=== PATIENT | female | born 1970 | race Caucasian/White ===

== ENCOUNTER 2020-12-29 10:11 | Emergency (ER) | payer OTHER, SELFPAY ==
[2020-12-29] VITALS (7 sets, daily range): BP systolic 150–189; BP diastolic 83–97; PULSE 47–69; RESP 14–18; TEMP 35.9–37.3; O2SAT 93–98; BMI 33.3
--- NOTE | ~2020-12-29 | XR_ITS ---
EXAMINATION: THORACIC AND LUMBAR SPINE X-RAY CLINICAL INFORMATION: Check for wire COMPARISON: None TECHNIQUE: 2 views of the thoracic spine and 2 views of the lumbar spine FINDINGS: Thoracic spine: Bone alignment is normal. No fracture or dislocation is seen. There is multilevel degenerative spondylosis. Paraspinal soft tissues are normal. No foreign body or surgical device is seen. Lumbar spine: Bone alignment is normal. No fracture or dislocation is seen. The disc spaces are normal. There is lower lumbar spine facet arthritis. There are surgical clips in the right upper quadrant suggestive of previous cholecystectomy. There is excreted contrast in the renal collecting systems and bladder. No foreign body is seen. No surgical device in the lumbar spine is seen. XR/XR lumbar spine 2-3V IMPRESSION: No foreign body or surgical device in the thoracic or lumbar spine is seen.
--- NOTE | ~2020-12-29 | CT_ITS ---
EXAMINATION: CT ANGIOGRAM HEAD CT ANGIOGRAM NECK CLINICAL INFORMATION: Aneurysm. Headache. COMPARISON: CT head from 12/29/2020. TECHNIQUE: Initial noncontrast temp recruiter imaging of the head and neck was performed. Comparison is made with noncontrast head CT from earlier today. Test bolus sequences followed by intravenous administration 70 mL of Omnipaque 350. Helical imaging was performed in the axial plane from the aortic arch to the skull vertex. Delayed postcontrast imaging of the head was also performed. The data was processed at the wood technologist's workstation for generation of MIP sequences. Angled MIPs and volume rendered reformatted images were also generated at an offline 3D workstation. Stenoses are assessed in accordance with NASCET criteria unless otherwise indicated. This CT examination was performed using dose optimization techniques as appropriate, variously including the following: *Automated exposure control. *Adjustment of mA and/or kV according to patient size (this includes techniques or standardized protocols for targeted exams where dose is matched to indication/reason for exam; i.e. extremities or head). *Use of iterative reconstruction technique. DLP: 1652 mGy-cm FINDINGS: CT Head: There appears to be a degree of confluent central pontine hypoattenuation. Otherwise, there is no evidence of acute intracranial hemorrhage or edematous territorial infarction. There is no abnormal attenuation within the brain parenchyma. Simon-white matter differentiation is preserved. The ventricles are normal in size and configuration. No evidence for obstructive hydrocephalus. No abnormal mass effect or midline shift. No extra-axial fluid collections. No pathologic intra-axial enhancement. No acute soft tissue or osseous abnormalities. Mild mucosal thickening of the paranasal sinuses. Periapical lucencies associated with the maxillary right 2nd premolar and mandibular bilateral premolars/molars. The mastoid air cells and middle ear cavities are clear. CT Neck: The thyroid gland and remaining cervical soft tissues are within normal limits. Reversal the normal cervical lordosis centered on C4. Right convex curvature of the cervicothoracic junction. Moderate degenerative arthropathy of the atlantodental articulation with calcification of the transverse ligament. There is a well ossified structure filling the right-sided C5-C6 neural foramen. Facet and uncovertebral joint arthropathy leads to osseous encroachment on the neural foramina at C7-T1 and T1-T2. CT Upper Chest: Few scattered perivascular groundglass opacities in the visualized upper lungs. Upper mediastinum are within normal limits. Neck CTA: Aortic Arch: The visualized portion of the ascending aorta measures up to 4.1 cm in diameter. Normal contour and caliber of the aortic arch. Two vessel branching pattern of the arch with left common carotid artery arising from the brachiocephalic trunk. Great Vessel Origins: No significant stenosis of the branch origins. Right Common Carotid Artery: No focal stenosis or occlusion. Cervical Right Internal Carotid Artery: Mild calcific atherosclerotic disease of the carotid bulb and proximal internal carotid artery without flow-limiting stenosis. Retropharyngeal course. Left Common Carotid Artery: No focal stenosis or occlusion. Cervical Left Internal Carotid Artery: Mild calcific atherosclerotic disease of the carotid bulb and proximal internal carotid artery without flow-limiting stenosis. Retropharyngeal course. Cervical Right Vertebral Artery: Co-dominant. No focal stenosis or occlusion. Cervical Left Vertebral Artery: Co-dominant. No focal stenosis or occlusion. Brain CTA: Intracranial Internal Carotid Arteries: Calcific atherosclerotic disease of the intracranial internal carotid arteries without occlusion or flow-limiting stenosis. Right Anterior Cerebral Artery: Normal A1 segment. Normal opacification of the distal BIENVENIDO segments. Left Anterior Cerebral Artery: Normal A1 segment. Normal opacification of the distal BIENVENIDO segments. Anterior Communicating Artery: Normal. Right Middle Cerebral Artery: Normal M1 segment of the MCA without focal stenosis or occlusion. Normal arborization of the distal segments. Left Middle Cerebral Artery: Normal M1 segment of the MCA without focal stenosis or occlusion. Normal arborization of the distal segments. Right Vertebral Artery: There is a focal moderate narrowing of the mid V4 segment just proximal to the takeoff of the posterior inferior cerebellar artery (image [id number]). 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 Normal opacification of the proximal segments of the posterior inferior cerebellar artery. Partial reconstitution in caliber of the distal V4 segment. Left Vertebral Artery: Normal V4 segment. Normal opacification of the proximal segments of the posterior inferior cerebellar artery. Basilar Artery: Normal without focal stenosis or occlusion. Normal appearance of the proximal superior cerebellar arteries. Right Posterior Cerebral Artery: Normal P1 segment. Normal opacification of the distal ACQUISITION ANALYST segments. Left Posterior Cerebral Artery: Normal P1 segment. Normal opacification of the distal ACQUISITION ANALYST segments. Normal opacification of the superior sagittal, straight, transverse, and sigmoid sinuses. CT/CT angio head neck IMPRESSION: 1. Apparent confluent region of central pontine hypoattenuation. Recommend further characterization with MRI. 2. Moderate focal narrowing of the mid V4 segment of the right vertebral artery just proximal to the origin of the right-sided PICA. There is a 0.1 cm sessile aneurysmal outpouching of the anterior wall the V4 segment just proximal to the stenosis. 3. No evidence of additional acute intracranial hemorrhage or edematous territorial infarction. 4. CTA of the head and neck without additional proximal occlusion or flow-limiting stenosis.
--- NOTE | ~2020-12-29 | CT_ITS ---
EXAMINATION: CT HEAD WITHOUT CONTRAST CLINICAL INFORMATION: Right-sided headache, neck pain. COMPARISON: CT head noncontrast 01/21/2013 TECHNIQUE: Contiguous axial imaging was performed from the skull base to vertex without intravenous administration of contrast. Additional 2-D coronal and sagittal reformatted images are generated on the CT workstation and uploaded to PACS. This CT examination was performed using dose optimization techniques as appropriate, variously including the following: *Automated exposure control *Adjustment of mA and/or kV according to patient size (this includes techniques or standardized protocols for targeted exams where dose is matched to indication/reason for exam; i.e. extremities or head) *Use of iterative reconstruction technique DLP: 702 mGy-cm FINDINGS: There is no intracranial hemorrhage, hematoma, or extra-axial fluid collection. The ventricles are normal in size. There is no hydrocephalus or mass effect. There is subtle accentuated decreased attenuation in the right vertex white matter. No cortical involvement or mass effect. The marrero-white matter is otherwise symmetric. No midline shift. There is no visible acute territorial infarct or visible mass lesion. The calvarium appears intact. There is no pneumocephalus or orbital emphysema. The visualized sinuses and middle ears and mastoid air cells show no significant mucosal thickening. There are no air-fluid levels. CT/CT head/brain wo con IMPRESSION: 1. Question subtle decreased attenuation white matter right vertex. No mass effect. This may be further assessed with MRI brain. 2. No intracranial hemorrhage,, hydrocephalus, or midline shift.
--- NOTE | ~2020-12-29 | XR_ITS ---
EXAMINATION: THORACIC AND LUMBAR SPINE X-RAY CLINICAL INFORMATION: Check for wire COMPARISON: None TECHNIQUE: 2 views of the thoracic spine and 2 views of the lumbar spine FINDINGS: Thoracic spine: Bone alignment is normal. No fracture or dislocation is seen. There is multilevel degenerative spondylosis. Paraspinal soft tissues are normal. No foreign body or surgical device is seen. Lumbar spine: Bone alignment is normal. No fracture or dislocation is seen. The disc spaces are normal. There is lower lumbar spine facet arthritis. There are surgical clips in the right upper quadrant suggestive of previous cholecystectomy. There is excreted contrast in the renal collecting systems and bladder. No foreign body is seen. No surgical device in the lumbar spine is seen. XR/XR thoracic spine 2V IMPRESSION: No foreign body or surgical device in the thoracic or lumbar spine is seen.
--- NOTE | ~2020-12-29 | MR_ITS ---
EXAMINATION: MR BRAIN WITHOUT CONTRAST CLINICAL INFORMATION: Hypoattenuation of the abbi. Posterior fossa cerebrovascular accident. COMPARISON: CTA head and neck from 12/29/2020. TECHNIQUE: MRI of the brain was obtained using routine sequences without contrast. FINDINGS: No focal restricted diffusion is demonstrated to suggest acute or subacute cerebral ischemia. No evidence of acute or chronic hemorrhagic products on heme-sensitive imaging. Scattered periventricular, deep white matter, and brainstem T2 FLAIR hyperintensities consistent with moderate underlying microangiopathy. The ventricles are normal in morphology and size. No abnormal mass effect. No midline shift. Normal appearance of the pituitary gland. Normal positioning of the cerebellar tonsils. Normal arterial and venous vascular flow voids are present. Normal, homogeneous marrow signal. Mild mucosal thickening of the paranasal sinuses. No signal abnormalities within the mastoids. MR/MR head/brain wo con IMPRESSION: 1. No acute intracranial abnormalities. 2. Moderate nonspecific white matter changes most commonly seen with microangiopathy.
--- NOTE | 2020-12-29 11:10 | ED.HA ---
HPI - Headache General Chief Complaint: Headache Stated Complaint: N/V W/DIZZINESS Time Seen by Provider: 12/29/20 11:09 Related Data Allergies Allergy/AdvReac Type Severity Reaction Status Date / Time azithromycin [From ZITHROMAX] Allergy Intermediate HIVES & Unverified 01/02/20 16:26 RASH bupropion [From WELLBUTRIN] Allergy Mild RASH Unverified 01/02/20 16:26 venlafaxine [From EFFEXOR] Allergy Mild RASH Unverified 01/02/20 16:26 citalopram [Celexa] Allergy Unknown Verified 11/12/14 00:00 doxycycline [DOXYCYCLINE] AdvReac Mild NAUSEA & Unverified 01/02/20 16:26 VOMITING BuPROPion HCl Allergy Unknown Uncoded 11/12/14 00:00 Doxycycline Hyclate Allergy Unknown Uncoded 11/12/14 00:00 PMFSH Past Medical History Medical History (Updated 12/29/20 @ 11:08 by Rosalina Liriano RN) Coronary artery disease Hypertension Physical Exam Vital Signs: Vital Signs: Last Vital Signs Temp 96.7 F L 12/29/20 11:06 Pulse 67 12/29/20 11:06 Resp 16 12/29/20 11:06 BP 189/88 H 12/29/20 11:06 Pulse Ox 98 12/29/20 11:06 Body Mass Index 33.3 Course Course Course Narrative: 11:12 am- 50-year-old female with 5 days of right-sided neck pain and right-sided headache. Patient had COVID at the end of November. Patient denies visual changes. Patient has migraines but states this is not like her usual migraine. Patient has no focal neuro deficits. Patient is safe to wait in the waiting room. Ordered head CT, labs, inflammatory markers.
[2020-12-29 12:37] LABS: Basophils Percent Auto 0.3 % (0-2); Hemoglobin 12.9 g/dl (12.0-16.0); Imm Gran Abs Auto 0.04 X10*3/uL (0.00-0.03); Imm Gran Pct Auto 0.6 % (0.0-0.4); MANUAL DIFF FLAG SCAN; Mean Corpuscular Hemoglobin 30.1 pg (27.0-33.0); PLT CLUMP 1; Red Blood Count 4.28 X10*6/uL (4.20-5.50); Red Cell Distribution Width 13.2 % (11.0-16.0); SCAN SMEAR FLAG 1
[2020-12-29 12:38] LABS: Eosinophils Absolute Auto 0.2 X10*3/uL (0.0-0.4); Eosinophils Percent Auto 2.7 % (0-4); Hematocrit 38.8 % (37-47); Lymphocytes Absolute Auto 1.8 X10*3/uL (1.2-4.9); Lymphocytes Percent Auto 25.9 % (20-40); Mean Corpuscular HGB Conc 33.2 g/dl (31.0-35.0); Mean Corpuscular Volume 90.7 fL (80-98); Mean Platelet Volume 9.9 fL (9.4-12.3); Monocytes Absolute Auto 0.6 X10*3/uL (0.1-1.2); Monocytes Percent Auto 8.1 % (2-11); Neutrophils Absolute Auto 4.4 X10*3/uL (2.0-8.3); Neutrophils Percent Auto 62.4 % (45-73)
[2020-12-29 12:50] LABS: Alanine Aminotransferase 44 U/L (0-31); Albumin Level 3.5 g/dL (3.5-5.0); Alkaline Phosphatase 198 U/L (39-117); Anion Gap 12 (12-20); Aspartate Amino Transferase 73 U/L (5-31); Bilirubin Total 0.6 mg/dL (0.0-1.0); Blood Urea Nitrogen 8 mg/dL (9-16); C Reactive Protein 1.33 mg/dL (< or = 0.50); Calcium 8.8 mg/dL (8.4-10.2); Carbon Dioxide 24 mmol/L (22-29); Chloride 107 mmol/L (96-108); Creatinine Clr Calc Pharmacy 116.5; Estimated Glomerular Filt Rate > 60; Glucose Random 236 mg/dL (60-115); Potassium 4.1 mmol/L (3.3-5.1); Sodium 139 mmol/L (135-145); Total Protein 6.5 g/dL (6.5-8.0)
--- NOTE | 2020-12-29 12:51 | ED_ITS ---
HPI - Headache General Chief Complaint: Headache Stated Complaint: N/V W/DIZZINESS Time Seen by Provider: 12/29/20 11:09 History of Present Illness HPI Narrative: The patient is a 50-year-old female with a history of coronary artery disease history of aortic aneurysms. History of diabetes. Presented today with having headaches. She also has a history of migraines. Patient's headache i on the right side. It is dull. Associated with nausea. Patient claims the headache has been ongoing for about 5 days been fairly constant and was fairly abrupt in onset. Patient denies any diaphoresis. Denies any new focal weakness. Patient denies any fever chills any neck pain. No recent travel. Patient claims the headache is slightly different than previous bouts of migraine. Related Data Home Medications Medication Instructions Recorded Confirmed acetaminophen 500 mg tablet 1 tab PO Q6H PRN 12/29/20 12/29/20 albuterol sulfate mg INHALATION Q4-6H PRN 12/29/20 albuterol sulfate 90 mcg/actuation 2 puff INHALATION Q4H PRN 12/29/20 12/29/20 aerosol inhaler aspirin 81 mg tablet,delayed 1 tab PO DAILY 12/29/20 12/29/20 release carvedilol 12.5 mg tablet 1 tab PO BID 12/29/20 12/29/20 clopidogrel 75 mg tablet 1 tab PO DAILY 12/29/20 12/29/20 etanercept 50 mg/mL (1 mL) 1 syringe SUBCUT QWEEK 12/29/20 12/29/20 subcutaneous pen injector (Enbrel SureClick) fluticasone propionate 110 2 puff INHALATION BID 12/29/20 12/29/20 mcg/actuation HFA aerosol inhaler (Flovent HFA) glipizide 5 mg tablet, extended 1 tab PO DAILY 12/29/20 12/29/20 release 24 hr pregabalin 150 mg capsule mg PO BEDTIME 12/29/20 Allergies Allergy/AdvReac Type Severity Reaction Status Date / Time azithromycin [From ZITHROMAX] Allergy Intermediate HIVES & Unverified 01/02/20 16:26 RASH bupropion [From WELLBUTRIN] Allergy Mild RASH Unverified 01/02/20 16:26 venlafaxine [From EFFEXOR] Allergy Mild RASH Unverified 01/02/20 16:26 citalopram [Celexa] Allergy Unknown Unknown Verified 12/29/20 12:03 doxycycline [DOXYCYCLINE] AdvReac Mild NAUSEA & Unverified 01/02/20 16:26 VOMITING BuPROPion HCl Allergy Unknown Anaphylaxis Uncoded 12/29/20 12:03 Doxycycline Hyclate Allergy Unknown Unknown Uncoded 12/29/20 12:03 Review of Systems Review of Systems: Positive headache Positive nausea All systems reviewed otherwise negative [facility] Past Medical History Attestation statement: The following information was validated with the patient. Medical History Coronary artery disease Hypertension Social History Social History Alcohol intake: never Patient Tobacco Use Status: Never used Tobacco Use of substances other than those prescribed or required for medical reasons: No Advance Directives: No Advance Directives Information Provided: No Physical Exam Vital Signs: Vital Signs: Last Vital Signs Temp 99.1 F 12/29/20 19:01 Pulse 47 L 12/29/20 19:01 Resp 15 12/29/20 19:01 BP 164/83 H 12/29/20 19:01 Pulse Ox 93 12/29/20 19:01 Body Mass Index 33.3 Appearance: Alert. Oriented X3. No acute distress. Eyes: Pupils equal, round and reactive to light. ENT: Pharynx normal. Neck: Normal inspection. Neck supple. No lymph nodes noted. No crepitus CVS: Normal heart rate and rhythm. Pulses normal. Normal S1 and S2 Respiratory: No respiratory distress. Breath sounds normal. No Wheezing. No rales Abdomen: Soft and nontender. No rigidity. No distention. good BS x4 Skin: Skin warm and dry. Normal skin color. Normal skin turgor. Extremities: No lower extremity edema. Neurovascular intact to all extremities. No Lacerations. No Rash Neuro: Oriented X 3. No motor deficit. No sensory deficit. Moving all extermities. No slurred speech. Cranial nerves 2-12 grossly intact. [id number] intact. Rapid alternating movement intact. NIH Stroke Scale Internal: Initial- Upon Arrival Level of Consciousness: Alert Level of Consciousness Questions: Answers both questions correctly Level of Consciousness Commands: Performs both tasks correctly Best Gaze: Normal Visual: No visual loss Facial Palsy: Normal Motor Arm (Right): No drift Motor Arm (Left): No drift Motor Leg (Right): No drift Motor Leg (Left): No drift Limb Ataxia: Absent Sensory: Normal Best Language: No aphasia Dysarthia: Normal Extinction and Inattention: No abnormality Score: 0 MDM - Headache MDM Narrative Medical decision making narrative: Patient's CT the head was grossly negative for any acute evidence of bleeding. CTA of the head showed no obvious new occlusion. Patient's MRI of the head was negative for any acute evidence of stroke mass. Patient given multiple doses of pain medication with moderate relief. There is an aneurysm noted but patient has a history of the same. Patient is being follow on an outpatient basis. Will discharge patient home. Neurologically intact. NIH stroke scale was 0. In stable condition. Will discharge home. Patient has no fever no chills no nuchal rigidity unlikely secondary to meningitis. Differential Diagnosis Differential diagnosis: Likely migraine, tension headache, subarachnoid hemorrhage, headache and meningitis Medical Records Attestation: I reviewed the patient's medical records. Lab Data Attestation: I reviewed the patient's lab results. Result diagrams: 12/29/20 12:20 12/29/20 12:20 Labs: Lab Results 12/29/20 12/29/20 12/29/20 Range/Units 12:20 12:20 12:20 WBC 7.0 (4.8-10.8) X10*3/uL RBC 4.28 (4.20-5.50) X10*6/uL Hgb 12.9 (12.0-16.0) g/dl Hct 38.8 (37-47) % MCV 90.7 (80-98) fL MCH 30.1 (27.0-33.0) pg MCHC 33.2 (31.0-35.0) g/dl RDW 13.2 (11.0-16.0) % Plt Count 106 L (160-400) X10*3/uL MPV 9.9 (9.4-12.3) fL Immature Gran % (Auto) 0.6 H (0.0-0.4) % Neut % (Auto) 62.4 (45-73) % Lymph % (Auto) 25.9 (20-40) % Benzie % (Auto) 8.1 (2-11) % Eos % (Auto) 2.7 (0-4) % Baso % (Auto) 0.3 (0-2) % Lymph # (Auto) 1.8 (1.2-4.9) X10*3/uL Benzie # (Auto) 0.6 (0.1-1.2) X10*3/uL Eos # (Auto) 0.2 (0.0-0.4) X10*3/uL Baso # (Auto) 0.0 (0.0-0.2) X10*3/uL Abs Immat Gran (auto) 0.04 H (0.00-0.03) X10*3/uL Absolute Neuts (auto) 4.4 (2.0-8.3) X10*3/uL Absolute Nucleated RBC 0.000 (0.0-0.012) X10*3/uL Nucleated RBC % (auto) 0.0 (0.0-0.2) /100WBC Smear Tech's Comments VERIFIED ESR 63 H (0-20) MM/HR Sodium 139 (135-145) mmol/L Potassium 4.1 (3.3-5.1) mmol/L Chloride 107 (96-108) mmol/L Carbon Dioxide 24 (22-29) mmol/L Anion Gap 12 (12-20) BUN 8 L (9-16) mg/dL Creatinine 0.65 (0.5-1.4) mg/dL Estim Creat Clear Calc 116.5 Estimated GFR > 60 Random Glucose 236 H (60-115) mg/dL Calcium 8.8 (8.4-10.2) mg/dL Total Bilirubin 0.6 (0.0-1.0) mg/dL AST 73 H (5-31) U/L ALT 44 H (0-31) U/L Alkaline Phosphatase 198 H (39-117) U/L C-Reactive Protein 1.33 H (< or = 0.50) mg/dL Total Protein 6.5 (6.5-8.0) g/dL Albumin 3.5 (3.5-5.0) g/dL Discharge Plan Discharge Clinical Impression: Headache Patient Disposition: Home, Self-Care Instructions: Acute Headache (ED) Prescriptions: No Action carvedilol 12.5 mg tablet 1 tab PO BID RF: 0 albuterol sulfate 2.5 mg /3 mL (0.083 %) solution for nebulization inhalation Q4-6H PRN (Reason: Shortness Of Breath) RF: 0 glipizide 5 mg tablet extended release 24hr 1 tab PO DAILY RF: 0 clopidogrel 75 mg tablet 1 tab PO DAILY RF: 0 aspirin 81 mg tablet,delayed release (DR/EC) 1 tab PO DAILY RF: 0 acetaminophen 500 mg tablet 1 tab PO Q6H PRN (Reason: Pain) RF: 0 albuterol sulfate 90 mcg/actuation HFA aerosol inhaler 2 puff inhalation Q4H PRN (Reason: wheezing) RF: 0 Flovent HFA 110 mcg/actuation HFA aerosol inhaler 2 puff inhalation BID RF: 0 pregabalin 150 mg capsule PO BEDTIME RF: 0 Enbrel SureClick 50 mg/mL (1 mL) pen injector 1 syringe subcut QWEEK RF: 0 Referrals: Physician,Unknown [Primary Care Provider] - 2 days (An aneurysm was also found in your aorta. You have a history of aneurysm in your aorta. Please closely follow-up with your surgeon.)
[2020-12-29 12:54] LABS: Platelet Count 106 X10*3/uL (160-400); SLIDE REVIEW VERIFIED
[2020-12-29] MEDS: Metoclopramide HCl 10 MG/2 ML VIAL IVPUSH (13:11)
[2020-12-29] MEDS: diphenhydrAMINE HCL 50 MG/ML VIAL 25 MG IVPUSH (13:11)
[2020-12-29] MEDS: HYDROmorphone HCl 0.5 MG/0.5 ML SYRINGE IVPUSH ×3 (13:12→19:06)
[2020-12-29 13:31] LABS: Erythrocyte Sedimentation Rate 63 MM/HR (0-20)
== END 2020-12-29 19:27 | disposition home or self-care (01) ==
PROVIDERS: Physician Assistant; Emergency Provider Emergency Medicine Emergency Medical Services
DX: R51.9 Headache, unspecified (principal); M54.2 Cervicalgia; M54.5 Low back pain; M54.6 Pain in thoracic spine; I25.10 Atherosclerotic heart disease of native coronary artery without angina pectoris; E11.9 Type 2 diabetes mellitus without complications; Z79.899 Other long term (current) drug therapy
CPT/HCPCS: 36415; 70450; 70496; 70498; 70551; 72070; 72100; 80053; 85025; 85652; 86140; 96374; 96375; 96376; 99284; 99285; J1170; J1200; J2765

== ENCOUNTER 2021-02-04 11:26 | Outpatient (REF) | payer OTHER, SELFPAY ==
--- NOTE | ~2021-02-04 | US_ITS ---
EXAMINATION: US ABDOMEN COMPLETE CLINICAL INFORMATION: Elevated LFTs. COMPARISON: Previous exam October 2019 TECHNIQUE: Real-time imaging of the abdominal viscera. FINDINGS: PANCREAS: Normal. ABDOMINAL AORTA: The proximal, mid, and distal segments are normal in caliber. INFERIOR VENA CAVA: Visualized portions are normal. LIVER: The liver is enlarged. Liver echotexture is slightly increased. Contours normal. No focal hepatic lesion. There is no intrahepatic biliary duct dilatation seen. GALLBLADDER: Surgically absent. COMMON BILE DUCT: Normal in caliber measuring 0.87 cm in diameter. RIGHT KIDNEY: Normal. No hydronephrosis. No renal calculi or focal parenchymal lesions. The kidney measures 13.4 cm in maximum dimension. LEFT KIDNEY: Normal. No hydronephrosis. No renal calculi or focal parenchymal lesions. The kidney measures 14.0 cm in maximum dimension. SPLEEN: The spleen is slightly enlarged. The spleen measures 15.5 cm in maximum dimension. FREE FLUID: None. US/US abdomen complete IMPRESSION: Enlarged echogenic liver probably representing fatty infiltration. Slightly enlarged spleen.
[2021-02-04 14:03] LABS: Basophils Percent Auto 0.4 % (0-2); Hemoglobin 14.3 g/dl (12.0-16.0); MANUAL DIFF FLAG SCAN; Mean Platelet Volume 10.8 fL (9.4-12.3); Monocytes Absolute Auto 0.4 X10*3/uL (0.1-1.2); PLT CLUMP 1; SCAN SMEAR FLAG 1
[2021-02-04 14:05] LABS: Eosinophils Absolute Auto 0.2 X10*3/uL (0.0-0.4); Eosinophils Percent Auto 2.9 % (0-4); Hematocrit 42.1 % (37-47); Imm Gran Abs Auto 0.04 X10*3/uL (0.00-0.03); Imm Gran Pct Auto 0.6 % (0.0-0.4); Lymphocytes Absolute Auto 1.9 X10*3/uL (1.2-4.9); Lymphocytes Percent Auto 26.6 % (20-40); Mean Corpuscular Hemoglobin 30.2 pg (27.0-33.0); Mean Corpuscular Volume 88.8 fL (80-98); Monocytes Percent Auto 5.9 % (2-11); Neutrophils Absolute Auto 4.5 X10*3/uL (2.0-8.3); Neutrophils Percent Auto 63.6 % (45-73); Platelet Count 119 X10*3/uL (160-400); Red Blood Count 4.74 X10*6/uL (4.20-5.50); Red Cell Distribution Width 12.7 % (11.0-16.0)
[2021-02-04 14:09] LABS: INTERNATIONAL NORM RATIO 1.1 (0.9-1.1); Prothrombin Time 12.1 SEC (9.9-13.0)
[2021-02-04 14:29] LABS: Alanine Aminotransferase 101 U/L (0-31); Albumin Level 3.8 g/dL (3.5-5.0); Alkaline Phosphatase 197 U/L (39-117); Aspartate Amino Transferase 173 U/L (5-31); Bilirubin Direct 0.2 mg/dL (0.0-0.5); Bilirubin Total 0.5 mg/dL (0.0-1.0); Total Protein 7.3 g/dL (6.5-8.0)
[2021-02-11 17:21] LABS: FIB-ALT 92 U/L (6-29); FIB-Alpha-2-Macroglobulin 370 mg/dL (106-279); FIB-Apolipoprotein A1 127 mg/dL (101-198); FIB-GGT 718 U/L (3-55); FIB-Haptoglobin 247 mg/dL (43-212); FIB-Total Bilirubin 0.4 mg/dL (0.2-1.2); Liver Fibrosis Score 0.67; Liver Fibrosis Stage F3; Nec Inflam Act Grade A3; Nec Inflam Act Score 0.67
== END 2021-02-04 11:27 | disposition home or self-care (01) ==
LOC: HO.HMGCX 11:26
PROVIDERS: PCP Physician Assistant Medical; Visit Provider Internal Medicine Gastroenterology
DX: R79.89 Other specified abnormal findings of blood chemistry (principal)
CPT/HCPCS: 36415; 76700; 80076; 81596; 85025; 85610

== ENCOUNTER 2021-03-26 09:56 | Emergency (ER) | payer OTHER, SELFPAY ==
--- NOTE | ~2021-03-26 | CT_ITS ---
EXAMINATION: CT ABDOMEN AND PELVIS WITH CONTRAST CLINICAL INFORMATION: Right abdominal pain. History of cholecystectomy. COMPARISON: None TECHNIQUE: Multidetector volumetric images were obtained from the superior aspect of the liver through the pubic symphysis following administration 85 mL of Omnipaque 350 intravenous contrast. Sagittal and coronal reformatted images were obtained on the technologist's workstation. Oral contrast: No This CT examination was performed using dose optimization techniques as appropriate, variously including the following: *Automated exposure control *Adjustment of mA and/or kV according to patient size (this includes techniques or standardized protocols for targeted exams where dose is matched to indication/reason for exam; i.e. extremities or head) *Use of iterative reconstruction technique DLP: 8.9 mGy-cm FINDINGS: LUNG BASES: There is minimal right basilar dependent atelectasis. The heart size is borderline normal. There are coronary artery calcifications present LIVER, GALLBLADDER, AND BILIARY TREE: The liver is mildly enlarged in size measuring 22 cm in length, normal shape, and attenuation. No focal hepatic lesion or biliary ductal dilatation is present. The gallbladder has been surgically removed. PANCREAS: Unremarkable. SPLEEN: Unremarkable. ADRENAL GLANDS: Unremarkable. KIDNEYS AND URETERS: The kidneys are normal in size, shape, and attenuation. No hydronephrosis, hydroureter, or calculi seen. No perinephric stranding. BLADDER: Unremarkable. GASTROINTESTINAL TRACT: There is scattered stool seen throughout the entire colon without distention. There is nonspecific mild haziness in the right paracolic gutter but no mass or lymph nodes seen. ABDOMINAL WALL: No significant hernia is appreciated. LYMPH NODES: Normal. VASCULAR: Unremarkable. PELVIC VISCERA: There are bilateral ovarian cysts. The left cyst measures 3.4 x 2.6 cm and the right cyst measures 1.6 cm. The uterus is anteverted and appears unremarkable. OSSEOUS STRUCTURES: There is small millimeter sclerotic lesion right proximal femur.. No aggressive lytic or sclerotic process seen. There is mild L4-L5 and L5-S1 facet joint arthropathy. CT/CT abdomen pelvis w con IMPRESSION: No acute intra-abdominal process seen. Nonspecific haziness in the right paracolic gutter. Normal appendix. Normal small bowel, terminal ileum and cecum. No radiopaque urolith or hydroureteronephrosis. Fleischner guidelines were followed.
[2021-03-26 10:04] VITALS: BP 181/85; PULSE 71; O2SAT 98
[2021-03-26 10:09] VITALS: BP 188/79; PULSE 70; RESP 18; TEMP 37.1; O2SAT 95; BMI 34.1
--- NOTE | 2021-03-26 10:15 | ED.ABDPAIN ---
HPI - Abdominal Pain General Chief Complaint: Abdominal Pain Stated Complaint: RT UPPER QUAD PAIN Time Seen by Provider: 03/26/21 10:02 Source: patient Limitations: no limitations History of Present Illness HPI narrative: This is a 50-year-old female who complains of pain on the right side of her abdomen. She said it began as a cramping pain 3 4 days ago, but then persisted and became worse and constant. The patient denies any fever. She denies any chest pain shortness of breath. She has chronic nausea denies any change recently, denies vomiting. She denies any constipation or diarrhea. Denies any urinary symptoms. The pain sometimes goes through to the back. She does have a known history of abdominal aortic aneurysm, cardiac stenting, diabetes mellitus, rheumatoid arthritis. Patient had gone to her primary care physician today and was referred to the ED for evaluation Related Data Home Medications Medication Instructions Recorded Confirmed acetaminophen 500 mg tablet 1 tab PO Q6H PRN 12/29/20 12/29/20 albuterol sulfate mg INHALATION Q4-6H PRN 12/29/20 albuterol sulfate 90 mcg/actuation 2 puff INHALATION Q4H PRN 12/29/20 12/29/20 aerosol inhaler aspirin 81 mg tablet,delayed 1 tab PO DAILY 12/29/20 12/29/20 release carvedilol 12.5 mg tablet 1 tab PO BID 12/29/20 12/29/20 clopidogrel 75 mg tablet 1 tab PO DAILY 12/29/20 12/29/20 etanercept 50 mg/mL (1 mL) 1 syringe SUBCUT QWEEK 12/29/20 12/29/20 subcutaneous pen injector (Enbrel SureClick) fluticasone propionate 110 2 puff INHALATION BID 12/29/20 12/29/20 mcg/actuation HFA aerosol inhaler (Flovent HFA) glipizide 5 mg tablet, extended 1 tab PO DAILY 12/29/20 12/29/20 release 24 hr pregabalin 150 mg capsule mg PO BEDTIME 12/29/20 Previous Rx's Medication Instructions Recorded ondansetron HCl 4 mg tablet 4 mg PO Q6H PRN #10 tab 03/26/21 (Zofran) oxycodone-acetaminophen 5 mg-325 1 tab PO Q4-6H PRN #10 tab 03/26/21 mg tablet (Percocet) Allergies Allergy/AdvReac Type Severity Reaction Status Date / Time azithromycin [From ZITHROMAX] Allergy Intermediate HIVES & Verified 03/26/21 10:13 RASH bupropion [From WELLBUTRIN] Allergy Mild RASH Verified 03/26/21 10:13 venlafaxine [From EFFEXOR] Allergy Mild RASH Verified 03/26/21 10:13 citalopram [Celexa] Allergy Unknown Unknown Verified 12/29/20 12:03 doxycycline [DOXYCYCLINE] AdvReac Mild NAUSEA & Verified 03/26/21 10:13 VOMITING BuPROPion HCl Allergy Unknown Anaphylaxis Uncoded 12/29/20 12:03 Doxycycline Hyclate Allergy Unknown Unknown Uncoded 12/29/20 12:03 Review of Systems Review of Systems Yes all other systems are reviewed and are negative Constitutional: Reports as per HPI and Denies fever(s) Eyes: Reports as per HPI and Reports no additional eye complaints Reports system reviewed and no additional complaints, except as documented, Reports as per HPI, Denies nasal congestion, Denies nasal discharge and Denies sore throat Cardiovascular: Reports as per HPI, Denies chest pain and Denies dyspnea Respiratory: Reports as per HPI, Denies cough and Denies dyspnea Gastrointestinal: Reports as per HPI, Denies abdominal pain, Denies diarrhea, Reports nausea and Reports vomiting Genitourinary: Reports as per HPI, Denies hematuria, Denies urinary frequency and Denies dysuria Musculoskeletal: Reports no additional musculoskeletal complaints and Denies numbness Skin/Breast: Reports as per HPI and Denies rash Reports as per HPI, Denies focal weakness, Denies numbness and Denies Sensory deficit (Neuro) Psychiatric: Reports no additional psychiatric complaints and Reports as per HPI Endocrine: Reports no additional endocrine complaints and Reports as per HPI Hematologic/Lymphatic: Reports no additional hematologic/lymphatic complaints, Reports as per HPI and Reports other (No peripheral edema) Physical Exam Vital Signs: Vital Signs: Last Vital Signs Temp 99.0 F 03/26/21 10:56 Pulse 67 03/26/21 13:30 Resp 18 03/26/21 13:30 BP 131/79 03/26/21 13:30 Pulse Ox 94 03/26/21 13:30 BMI result Body Mass Index 34.1 Const: General: cooperative, no acute distress and alert Orientation/consciousness: patient oriented x3 HENMT: Head: Yes normal to inspection Eyes: General: appearance normal, both eyes and all related structures Eyelids: Yes eyelids normal Conjunctivae: conjunctivae normal Pupils: Equal, round and reactive pupils present Neck: Neck: Yes normal visual inspection and Yes supple Chest: Chest palpation & inspection: normal inspection of the chest Resp: Effort & Inspection: normal respiratory effort Auscultation: clear to auscultation bilaterally Cardio: Rate: regular rate Rhythm: regular rhythm Heart sounds: S1 normal heart sound present, S2 normal heart sound present, no gallops, no murmurs and no rubs GI: Palpation (GI): Soft to palpation, Tenderness to palpation present (GI) (Tender just superior to McBurney's point, worse toward the right upper quad) and Other GI palpation findings present (More mild epigastric tenderness, no left-sided tenderness.) Auscultation: normal bowel sounds, abnormal bowel sounds and Hypoactive bowel sounds present Skin: General skin exam: no rashes or lesions noted Neuro: General: patient oriented x3, no focal motor deficits and CN's II-XI intact bilaterally Cranial nerves: Yes Equal, round and reactive pupils present Cognition (Neuro): normal cognition Motor exam (neuro): 5/5 motor strength present throughout Sensory Exam: No Sensory deficit (Neuro) Extrem: General: Yes normal to inspection and Yes no pedal edema Psych: Appearance: grossly normal Affect: normal affect MDM - Abdominal Pain MDM Narrative Medical decision making narrative: Patient with complaint of right abdominal pain, had a somewhat exaggerated response to a light palpation of the abdomen, tender most on the right side. White blood cell count normal. LFTs normal. Urinalysis negative. CT of the abdomen and pelvis showed no concerning findings. Patient was treated with morphine initially but still had what she described as severe pain. She is being treated with an additional mg of Dilaudid as well as Toradol 15 mg IV. She was also given Zofran for nausea. Patient's blood sugar was monitored elevated in the 400 range but has come down with fluids and Lab Data Attestation: I reviewed the patient's lab results. Result diagrams: 03/26/21 10:21 03/26/21 10:21 Labs: Lab Results 03/26/21 03/26/21 03/26/21 Range/Units 10: 10:21 10:40 WBC 8.6 (4.8-10.8) X10*3/uL RBC 4.93 (4.20-5.50) X10*6/uL Hgb 14.8 (12.0-16.0) g/dl Hct 43.5 (37.0-47.0) % MCV 88.2 (80.0-98.0) fL MCH 30.0 (27.0-33.0) pg MCHC 34.0 (31.0-35.0) g/dl RDW 12.5 (11.0-16.0) % Plt Count 126 L (160-400) X10*3/uL MPV 10.4 (9.4-12.3) fL Immature Gran % (Auto) 0.3 (0.0-0.4) % Neut % (Auto) 68.8 (45-73) % Lymph % (Auto) 22.8 (20-40) % [place] % (Auto) 5.0 (2-11) % Eos % (Auto) 2.8 (0-4) % Baso % (Auto) 0.3 (0-2) % Lymph # (Auto) 2.0 (1.2-4.9) X10*3/uL [place] # (Auto) 0.4 (0.1-1.2) X10*3/uL Eos # (Auto) 0.2 (0.0-0.4) X10*3/uL Baso # (Auto) 0.0 (0.0-0.2) X10*3/uL Abs Immat Gran (auto) 0.03 (0.00-0.03) X10*3/uL Absolute Neuts (auto) 5.9 (2.0-8.3) x10*3/uL Absolute Nucleated RBC 0.000 (0.0-0.012) X10*3/uL Nucleated RBC % (auto) 0.0 (0.0-0.2) /100WBC Sodium 135 (135-145) mmol/L Potassium 4.7 (3.3-5.1) mmol/L Chloride 102 (96-108) mmol/L Carbon Dioxide 25 (22-29) mmol/L Anion Gap 13 (12-20) BUN 10 (9-16) mg/dL Creatinine 0.77 (0.5-1.4) mg/dL Estim Creat Clear Calc 99.5 Estimated GFR > 60 POC Glucose (60-115) mg/dL Random Glucose 423 H* (60-115) mg/dL Calcium 9.2 (8.4-10.2) mg/dL Total Bilirubin 0.3 (0.0-1.0) mg/dL Direct Bilirubin < 0.2 (0.0-0.5) mg/dL AST 65 H (5-31) U/L ALT 53 H (0-31) U/L Alkaline Phosphatase 154 H D (39-117) U/L Total Protein 7.2 (6.5-8.0) g/dL Albumin 3.6 (3.5-5.0) g/dL Lipase 38 (8-78) U/L Urine Color YELLOW Urine Appearance CLEAR Urine pH 6.0 (5.0-8.0) Ur Specific [place] 1.015 (1.005-1.025) Urine Protein 2+ H (NEG-TRACE) MG/DL Urine Glucose (UA) >=1000 H (NEG) MG/DL Urine Ketones NEG (NEG) MG/DL Urine Blood NEG (NEG) Urine Nitrite NEG (NEG) Ur Leukocyte Esterase NEG (NEG) Urine RBC 0 (0) /HPF Urine WBC 0 (0-4) /HPF Ur Squamous Epith Cells TRACE /LPF Urine Bacteria NONE /LPF Urine Test (NEGATIVE) 03/26/21 03/26/21 03/26/21 Range/Units 10:40 11:27 12:46 WBC (4.8-10.8) X10*3/uL RBC (4.20-5.50) X10*6/uL Hgb (12.0-16.0) g/dl Hct (37.0-47.0) % MCV (80.0-98.0) fL MCH (27.0-33.0) pg MCHC (31.0-35.0) g/dl RDW (11.0-16.0) % Plt Count (160-400) X10*3/uL MPV (9.4-12.3) fL Immature Gran % (Auto) (0.0-0.4) % Neut % (Auto) (45-73) % Lymph % (Auto) (20-40) % [place] % (Auto) (2-11) % Eos % (Auto) (0-4) % Baso % (Auto) (0-2) % Lymph # (Auto) (1.2-4.9) X10*3/uL [place] # (Auto) (0.1-1.2) X10*3/uL Eos # (Auto) (0.0-0.4) X10*3/uL Baso # (Auto) (0.0-0.2) X10*3/uL Abs Immat Gran (auto) (0.00-0.03) X10*3/uL Absolute Neuts (auto) (2.0-8.3) x10*3/uL Absolute Nucleated RBC (0.0-0.012) X10*3/uL Nucleated RBC % (auto) (0.0-0.2) /100WBC Sodium (135-145) mmol/L Potassium (3.3-5.1) mmol/L Chloride (96-108) mmol/L Carbon Dioxide (22-29) mmol/L Anion Gap (12-20) BUN (9-16) mg/dL Creatinine (0.5-1.4) mg/dL Estim Creat Clear Calc Estimated GFR POC Glucose 322 H 249 H (60-115) mg/dL Random Glucose (60-115) mg/dL Calcium (8.4-10.2) mg/dL Total Bilirubin (0.0-1.0) mg/dL Direct Bilirubin (0.0-0.5) mg/dL AST (5-31) U/L ALT (0-31) U/L Alkaline Phosphatase (39-117) U/L Total Protein (6.5-8.0) g/dL Albumin (3.5-5.0) g/dL Lipase (8-78) U/L Urine Color Urine Appearance Urine pH (5.0-8.0) Ur Specific [place] (1.005-1.025) Urine Protein (NEG-TRACE) MG/DL Urine Glucose (UA) (NEG) MG/DL Urine Ketones (NEG) MG/DL Urine Blood (NEG) Urine Nitrite (NEG) Ur Leukocyte Esterase (NEG) Urine RBC (0) /HPF Urine WBC (0-4) /HPF Ur Squamous Epith Cells /LPF Urine Bacteria /LPF Urine Test NEGATIVE (NEGATIVE) Imaging Data CT scan - abdomen: Radiologist's impression: IMPRESSION: No acute intra-abdominal process seen. ? Nonspecific haziness in the right paracolic gutter. Normal appendix. Normal small bowel, terminal ileum and cecum. ? No radiopaque urolith or hydroureteronephrosis. Discharge Plan Discharge Clinical Impression: Abdominal pain, Hyperglycemia Patient Disposition: Home, Self-Care Instructions: Abdominal Pain (ED) Additional Instructions: Follow-up with primary care physician. Return for any new or worsened symptoms such as uncontrolled abdominal pain, progressively worse pain, fever, vomiting. Prescriptions: New ondansetron HCl [Zofran] 4 mg tablet 4 mg PO Q6H PRN (Reason: nausea and vomiting) Qty: 10 RF: 0 oxycodone-acetaminophen [Percocet] 5-325 mg tablet 1 tab PO Q4-6H PRN (Reason: pain) Qty: 10 RF: 0 No Action carvedilol 12.5 mg tablet 1 tab PO BID RF: 0 albuterol sulfate 2.5 mg /3 mL (0.083 %) solution for nebulization inhalation Q4-6H PRN (Reason: Shortness Of Breath) RF: 0 glipizide 5 mg tablet extended release 24hr 1 tab PO DAILY RF: 0 clopidogrel 75 mg tablet 1 tab PO DAILY RF: 0 aspirin 81 mg tablet,delayed release (DR/EC) 1 tab PO DAILY RF: 0 acetaminophen 500 mg tablet 1 tab PO Q6H PRN (Reason: Pain) RF: 0 albuterol sulfate 90 mcg/actuation HFA aerosol inhaler 2 puff inhalation Q4H PRN (Reason: wheezing) RF: 0 Flovent HFA 110 mcg/actuation HFA aerosol inhaler 2 puff inhalation BID RF: 0 pregabalin 150 mg capsule PO BEDTIME RF: 0 Enbrel SureClick 50 mg/mL (1 mL) pen injector 1 syringe subcut QWEEK RF: 0 PMFSH Past Medical History Medical History (Updated 03/26/21 @ 13:42 by Renny Alexandra MD) Aortic aneurysm Coronary artery disease Diabetes Fatty liver Hypertension Rheumatoid arthritis Surgical History (Updated 03/26/21 @ 10:12 by Edna Avila) Hx of cholecystectomy Social History Social History Alcohol intake: never Patient Tobacco Use Status: Current everyday Tobacco user Smoked in Last 30 Days: Yes Use of substances other than those prescribed or required for medical reasons: No Advance Directives: No Advance Directives Information Provided: Yes
[2021-03-26 10:26] LABS: Basophils Percent Auto 0.3 % (0-2); Red Cell Distribution Width 12.5 % (11.0-16.0)
[2021-03-26 10:28] LABS: Eosinophils Absolute Auto 0.2 X10*3/uL (0.0-0.4); Eosinophils Percent Auto 2.8 % (0-4); Hematocrit 43.5 % (37.0-47.0); Hemoglobin 14.8 g/dl (12.0-16.0); Imm Gran Abs Auto 0.03 X10*3/uL (0.00-0.03); Imm Gran Pct Auto 0.3 % (0.0-0.4); Lymphocytes Percent Auto 22.8 % (20-40); Mean Corpuscular Volume 88.2 fL (80.0-98.0); Mean Platelet Volume 10.4 fL (9.4-12.3); Monocytes Absolute Auto 0.4 X10*3/uL (0.1-1.2); Neutrophils Absolute Auto 5.9 x10*3/uL (2.0-8.3); Neutrophils Percent Auto 68.8 % (45-73); Red Blood Count 4.93 X10*6/uL (4.20-5.50)
[2021-03-26 10:30] LABS: MANUAL DIFF FLAG NO; Platelet Count 126 X10*3/uL (160-400); White Blood Count 8.6 X10*3/uL (4.8-10.8)
[2021-03-26] MEDS: 0.9 % Sodium Chloride 1,000 ML 999 ML IV (10:42)
[2021-03-26] MEDS: ondansetron HCL 4 MG/2 ML VIAL IVPUSH (10:42)
[2021-03-26] MEDS: Morphine Sulfate 4 MG/ML CARTRIDGE IVPUSH (10:42)
[2021-03-26 10:56] VITALS: BP 178/82; PULSE 70; RESP 18; TEMP 37.2; O2SAT 95
[2021-03-26 10:59] LABS: Alanine Aminotransferase 53 U/L (0-31); Albumin Level 3.6 g/dL (3.5-5.0); Alkaline Phosphatase 154 U/L (39-117); Anion Gap 13 (12-20); Aspartate Amino Transferase 65 U/L (5-31); Bilirubin Direct < 0.2 mg/dL (0.0-0.5); Bilirubin Total 0.3 mg/dL (0.0-1.0); Blood Urea Nitrogen 10 mg/dL (9-16); Calcium 9.2 mg/dL (8.4-10.2); Carbon Dioxide 25 mmol/L (22-29); Chloride 102 mmol/L (96-108); Creatinine Clr Calc Pharmacy 99.5; Estimated Glomerular Filt Rate > 60; Glucose Random 423 mg/dL (60-115); Lipase 38 U/L (8-78); Potassium 4.7 mmol/L (3.3-5.1); Sodium 135 mmol/L (135-145); Total Protein 7.2 g/dL (6.5-8.0)
[2021-03-26 11:04] LABS: Appearance Urine CLEAR; Color Urine YELLOW; Glucose Urine UA >=1000 MG/DL (NEG); Leukocyte Esterase Urine NEG (NEG); Nitrite Urine NEG (NEG); Specific Gravity - Urine 1.015 (1.005-1.025); UACC Culture Trigger NO; Urine Blood NEG (NEG); Urine Ketones NEG (NEG); Urine Protein 2+ MG/DL (NEG-TRACE)
[2021-03-26 11:05] LABS: UPreg QC Valid YES; Urine Pregnancy NEGATIVE (NEGATIVE)
--- NOTE | 2021-03-26 11:09 | PC.NURSE ---
provider aware if elevated glucose level.
[2021-03-26 11:13] LABS: Squamous Epithelial Cell Urine TRACE /LPF
[2021-03-26 11:14] LABS: RBC Urine 0 /HPF (0); WBC Urine 0 /HPF (0-4)
[2021-03-26 11:31] LABS: Glucose, Whole Blood 322 mg/dL (60-115)
[2021-03-26] MEDS: iohexoL 350 MG/ML 100 ML INFUS..BTL 85 ML IV (11:34)
[2021-03-26] MEDS: Insulin Lispro 100 UNIT/ML 3 ML VIAL 8 UNIT SUBCUT (11:34)
[2021-03-26 12:50] LABS: Glucose, Whole Blood 249 mg/dL (60-115)
[2021-03-26 13:30] VITALS: BP 131/79; PULSE 67; RESP 18; O2SAT 94
[2021-03-26] MEDS: Ketorolac Tromethamine 30 MG/ML VIAL 15 MG IVPUSH (13:31)
[2021-03-26] MEDS: HYDROmorphone HCl 1 MG/ML SYRINGE IVPUSH (13:31)
[2021-03-26 14:00] VITALS: BP 124/68; PULSE 68; RESP 18; O2SAT 97
== END 2021-03-26 14:12 | disposition home or self-care (01) ==
PROVIDERS: Emergency Provider Emergency Medicine; PCP Physician Assistant Medical
DX: R10.11 Right upper quadrant pain (principal); R73.9 Hyperglycemia, unspecified; Z79.899 Other long term (current) drug therapy; F17.200 Nicotine dependence, unspecified, uncomplicated; Z71.6 Tobacco abuse counseling
CPT/HCPCS: 36415; 74177; 80048; 80076; 81001; 81003; 81025; 82947; 83690; 85025; 96361; 96374; 96375; 99284; J1170; J1885; J2270; J2405; Q9967

== ENCOUNTER → 2022-08-30 10:00 | Outpatient (BNVA) | payer OTHER, SELFPAY | PROVIDERS: PCP Physician Assistant Medical; Visit Provider Registered Nurse Emergency | DX: M96.1 Postlaminectomy syndrome, not elsewhere classified (principal); M48.00 Spinal stenosis, site unspecified; M48.061 Spinal stenosis, lumbar region without neurogenic claudication; M47.14 Other spondylosis with myelopathy, thoracic region; M54.12 Radiculopathy, cervical region | CPT/HCPCS: 99202 ==

== ENCOUNTER 2022-09-27 06:07 | Outpatient (REF) | payer OTHER, SELFPAY ==
--- NOTE | ~2022-09-27 | FL_ITS ---
EXAMINATION: XR FLUOROSCOPY WITH IMAGES CLINICAL INFORMATION: Spondylosis without myelopathy or radiculopathy, lumbar region. COMPARISON: None available. TECHNIQUE: Fluoroscopy Supervised By: Dr. Du Hayes. Fluoroscopy Time: 0.5 minutes. Cumulative Dose: 10.1 mGy. DAP: 2.75 Gycm2. Images: 6. FINDINGS: Images demonstrate needle placement and contrast injection adjacent to the bilateral lateral L3-L4 and L5 vertebrae FL/FL guidance in treatment room IMPRESSION: Fluoroscopy guidance for pain management procedure
== END 2022-09-27 06:08 | disposition home or self-care (01) ==
LOC: CF 06:07
PROVIDERS: Visit Provider Anesthesiology
DX: M47.816 Spondylosis without myelopathy or radiculopathy, lumbar region (principal); M96.1 Postlaminectomy syndrome, not elsewhere classified; M48.00 Spinal stenosis, site unspecified
CPT/HCPCS: 64493; 64494; J2795

== ENCOUNTER → 2022-09-30 11:28 | Outpatient (BNVA) | payer OTHER, SELFPAY | PROVIDERS: PCP Physician Assistant Medical; Visit Provider Registered Nurse Emergency | DX: M96.1 Postlaminectomy syndrome, not elsewhere classified (principal); M48.00 Spinal stenosis, site unspecified; M48.061 Spinal stenosis, lumbar region without neurogenic claudication; M47.14 Other spondylosis with myelopathy, thoracic region; M54.12 Radiculopathy, cervical region | CPT/HCPCS: Q3014 ==

== ENCOUNTER 2023-10-25 07:58 | Outpatient (REF) | payer OTHER, SELFPAY ==
--- NOTE | ~2023-10-25 | US_ITS ---
EXAMINATION: US ABDOMEN COMPLETE CLINICAL INFORMATION: Nausea, fatty liver. COMPARISON: CT abdomen and pelvis 03/26/2021. Ultrasound abdomen complete 02/04/2021 and 10/21/2019. TECHNIQUE: Real-time imaging of the abdominal viscera. FINDINGS: PANCREAS: Limited visualization of pancreatic tail and head. Imaged portion of pancreatic body is unremarkable. ABDOMINAL AORTA: Limited visualization particularly of the [id number] abdominal aorta. Imaged portions of abdominal aorta are nonaneurysmal. INFERIOR VENA CAVA: Visualized portions are normal. LIVER: Hepatomegaly, 18.9 cm. Increased hepatic parenchymal heterogeneity and echogenicity could be associated with hepatocellular disease/hepatic steatosis and substantially limits visualization. Correlation with liver function tests and clinical exam recommended to determine further management. GALLBLADDER: Surgically absent. COMMON BILE DUCT: Normal in caliber measuring 0.7 cm in diameter. RIGHT KIDNEY: No hydronephrosis. No renal calculi. Limited visualization. . The kidney measures 12.9 cm in maximum dimension. LEFT KIDNEY: No hydronephrosis. No renal calculi. Limited visualization. The kidney measures 12.1 cm in maximum dimension. SPLEEN: Splenomegaly. The spleen measures 13.1 cm in maximum dimension. FREE FLUID: None. US/US abdomen complete IMPRESSION: 1. Hepatomegaly, 18.9 cm. Increased hepatic parenchymal heterogeneity and echogenicity could be associated with hepatocellular disease/hepatic steatosis and substantially limits visualization. Correlation with liver function tests and clinical exam recommended to determine further management. 2. Splenomegaly, 13.1 cm. 3. Gallbladder surgically absent.
== END 2023-10-25 07:59 | disposition home or self-care (01) ==
LOC: HO.US 07:58
PROVIDERS: PCP Physician Assistant Medical; Visit Provider Physician Assistant Medical
DX: R11.0 Nausea (principal); K76.0 Fatty (change of) liver, not elsewhere classified
CPT/HCPCS: 76700

== ENCOUNTER 2023-11-07 08:04 | Day surgery (SDC) | payer OTHER, SELFPAY ==
--- NOTE | 2023-11-06 09:50 | HO.ANESPROP2 ---
Documented by User: Ave Rios NP 11/06/23 10:05 HPI - Anesthesia Eval Consult details Narrative: 53yo F for Upper Endoscopy and Colonoscopy Plavix - CAD s/p stent 2018 Anesthesia Pre-Procedure Meds Is the patient on any of the following meds?: SGLT2 Inhib PMFSH Active Problems Active Problems: All Active Problems Lumbar spondylosis (Acute) Cervical radiculitis (Acute) Thoracic spondylosis with cord compression (Acute) Lumbar stenosis (Acute) Spinal stenosis (Acute) Post laminectomy syndrome (Acute) Past Medical History Medical History COPD (chronic obstructive pulmonary disease) Hx LEEP (loop electrosurgical excision procedure), cervix, Neuropathy Lumbar spondylosis Cervical radiculitis Lumbar stenosis Myocardial infarction Tobacco abuse Aortic ectasia Cervical radiculopathy Anxiety Restless leg syndrome Hyperlipidemia GERD (gastroesophageal reflux disease) Metabolic syndrome PLMD (periodic limb movement disorder) Obstructive sleep apnea Aortic aneurysm Rheumatoid arthritis Diabetes Fatty liver Coronary artery disease Hypertension Surgical History Surgical History Hx of hand surgery History of endometrial ablation History of esophagogastroduodenoscopy (EGD) H/O colonoscopy Hx of heart artery stent History of back surgery Hx of tonsillectomy H/O tubal ligation Hx of cholecystectomy Social History Social History Alcohol intake: never Patient Tobacco Use Status: Current everyday Tobacco user Cigarette Packs Per Day: 0.5 Cigarettes Per Day: 15 Use of substances other than those prescribed or required for medical reasons: No Are you DNR?: No Advance Directives: No Advance Directives Information Provided: Yes Meds Allergies Allergy/AdvReac Type Severity Reaction Status Date / Time azithromycin [From ZITHROMAX] Allergy Intermediate HIVES & Verified 11/07/23 08:23 RASH bupropion [From WELLBUTRIN] Allergy Mild RASH Verified 11/07/23 08:23 venlafaxine [From EFFEXOR] Allergy Mild RASH Verified 11/07/23 08:23 citalopram [Celexa] Allergy Unknown Unknown Verified 11/07/23 08:23 doxycycline [DOXYCYCLINE] AdvReac Mild NAUSEA & Verified 11/07/23 08:23 VOMITING BuPROPion HCl Allergy Unknown Anaphylaxis Uncoded 12/29/20 12:03 Doxycycline Hyclate Allergy Unknown Unknown Uncoded 12/29/20 12:03 Home Medications ?Medication ?Instructions ?Recorded ?Confirmed ?Last Taken ?Type albuterol sulfate 2.5 mg/3 mL 2.5 mg inhalation Q4-6H PRN 12/29/20 11/07/23 Unknown History (0.083 %) solution for nebulization Shortness Of Breath albuterol sulfate 90 mcg/actuation 2 puff inhalation Q4H PRN wheezing 12/29/20 11/07/23 Unknown History aerosol inhaler aspirin 81 mg tablet,delayed 1 tab PO DAILY 12/29/20 11/07/23 10/31/23 History release clopidogrel 75 mg tablet (Plavix) 1 tab PO DAILY 12/29/20 11/07/23 10/31/23 History carvedilol 25 mg tablet (Coreg) 25 mg PO BID 08/30/22 11/07/23 Unknown History empagliflozin 25 mg tablet 25 mg PO DAILY 08/30/22 11/07/23 11/03/23 History (Jardiance) ergocalciferol (vitamin D2) 1,250 1,250 mcg PO QWEEK 08/30/22 11/07/23 Unknown History mcg (50,000 unit) capsule (Vitamin D2) evolocumab 140 mg/mL subcutaneous 140 mg subcut Q2W 08/30/22 11/07/23 Unknown History syringe (Repatha Syringe) ezetimibe 10 mg tablet (Zetia) 10 mg PO DAILY 08/30/22 11/07/23 Unknown History insulin glargine 100 unit/mL (3 85 unit subcut BEDTIME 08/30/22 11/07/23 Unknown History mL) subcutaneous pen (Lantus Solostar U-100 Insulin) lansoprazole 30 mg capsule,delayed 30 mg PO BID 08/30/22 11/07/23 Unknown History release (Prevacid) ondansetron 8 mg disintegrating 8 mg PO Q8H PRN nausea 08/30/22 11/07/23 Unknown History tablet prednisone 5 mg tablet 5 mg PO DAILY 08/30/22 11/07/23 Unknown History pregabalin 300 mg capsule 300 mg PO BEDTIME 08/30/22 11/07/23 Unknown History tizanidine 4 mg tablet 4 mg PO BID 08/30/22 11/07/23 Unknown History etanercept 50 mg/mL (1 mL) 50 mg subcut QWEEK 11/06/23 11/07/23 Unknown History subcutaneous pen injector (Enbrel SureClick) glipizide 10 mg tablet, extended 10 mg PO DAILY 11/06/23 11/07/23 Unknown History release 24 hr (Glucotrol XL) nitroglycerin 0.4 mg sublingual 0.4 mg sublingual Q5M PRN Chest 11/06/23 11/07/23 Unknown History tablet Pain oxycodone 5 mg tablet 5 mg PO BID PRN Pain 11/06/23 11/07/23 Unknown History spironolactone 50 mg tablet 50 mg PO DAILY 11/06/23 11/07/23 Unknown History duloxetine 60 mg capsule,delayed 60 mg PO DAILY 11/07/23 11/07/23 Unknown History release (Cymbalta) olmesartan 40 mg tablet 40 mg PO DAILY 11/07/23 11/07/23 Unknown History ropinirole 0.25 mg tablet 0.25 mg PO BID 11/07/23 11/07/23 Unknown History Assessment and Plan Assessment Anesthesia Assessment: Chart Reviewed Documented by User: Eileen Jensen MD 11/07/23 09:15 [facility] [place] Past Medical History Medical History COPD (chronic obstructive pulmonary disease) Hx LEEP (loop electrosurgical excision procedure), cervix, Neuropathy Lumbar spondylosis Cervical radiculitis Lumbar stenosis Myocardial infarction Tobacco abuse Aortic ectasia Cervical radiculopathy Anxiety Restless leg syndrome Hyperlipidemia GERD (gastroesophageal reflux disease) Metabolic syndrome PLMD (periodic limb movement disorder) Obstructive sleep apnea Aortic aneurysm Rheumatoid arthritis Diabetes Fatty liver Coronary artery disease Hypertension Family History Family history of problems with anesthesia: No Surgical History Surgical History Hx of hand surgery History of endometrial ablation History of esophagogastroduodenoscopy (EGD) H/O colonoscopy Hx of heart artery stent History of back surgery Hx of tonsillectomy H/O tubal ligation Hx of cholecystectomy History of Problems with Anesthesia: Yes Social History Social History Alcohol intake: never Patient Tobacco Use Status: Current everyday Tobacco user Cigarette Packs Per Day: 0.5 Cigarettes Per Day: 15 Use of substances other than those prescribed or required for medical reasons: No Are you DNR?: No Advance Directives: No Advance Directives Information Provided: Yes Meds Allergies Allergy/AdvReac Type Severity Reaction Status Date / Time azithromycin [From ZITHROMAX] Allergy Intermediate HIVES & Verified 11/07/23 08:23 RASH bupropion [From WELLBUTRIN] Allergy Mild RASH Verified 11/07/23 08:23 venlafaxine [From EFFEXOR] Allergy Mild RASH Verified 11/07/23 08:23 citalopram [Celexa] Allergy Unknown Unknown Verified 11/07/23 08:23 doxycycline [DOXYCYCLINE] AdvReac Mild NAUSEA & Verified 11/07/23 08:23 VOMITING BuPROPion HCl Allergy Unknown Anaphylaxis Uncoded 12/29/20 12:03 Doxycycline Hyclate Allergy Unknown Unknown Uncoded 12/29/20 12:03 Home Medications ?Medication ?Instructions ?Recorded ?Confirmed ?Last Taken ?Type albuterol sulfate 2.5 mg/3 mL 2.5 mg inhalation Q4-6H PRN 12/29/20 11/07/23 Unknown History (0.083 %) solution for nebulization Shortness Of Breath albuterol sulfate 90 mcg/actuation 2 puff inhalation Q4H PRN wheezing 12/29/20 11/07/23 Unknown History aerosol inhaler aspirin 81 mg tablet,delayed 1 tab PO DAILY 12/29/20 11/07/23 10/31/23 History release clopidogrel 75 mg tablet (Plavix) 1 tab PO DAILY 12/29/20 11/07/23 10/31/23 History carvedilol 25 mg tablet (Coreg) 25 mg PO BID 08/30/22 11/07/23 Unknown History empagliflozin 25 mg tablet 25 mg PO DAILY 08/30/22 11/07/23 11/03/23 History (Jardiance) ergocalciferol (vitamin D2) 1,250 1,250 mcg PO QWEEK 08/30/22 11/07/23 Unknown History mcg (50,000 unit) capsule (Vitamin D2) evolocumab 140 mg/mL subcutaneous 140 mg subcut Q2W 08/30/22 11/07/23 Unknown History syringe (Repatha Syringe) ezetimibe 10 mg tablet (Zetia) 10 mg PO DAILY 08/30/22 11/07/23 Unknown History insulin glargine 100 unit/mL (3 85 unit subcut BEDTIME 08/30/22 11/07/23 Unknown History mL) subcutaneous pen (Lantus Solostar U-100 Insulin) lansoprazole 30 mg capsule,delayed 30 mg PO BID 08/30/22 11/07/23 Unknown History release (Prevacid) ondansetron 8 mg disintegrating 8 mg PO Q8H PRN nausea 08/30/22 11/07/23 Unknown History tablet prednisone 5 mg tablet 5 mg PO DAILY 08/30/22 11/07/23 Unknown History pregabalin 300 mg capsule 300 mg PO BEDTIME 08/30/22 11/07/23 Unknown History tizanidine 4 mg tablet 4 mg PO BID 08/30/22 11/07/23 Unknown History etanercept 50 mg/mL (1 mL) 50 mg subcut QWEEK 11/06/23 11/07/23 Unknown History subcutaneous pen injector (Enbrel SureClick) glipizide 10 mg tablet, extended 10 mg PO DAILY 11/06/23 11/07/23 Unknown History release 24 hr (Glucotrol XL) nitroglycerin 0.4 mg sublingual 0.4 mg sublingual Q5M PRN Chest 11/06/23 11/07/23 Unknown History tablet Pain oxycodone 5 mg tablet 5 mg PO BID PRN Pain 11/06/23 11/07/23 Unknown History spironolactone 50 mg tablet 50 mg PO DAILY 11/06/23 11/07/23 Unknown History duloxetine 60 mg capsule,delayed 60 mg PO DAILY 11/07/23 11/07/23 Unknown History release (Cymbalta) olmesartan 40 mg tablet 40 mg PO DAILY 11/07/23 11/07/23 Unknown History ropinirole 0.25 mg tablet 0.25 mg PO BID 11/07/23 11/07/23 Unknown History Exam Airway Mallampati Class: II TM Dist: >3cm Neck ROM: Full Heart: rrr Lungs: cta Assessment and Plan Assessment Anesthesia Assessment: Anesthesia Plan Discussed Final Anesthetic Review Family History of Problems with Anesthesia: No History of Problems with Anesthesia: Yes NPO: Yes ASA Class: III Final Preanesthetic Review: No Changes in Pt Med Stat, Meds/Allgs Chart Reviewed, Consent Obtained/Reviewed and Anes Risks/Benef Reviewed Patient Risk: Intermediate Procedure Risk: Low Anesthetic Plan Anesthetic Plan: MAC: Disposition: Standard PACU
[2023-11-07 08:29] VITALS: BMI 33.4
[2023-11-07 08:33] VITALS: BP 137/83; PULSE 65; RESP 16; TEMP 36.7; O2SAT 96
[2023-11-07 08:54] LABS: Glucose, Whole Blood 206 mg/dL (60-115)
[2023-11-07] MEDS: Lactated Ringers 1,000 ML 100 ML IVCONT (08:54)
--- NOTE | 2023-11-07 09:15 | MHC.SHP ---
Pre-Procedural Eval Section A - 24 Hr Update-Section A only Date of Service: 11/07/23 The patient is an INPATIENT: No Changes since office visit: No Cold of Flu in the past 2 weeks, No New Medical Problems, No Changes in Medication and No Patient answered all questions The patient has been examined within 24 hours of the surgical procedure. The History & Physical has been completed within 30 days and I have reviewed it.: Yes Section B - Complete if H&P > 30 days Chief Complaint: Hemorrhage of anus and rectum Allergies: Allergies Allergy/AdvReac Type Severity Reaction Status Date / Time azithromycin [From ZITHROMAX] Allergy Intermediate HIVES & Verified 11/07/23 08:23 RASH bupropion [From WELLBUTRIN] Allergy Mild RASH Verified 11/07/23 08:23 venlafaxine [From EFFEXOR] Allergy Mild RASH Verified 11/07/23 08:23 citalopram [Celexa] Allergy Unknown Unknown Verified 11/07/23 08:23 doxycycline [DOXYCYCLINE] AdvReac Mild NAUSEA & Verified 11/07/23 08:23 VOMITING BuPROPion HCl Allergy Unknown Anaphylaxis Uncoded 12/29/20 12:03 Doxycycline Hyclate Allergy Unknown Unknown Uncoded 12/29/20 12:03 Plan I have reviewed the history and physical and performed a pertinent physical examination on my patient. No changes have occurred unless specified. Time Spent With Patient Time: Total time managing care of this patient today ____ minutes.
[2023-11-07 09:57] VITALS: BP 91/56; PULSE 58; RESP 16; TEMP 36.3; O2SAT 93
[2023-11-07 10:02] VITALS: BP 91/56; PULSE 57; RESP 16; O2SAT 96
[2023-11-07 10:07] VITALS: BP 116/73; PULSE 61; RESP 16; O2SAT 97
[2023-11-07 10:12] VITALS: BP 112/74; PULSE 62; RESP 18; TEMP 36.3; O2SAT 97
--- NOTE | 2023-11-07 10:12 | OP_ITS ---
DATE OF SERVICE: 11/07/2023 SURGEON: Tim Dozier MD INDICATIONS: 1. Nausea. 2. Rectal bleeding. PREOPERATIVE DIAGNOSIS: POSTOPERATIVE DIAGNOSIS: PROCEDURE PERFORMED: Upper endoscopy with biopsy, colonoscopy to the terminal ileum with biopsy. ESTIMATED BLOOD LOSS: COMPLICATIONS: ANESTHESIA: Monitored anesthesia care. ASSISTANTS: SPECIMENS: DESCRIPTION OF PROCEDURE: A history and physical was performed. The risks and benefits of the procedure were explained to the patient and informed consent was obtained. The patient was placed in the left lateral decubitus position. The Olympus video gastroscope was introduced into the esophagus, stomach, and duodenum. Examination was performed and the scope was removed. She was repositioned for colonoscopy. A digital rectal exam was performed and was found to be normal. The Olympus pediatric video colonoscope was introduced into the rectum and advanced to the cecum. The cecum was identified by transillumination, palpation, and identification of ileocecal valve. Examination was performed and the scope was removed. She tolerated both procedures well and was returned to recovery area in stable condition. FINDINGS: Upper endoscopy, esophagus: The esophagus was normal. There was an irregular EG junction. This was biopsied. Stomach: The stomach showed mild erythema consistent with mild gastritis. Biopsies were obtained from the antrum. Duodenum: The bulb and 2nd portion were normal. Colonoscopy: The terminal ileum was examined and appeared normal. This was briefly glimpsed. The visualized colonic mucosa was normal. There was some liquid stool coating the mucosa limiting the sensitivity examination for detection of small polyps. No polyps were identified. The stool was washed and suctioned as best possible. Retroflexed examination showed some internal hemorrhoids. IMPRESSION: 1. Gastritis. 2. Normal colonoscopy. RECOMMENDATIONS: 1. Follow up as needed. 2. Repeat colonoscopy is recommended in 10 years for average-risk individuals. MD LUZ Pepe/SHITAL / [id number]
== END 2023-11-07 10:56 | disposition home or self-care (01) ==
PROVIDERS: PCP Physician Assistant Medical; Visit Provider Internal Medicine Gastroenterology
PROC: (CPT 45380; principal; 2023-11-07 09:50)
DX: K62.5 Hemorrhage of anus and rectum (principal); Z86.010 Personal history of colon polyps; Z80.0 Family history of malignant neoplasm of digestive organs; R11.0 Nausea; K29.70 Gastritis, unspecified, without bleeding; K21.9 Gastro-esophageal reflux disease without esophagitis; K76.0 Fatty (change of) liver, not elsewhere classified; I25.10 Atherosclerotic heart disease of native coronary artery without angina pectoris; Z95.5 Presence of coronary angioplasty implant and graft; I25.2 Old myocardial infarction; I10 Essential (primary) hypertension; E78.00 Pure hypercholesterolemia, unspecified; I71.20 Thoracic aortic aneurysm, without rupture, unspecified; E11.9 Type 2 diabetes mellitus without complications; J44.9 Chronic obstructive pulmonary disease, unspecified; M06.9 Rheumatoid arthritis, unspecified; G47.33 Obstructive sleep apnea (adult) (pediatric); F41.9 Anxiety disorder, unspecified; Z79.82 Long term (current) use of aspirin; Z79.52 Long term (current) use of systemic steroids; Z79.899 Other long term (current) drug therapy; Z79.4 Long term (current) use of insulin; Z79.84 Long term (current) use of oral hypoglycemic drugs; Z98.890 Other specified postprocedural states; F17.210 Nicotine dependence, cigarettes, uncomplicated
CPT/HCPCS: 45380; 43239; 82947; 88305; 88313; 88342; J2704

== ENCOUNTER 2024-09-04 12:48 | Inpatient (IN) | payer OTHER, SELFPAY ==
[2024-09-04] VITALS (15 sets, daily range): BP systolic 110–157; BP diastolic 57–87; PULSE 103–134; RESP 8–24; TEMP 36.5–39.5; O2SAT 92–100; BMI 34.9; BMI 32.8; BMI 34.0
--- NOTE | ~2024-09-04 | CT_ITS ---
CLINICAL HISTORY: [address] head without IV contrast Comparison: None Findings: The ventricles are normal in configuration. Basilar cisterns intact. No intracranial hemorrhage, mass-effect or midline shift. No extra-axial fluid collections. The parenchyma is unremarkable in attenuation. Simon-white matter junction preserved. No evidence of acute large vessel or territorial ischemia. Brainstem and cerebellum unremarkable. The calvarium is intact. The imaged portion of the paranasal sinuses are clear. No mastoid effusions. The orbital contents are unremarkable. Impression: 1. No CT evidence of acute intracranial pathology. MRI may be of further diagnostic value. This document has been electronically signed by: Yevgeniy Guzman MD on 09/05/2024 06:43:52
--- NOTE | ~2024-09-04 | CT_ITS ---
EXAMINATION: CT PELVIS WITH IV CONTRAST HISTORY: left buttock abscess COMPARISON: Comparison is made with the prior examination dated 03/26/2021. TECHNIQUE: CT scan of the pelvis was performed without contrast using standard departmental protocol. Coronal and sagittal reformatted images were generated and reviewed. Oral contrast material was not administered at the request of the referring physician. This CT exam was performed with one or more of the following dose reduction techniques: automated exposure control, adjustment of the mA and/or kV according to patient size, use of iterative reconstruction technique. DLP: 331 mGy-cm FINDINGS: There is extensive gas within the perianal soft tissues, left greater than right. There is moderate associated inflammatory stranding. Minimal fluid is seen. There is no ascites in the pelvis. The urinary bladder and uterus have an unremarkable unenhanced appearance. There is no pelvic lymphadenopathy. The bones are intact. CT/CT pelvis w IV con IMPRESSION: Extensive gas within the perianal soft tissues with associated inflammation and minimal fluid. In the absence of prior intervention, findings are worrisome for necrotizing infection. These findings were discussed with Dr. Mendenhall in the emergency room on 09/04/2024 at 3:02 PM. Electronically signed by: Sav Restrepo MD 09/04/2024 03:05 PM EDT
--- NOTE | ~2024-09-04 | XR_ITS ---
EXAMINATION: XR CHEST CLINICAL INFORMATION: Hypoxia COMPARISON: None available. TECHNIQUE: 2 views of the chest were obtained. FINDINGS: Mild cardiac enlargement. Prominence of the hilar vessels. Mediastinal contours normal. Lungs demonstrate mild changes of interstitial pulmonary edema, with subtle Deya B lines. No focal opacity or consolidation. There is no pneumothorax or pleural effusion. There is no focal osseous or soft tissue abnormality. XR/XR chest 2V IMPRESSION: Mild interstitial edema suspected. No focal pneumonia. Electronically signed by: Misael Rothman MD 09/05/2024 02:09 PM EDT RP
--- NOTE | 2024-09-04 13:31 | ED_ITS ---
HPI - General Adult General Chief complaint: Wound/Laceration Stated complaint: L buttocks wound Time Seen by Provider: 09/04/24 13:05 Source: patient History of Present Illness ED Provider: HPI narrative: 54-year-old female who is a diabetic, presenting with pain over the left buttock only states for the past 1-2 days, but prior to that she felt like she is dehydrated, her sugars have been worse to control, and she did not feel well overall, no chest pain or shortness of breath reported, no vaginal bleeding or discharge no rectal bleeding, has had no obstipation no abdominal pain. Related Data Home Medications ?Medication ?Instructions ?Recorded ?Confirmed albuterol sulfate 2.5 mg/3 mL 2.5 mg inhalation Q4-6H PRN 12/29/20 11/07/23 (0.083 %) solution for nebulization Shortness Of Breath albuterol sulfate 90 mcg/actuation 2 puff inhalation Q4H PRN wheezing 12/29/20 11/07/23 aerosol inhaler aspirin 81 mg tablet,delayed 1 tab PO DAILY 12/29/20 11/07/23 release clopidogrel 75 mg tablet (Plavix) 1 tab PO DAILY 12/29/20 11/07/23 carvedilol 25 mg tablet (Coreg) 25 mg PO BID 08/30/22 11/07/23 empagliflozin 25 mg tablet 25 mg PO DAILY 08/30/22 11/07/23 (Jardiance) ergocalciferol (vitamin D2) 1,250 1,250 mcg PO QWEEK 08/30/22 11/07/23 mcg (50,000 unit) capsule (Vitamin D2) evolocumab 140 mg/mL subcutaneous 140 mg subcut Q2W 08/30/22 11/07/23 syringe (Repatha Syringe) ezetimibe 10 mg tablet (Zetia) 10 mg PO DAILY 08/30/22 11/07/23 insulin glargine 100 unit/mL (3 85 unit subcut BEDTIME 08/30/22 11/07/23 mL) subcutaneous pen (Lantus Solostar U-100 Insulin) lansoprazole 30 mg capsule,delayed 30 mg PO BID 08/30/22 11/07/23 release (Prevacid) ondansetron 8 mg disintegrating 8 mg PO Q8H PRN nausea 08/30/22 11/07/23 tablet prednisone 5 mg tablet 5 mg PO DAILY 08/30/22 11/07/23 pregabalin 300 mg capsule 300 mg PO BEDTIME 08/30/22 11/07/23 tizanidine 4 mg tablet 4 mg PO BID 08/30/22 11/07/23 etanercept 50 mg/mL (1 mL) 50 mg subcut QWEEK 11/06/23 11/07/23 subcutaneous pen injector (Enbrel SureClick) glipizide 10 mg tablet, extended 10 mg PO DAILY 11/06/23 11/07/23 release 24 hr (Glucotrol XL) nitroglycerin 0.4 mg sublingual 0.4 mg sublingual Q5M PRN Chest 11/06/23 11/07/23 tablet Pain oxycodone 5 mg tablet 5 mg PO BID PRN Pain 11/06/23 11/07/23 spironolactone 50 mg tablet 50 mg PO DAILY 11/06/23 11/07/23 duloxetine 60 mg capsule,delayed 60 mg PO DAILY 11/07/23 11/07/23 release (Cymbalta) olmesartan 40 mg tablet 40 mg PO DAILY 11/07/23 11/07/23 ropinirole 0.25 mg tablet 0.25 mg PO BID 11/07/23 11/07/23 Allergies Allergy/AdvReac Type Severity Reaction Status Date / Time azithromycin [From ZITHROMAX] Allergy Intermediate HIVES & Verified 09/04/24 13:01 RASH bupropion [From WELLBUTRIN] Allergy Mild RASH Verified 11/07/23 08:23 venlafaxine [From EFFEXOR] Allergy Mild RASH Verified 11/07/23 08:23 citalopram [Celexa] Allergy Unknown Unknown Verified 11/07/23 08:23 doxycycline [DOXYCYCLINE] AdvReac Mild NAUSEA & Verified 11/07/23 08:23 VOMITING BuPROPion HCl Allergy Unknown Anaphylaxis Uncoded 12/29/20 12:03 Doxycycline Hyclate Allergy Unknown Unknown Uncoded 12/29/20 12:03 Review of Systems 2 Review of Systems: Yes all other systems are reviewed and are negative PMFSH Past Medical History Medical History COPD (chronic obstructive pulmonary disease) Hx LEEP (loop electrosurgical excision procedure), cervix, Neuropathy Lumbar spondylosis Cervical radiculitis Lumbar stenosis Myocardial infarction Tobacco abuse Aortic ectasia Cervical radiculopathy Anxiety Restless leg syndrome Hyperlipidemia GERD (gastroesophageal reflux disease) Metabolic syndrome PLMD (periodic limb movement disorder) Obstructive sleep apnea Aortic aneurysm Rheumatoid arthritis Diabetes Fatty liver Coronary artery disease Hypertension Surgical History Hx of hand surgery History of endometrial ablation History of esophagogastroduodenoscopy (EGD) H/O colonoscopy Hx of heart artery stent History of back surgery Hx of tonsillectomy H/O tubal ligation Hx of cholecystectomy Social History Social History Alcohol intake: never Patient Tobacco Use Status: Current everyday Tobacco user Cigarette Packs Per Day: 0.5 Cigarettes Per Day: 15 Smoked in Last 30 Days: Yes Use of substances other than those prescribed or required for medical reasons: No Advance Directives: No Advance Directives Information Provided: Yes Patient : No Physical Exam ED Vital Signs: Vital Signs - 24 hr 09/04/24 12:59 Temperature 98.8 F Pulse Rate 110 H Respiratory Rate 18 Blood Pressure 115/57 L Pulse Oximetry 93 Oxygen Delivery Method Room Air BMI result Body Mass Index 34.9 Const Other: * Gen: ?Overall well-appearing patient * HEENT: PERRLA, EOMI, MMM, * Neck: Supple, no LAD * CV: RRR, no obvious murmurs appreciated * Resp: ?No wheezing rales rhonchi no stridor moving air well * Abd: ?Bowel sounds are present, no tenderness no rebound no rigidity * Rectal: Patient with edematous left buttock with an area of prior drainage, with some fullness edging to the anal verge without any obvious bleeding or involvement of the perianal my muscles, there is external hemorrhoids, no labial involvement, no perianal involvement, I did not appreciate crepitus * Neuro: ?Alert and oriented x3, moving upper and lower extremities symmetrically, no obvious facial asymmetry noted Medications Administered Generic Name Dose Route Start Last Admin Trade Name Freq PRN Reason Stop Dose Admin Lactated Ringer's 1,000 mls @ 0 mls/hr 09/04/24 13:45 09/04/24 14:38 Lr IV Infused .Q0M ESTHELA Infusion Wide Open Lactated Ringer's 2,856 mls @ 2,856 mls/hr 09/04/24 15:04 09/04/24 15:19 Lr 30 ml/kg infuse over 1 hr (2856 ml) 09/04/24 16:03 2,856 mls/hr IV Administration .Q1H ONE Discontinued Medications Generic Name Dose Route Start Last Admin Trade Name Vania PRN Reason Stop Dose Admin Acetaminophen 975 mg 09/04/24 13:33 09/04/24 13:45 Acetaminophen 325 Mg Tablet PO 09/04/24 13:34 975 mg ONCE ONE Administration Piperacillin Sod/Tazobactam 50 mls @ 100 mls/hr 09/04/24 15:04 09/04/24 15:20 Sod 3.375 gm/ Sodium Chloride IV 09/04/24 15:33 100 mls/hr ONCE ONE Administration Insulin Human Lispro 10 unit 09/04/24 13:37 09/04/24 14:05 Insulin Lispro 100 Unit/Ml 3 Ml Vial SUBCUT 09/04/24 13:38 10 unit ONCE ONE Administration Iohexol 100 ml 09/04/24 14:44 09/04/24 14:45 Iohexol 350 Mg/Ml 100 Ml Infus..Btl IV 09/04/24 14:45 85 ml ONCE ONE Administration Medical Decision Making Medical Decision Making [facility] Narrative: Patient is a diabetic presenting with either buttock abscess imaging will be obtained to evaluate for perirectal abscess, we will obtain all the appropriate workup, if there is any evidence for systemic infection which at least at this point I do not suspect because she is nonfebrile, vital signs stable, and there is no surrounding erythema the fluctuant area of the buttock 15:14 Extensive gas within the perianal soft tissues with associated inflammation and minimal fluid. In the absence of prior intervention, findings are worrisome for necrotizing infection. Wishes quite surprising finding on the CT, continues to do well clinically, nonfebrile, blood pressure is stable, slightly tachy, receiving septic fluid bolus, broad-spectrum antibiotic coverage including clindamycin, I am sending a consult to our surgical PA but I suspect she may need to be transferred to [facility] for surgical debridement if that is their assessment of this, patient has been updated as well.. She did not meet severe sepsis criteria because there is no organ dysfunction but based on a CAT scan who presents of gas in the soft tissue was getting aggressive management and surgical involvement. 15:30 patient is going to the OR Differential Diagnosis Perianal abscess, perirectal abscess, Linsey's gangrene, Admission/Observation Consideration of admission/observation: Escalation of care including admission/observation considered Depending on the extent of abscess whether it is perirectal abscess, and the depth may need to be admitted, may need surgical involvement Consult Healthcare Provider Management of the patient was discussed with: Computer Engineering Professor (Nubia Tan) Lab Data 09/04/24 13:39 09/04/24 14:02 Labs: Lab Results 09/04/24 09/04/24 09/04/24 Range/Units 13:39 13:48 14:00 WBC 15.9 H (4.8-10.8) X10*3/uL RBC 5.03 (4.20-5.50) X10*6/uL Hgb 15.2 (12.0-16.0) g/dl Hct 44.5 (37.0-47.0) % MCV 88.5 (80.0-98.0) fL MCH 30.2 (27.0-33.0) pg MCHC 34.2 (31.0-35.0) g/dl RDW 13.2 (11.0-16.0) % Plt Count 165 D (160-400) X10*3/uL MPV 9.7 (9.4-12.3) fL Immature Gran % (Auto) 0.6 H (0.0-0.4) % Neut % (Auto) 79.6 H (45-73) % Lymph % (Auto) 12.6 L (20-40) % [place]ifax % (Auto) 6.3 (2-11) % Eos % (Auto) 0.3 (0-4) % Baso % (Auto) 0.6 (0-2) % Lymph # (Auto) 2.0 (1.2-4.9) X10*3/uL [place]ifax # (Auto) 1.0 (0.1-1.2) X10*3/uL Eos # (Auto) 0.0 (0.0-0.4) X10*3/uL Baso # (Auto) 0.1 (0.0-0.2) X10*3/uL Abs Immat Gran (auto) 0.10 H (0.00-0.03) X10*3/uL Absolute Neuts (auto) 12.7 H (2.0-8.3) x10*3/uL Absolute Nucleated RBC 0.000 (0.0-0.012) X10*3/uL Nucleated RBC % (auto) 0.0 (0.0-0.2) /100WBC Sodium (135-145) mmol/L Potassium (3.3-5.1) mmol/L Chloride (96-108) mmol/L Carbon Dioxide (22-29) mmol/L Anion Gap (12-20) BUN (9-16) mg/dL Creatinine (0.5-1.4) mg/dL Estim Creat Clear Calc Estimated GFR POC Glucose 395 H* (60-115) mg/dL Random Glucose (60-115) mg/dL Lactic Acid 1.3 (0.5-2.0) mmol/L Calcium (8.4-10.2) mg/dL 09/04/24 09/04/24 Range/Units 14:02 14:55 WBC (4.8-10.8) X10*3/uL RBC (4.20-5.50) X10*6/uL Hgb (12.0-16.0) g/dl Hct (37.0-47.0) % MCV (80.0-98.0) fL MCH (27.0-33.0) pg MCHC (31.0-35.0) g/dl RDW (11.0-16.0) % Plt Count (160-400) X10*3/uL MPV (9.4-12.3) fL Immature Gran % (Auto) (0.0-0.4) % Neut % (Auto) (45-73) % Lymph % (Auto) (20-40) % Halifax % (Auto) (2-11) % Eos % (Auto) (0-4) % Baso % (Auto) (0-2) % Lymph # (Auto) (1.2-4.9) X10*3/uL Halifax # (Auto) (0.1-1.2) X10*3/uL Eos # (Auto) (0.0-0.4) X10*3/uL Baso # (Auto) (0.0-0.2) X10*3/uL Abs Immat Gran (auto) (0.00-0.03) X10*3/uL Absolute Neuts (auto) (2.0-8.3) x10*3/uL Absolute Nucleated RBC (0.0-0.012) X10*3/uL Nucleated RBC % (auto) (0.0-0.2) /100WBC Sodium 136 (135-145) mmol/L Potassium 4.1 (3.3-5.1) mmol/L Chloride 102 (96-108) mmol/L Carbon Dioxide 25 (22-29) mmol/L Anion Gap 13 (12-20) BUN 12 (9-16) mg/dL Creatinine 0.59 (0.5-1.4) mg/dL Estim Creat Clear Calc 125.8 Estimated GFR > 60 POC Glucose 324 H (60-115) mg/dL Random Glucose 386 H* (60-115) mg/dL Lactic Acid (0.5-2.0) mmol/L Calcium 8.6 D (8.4-10.2) mg/dL Critical Care Time Critical Care Time Critical Care Time: Yes Total Critical Care Time: 60 Attestation: Time is exclusive of separately billable procedures. Time includes: direct patient care, patient reassessment, coordination of patient care, interpretation of data (laboratory data, pulse oximetry, arterial blood gases and chest xrays), review of patient's medical records, medical consultation and documentation of patient care. Procedures excluded from critical care time: central intravenous line placement and electrocardiography. Discharge Plan Discharge Clinical Impression: Abscess of deep perineal space, Necrotizing cellulitis Patient Disposition: Admitted As Inpatient Print Language: Belizean
[2024-09-04] MEDS: Lactated Ringers 1,000 ML 999 ML IV (13:42)
[2024-09-04 13:44] LABS: Basophils Absolute Auto 0.1 X10*3/uL (0.0-0.2); Basophils Percent Auto 0.6 % (0-2); Eosinophils Percent Auto 0.3 % (0-4); Hematocrit 44.5 % (37.0-47.0); Hemoglobin 15.2 g/dl (12.0-16.0); Imm Gran Pct Auto 0.6 % (0.0-0.4); Lymphocytes Percent Auto 12.6 % (20-40); MANUAL DIFF FLAG NO; Mean Corpuscular HGB Conc 34.2 g/dl (31.0-35.0); Mean Corpuscular Hemoglobin 30.2 pg (27.0-33.0); Mean Corpuscular Volume 88.5 fL (80.0-98.0); Mean Platelet Volume 9.7 fL (9.4-12.3); Monocytes Percent Auto 6.3 % (2-11); Neutrophils Absolute Auto 12.7 x10*3/uL (2.0-8.3); Neutrophils Percent Auto 79.6 % (45-73); Platelet Count 165 X10*3/uL (160-400); Red Blood Count 5.03 X10*6/uL (4.20-5.50); Red Cell Distribution Width 13.2 % (11.0-16.0); White Blood Count 15.9 X10*3/uL (4.8-10.8)
--- OUTSIDE RECORDS SUMMARY | 2024-09-04 13:44 | XMS_ITS | Patient Health Record ---
Author Organization [facility] Address [address] [place] [address] Care Team Providers Care Corporate Giving Manager Name Role Phone TRISTEN CLIFFORD PA-C Primary Care Provider Un available Tim Dozier Jr Unavailable Allergies Allergen (clinical drug ingredient) Drug/Non Drug Allergy documented on EMR Reaction Allergy Type Onset Date Status Wellbutrin Unknown Drug Allergy Active Effexor Unknown Drug Allergy Active Doxycycline Calcium Unknown Drug Allergy Active Bupropion & Diet Manage Prod Unknown Drug Allergy Active azithromycin Zithromax Unknown Drug Allergy Acti ve Results Component Value Reference Range Notes Glucose, Whole Blood Reviewed date:11/07/2023 02:48:12 PM Interpretation: Performing Lab:[facility], [address] [place] [id number] Notes/Report: Glucose, Whole Blood 206 60-115 mg/dL METER # : [id number] Pathology Reviewed date:11/13/2023 08:16:16 AM Interpretation: Performing Lab:[facility], [address] [place] [phone] Notes/Report: ----- Name: Helen Luong Age/Sex: 53/F [facility] 1970 [id number]#: [id number] Attend Dr: Tim Dozier MD Re11/07/23 Status : [facility] Location: [facility] Disch: ----- SPEC : [id number] RECD : 11/07/23-1011 STATUS: NARESH MORELAND NUM: [id number] KEISHA: 11/07/23-34 [facility] DR: Tim Dozier MD ENTERED: 11/07/23-02 04 SP TYPE: Surgical OTHR DR: Tristen Clifford PA ORDERED: HE Stain/6, Gross Micro L4/3, IHC, H. pylori Diagnosis A. Stomach, antrum, biopsy: Antral-type mucosa within normal limits; no Helicobacter organisms seen. B. EG junction, biopsy: - Cardiofundic-type mucosa with moderate chronic inactive inflammation; no intestinal metaplasia seen. - Squamous mucosa wi thin normal limits. C. Colon, sigmoid, biopsy: - Colonic mucosa wit h mild lamina propria congestion and mild crypt regenerative changes; otherwise w ithin normal limits. - Squamous epitheliu m within normal limits. Comment: The squamou s epithelium in part C is likely a contaminant. Clinical History Pre-Op Dx: Hemorrhag e of anus and rectum Post-Op Dx: Gastriti s, normal colonoscopy Microscopic Description A-C. Microscopic sec tions examined. No metaplastic changes are seen, supported by AB/PAS stains (A and B); no Helicobacter organisms are seen, supported by H. pylori immunostain (A). Material Received A. Antrum bx's B. EG junction bx's C. Sigmoid bx's Gross Description Received in three parts. Part A: Received in formalin labeled ?antrum bx's? are 2 hadley-pink rectangular tissue fragments each measu ring 0.4 cm, submitted in toto in a cassette labeled A. Part B: Received in formalin labeled ?EG junction bx's? are 4 hadley-pink irregular tissue fragments each measu ring 0.25 cm, submitted in toto in a cassette labeled B. CONTINUED ON NEXT PAGE ----- Name: Helen Luong Age/Sex: 53/F : 1970 Unit#: [id number] Attend Dr: Tim Dozier MD Re11/07/23 Status : [facility] Location: [facility] Disch: ----- SPEC : [id number] RECD : 11/07/232 STATUS: NARESH PIERCESilvia NUM: [id number] KEISHA: 11/07/2334 [facility] DR: Tim Dozier MD ENTERED: 11/07/23 SP TYPE: Surgical OTHR DR: Tristen Clifford ORDERED: HE Stain/6, Gross Micro L4/3, IHC, H. pylori Gross Description (Continued) Part C: Received in formalin labeled ?sigmoid bx's? are 2 hadley-pink irregular tissue fragments each measu ring 0.25 cm, submitted in toto in a cassette labeled C. CEDS Special studies orde red and performed: Immunostain for H. pylori on A; AB/PAS stains on A and B Copies To: Tim Dozier MD [address] [place], [place] [id number] Tristen Clifford [address] [place] [address] ----- Signed (signature on file) Bolivar Dawkins MD 11/10/23 1006 ----- END OF REPORT Reason For Referral No Information Medications Medication SIG (Take, Route, Frequency, Duration) Notes Start Date End Date Status Jardiance 25 MG Oral for 28 Ac tive oxyCODONE HCl 5 MG TAKE 1 TABLET BY MOUTH EVERY 12 HOURS NEEDED FOR PAIN Oral for 28 Z23,Unavailabl e Active Lansoprazole 30 MG Oral for 28 Active Ezetimibe 10 MG Oral for 28 Ac tive Spironolactone 25 MG TAKE 1 TABLET BY MOUTH DAILY Oral for 90 Active Plavix 75 MG 1 tablet Orally Once a day for 30 day(s) Active tiZANidine HCl 4 MG 1 tablet as needed Orally Three times a day Active Tylenol 500 1 tab Oral as needed Active Aspirin 81 81 MG 1 tablet Orally Once a day Active Nitroglycerin 0.4 MG as directed Sublingual prn Active Vitamin D 50 MCG (1999 UT) 1 tablet Orally Once a day Active Repatha Active Zofran 8 MG 1 tablet Orally Once a day prn Active flovent HFA Active Enbrel 25 MG/0.5ML 0.5 ml Subcutaneous for 30 day(s) Active Advair Diskus 250-50 MCG/DOSE 1 puff Inhalation Twice a day Active glipiZIDE Active predniSONE 5 MG 1 tablet Orally Once a day Active Lantus SoloStar Acti ve Lyrica 150 MG 1 capsule Orally onc e a day Active Nebulizer Active Carvedilol Active BD Pen Needle Alissa 2nd Gen Active Immunizations Vaccine Route Administration Date Status Comme nts Influenza Unknown 12/17/2015 Administered Influenza Unknown 12/16/2017 Administered Influenza Unknown 12/16/2018 Administered Influenza Unknown 02/26/2020 Administered Influenza Unknown 10/10/2019 Refused Social History Tobacco Use: Social History Observation Description Date Details (start date - stop date) Current Smoker NA - NA Tobacco Use/Smoking Question Answer Notes Patient is a current smoker How often do you smoke cigarettes? every day How many cigarettes a day do you smoke? 6-10 How soon after you wake up do you smoke your fir st cigarette? 6-30 minutes Are you interested in quitting? Ready to quit Alcohol Screen Question Answer Notes Did you have a drink containing alcohol in the p ast year? No Points 0 Interpretation Negative Problems Problem Type SNOMED Code ICD Code Onset Dates Problem Status W/U Status Risk Notes Problem 889123999 Colon cancer screening (Z12.11) Active confirmed Problem 37148375 Rectal bleeding (K62.5) Active confirmed Problem 995250266 Nausea (R11.0) Active confirmed Problem 41141555 Abdominal pain, epigastric (R10.13) Active confirmed Problem 855902538 Elevated LFTs (R79.89) Active confirmed Problem 568305379 Gastroesophageal reflux disease without esophagitis (K21.9) Active confirmed Problem 103023201 Fatty liver (K76.0) Active confirmed Vital Signs Blood pressure diastolic 00 mm Hg 10/12/2023 Height 66 in 10/12/2023 Blood pressure systolic 00 mm Hg 10/12/2023 Weight 209 lbs 10/12/2023 BMI 33.73 kg/m2 10/12/2023 Encounters Encounter Location Date Provider Diagnosis [facility] [address] [place], [place] [phone] 11/07/2023 Tim Dozier Jr Rectal bleeding K62.5 and Nausea R11.0 [facility] [address] [place] [phone] 10/12/2023 Tim Dozier Jr Nausea R11.0 ; Rectal bleeding K62.5 and Fatty liver K76.0 [facility] [address] [place] [address] 11/13/2023 Tim Dozier Jr Assessments Encounter Date Diagnosis (ICD Code) Assessment Notes Treatment Notes Treatment Clinical Notes Section Notes 11/07/2023 Rectal bleeding (ICD-10 - K62.5) 11/07/2023 Nausea (ICD-10 - R11.0) 10/12/2023 Rectal bleeding (ICD-10 - K62.5) We discussed her symptoms in detail today. She had recent lab work done through her primary care providers office in this will be reviewed. Ultrasound imaging will be scheduled for further evaluation of her nausea and fatty liver. She will undergo upper endoscopy and colonoscopy for further evaluation of her nausea and rectal bleeding. She is aware of risks and benefits of both procedures. She understands these and agrees to proceed. She will use half of her long-acting insulin the night before the prep and the night before the procedure. She will stop glipizide and spironolactone the day before the procedure she will stop aspirin and Plavix one week before the procedure and Jardiance 3 days before the procedure 10/12/2023 Nausea (ICD-10 - R11.0) We discussed her symptoms in detail today. She had recent lab work done through her primary care providers office in this will be reviewed. Ultrasound imaging will be scheduled for further evaluation of her nausea and fatty liver. She will undergo upper endoscopy and colonoscopy for further evaluation of her nausea and rectal bleeding. She is aware of risks and benefits of both procedures. She understands these and agrees to proceed. She will use half of her long-acting insulin the night before the prep and the night before the procedure. She will stop glipizide and spironolactone the day before the procedure she will stop aspirin and Plavix one week before the procedure and Jardiance 3 days before the procedure 10/12/2023 Fatty liver (ICD-10 - K76.0) We discussed her symptoms in detail today. She had recent lab work done through her primary care providers office in this will be reviewed. Ultrasound imaging will be scheduled for further evaluation of her nausea and fatty liver. She will undergo upper endoscopy and colonoscopy for further evaluation of her nausea and rectal bleeding. She is aware of risks and benefits of both procedures. She understands these and agrees to proceed. She will use half of her long-acting insulin the night before the prep and the night before the procedure. She will stop glipizide and spironolactone the day before the procedure she will stop aspirin and Plavix one week before the procedure and Jardiance 3 days before the procedure Plan Of Treatment Pending Test Test Name Order Date XR GI SERIES 04/02/2014 US ABD 10/12/2023 Future Test Test Name Order Date UPPER GI ENDOSCOPY 02/25/2016 UPPER GI ENDOSCOPY 10/12/2023 COLONOSCOPY 10/12/2023 Next Appt Details Provider Name:Tim Curtis tello , 11/04/2024 09:20:00 AM, [address] [place] [address], [address], [place], [address], Insurance Providers Payer Name Payer Address Payer Phone Subscriber Number Group Number Insured Name Patient Relationship to Insured Coverage Start Date Coverage End Date [facility] [address] [place] [address] [id number] RAFAELA LUONG Self - patient is the insured Medical (General) History Medical History History ICD Code esophageal reflux, EGD , no esophagitis, Gaines's, or H. pylori. Currently using OTC antacids and diet for treatment hypertension anxiety degenerative joint disease spinal stenosis elevated cholesterol thoracic aortic aneurysm Coronary artery disease with history of [place] 04/03, PCI with stent placement asthma/copd urinary incontinence rheumatoid arthritis sleep apnea not using CPAP currently diabetes colonoscopy 09/06/19, 2 tubular adenomas, five-year followup Surgical History Surgery Date(Month/Year) tonsillectomy cholecystectomy back surgery/laminectomy Nerve stimulator implant and removal LEEP hand surgery endometrial ablation tubal ligation cyst removal Hospitalization History Reason Date(Month/Year) chest pain 05/2019
--- OUTSIDE RECORDS SUMMARY | 2024-09-04 13:44 | XMS_ITS ---
Author Organization [facility] Address [address] [facility] [address] [place] [id number] Care Team Providers Care Core Laying Machine Operator Name Role Phone JUSTO CLIFFORD PA-C Primary Care Provider Un available Tim Dozier Jr [phone] REASON FOR VISIT nausea,rectal bleeding Encounters Encounter Location Date Provider Diagnosis [facility] [address] [place] [address] [phone] 11/07/2023 Tim Dozier Jr Rectal bleeding K62.5 and Nausea R11.0 Assessments Encounter Date Diagnosis (ICD Code) Assessment Notes Treatment Notes Treatment Clinical Notes Section Notes 11/07/2023 Rectal bleeding (ICD-10 - K62.5) 11/07/2023 Nausea (ICD-10 - R11.0) Plan Of Treatment Next Appt Details Provider Name:Tim tello Jr, 11/04/2024 09:20:00 AM, [address] [place] [address], [address], [place], [address], Progress Notes * RAFAELA WRIGHT ADOB:1970 (54 yo F)Acc No.[id number]:11/07/2023 EGD and COL/MAC Patient:?RAFAELA WRIGHT Provider:?Tim Dozier MD :1970???Age:53 Y???Sex:Female D ate:11/07/2023 Address:[address] [place], [place] [phone] Pcp:JUSTO CLIFFORD PA-C Subjective: * Chief Complaints: * ???1. Nausea,rectal bleeding . * Medical History:? Objective: * Vitals:? Assessment: * Assessment: 1.?Rectal bleeding - K62.5 ( Primary)???2.?Nausea - R11.0??? Plan: * Treatment: * Procedure Codes:?02401 COLON OSCOPY AND BIOPSY, 10270 UPPER GI ENDOSCOPY, BIOPSY * * The named appointment provid er may or may not be the originator of this progress note, and it is not deemed complete until electronically signed by the appointment provider. Sign off status: Pending * Provider:?Tim Dozier MD Date:?0 11/07/2023 Generated for Loretta valentino/Iwona/Dee on:?09/04/2024 01:44 PM EDT
[2024-09-04] MEDS: Acetaminophen 325 MG TABLET 975 MG PO (13:45)
--- OUTSIDE RECORDS SUMMARY | 2024-09-04 13:45 | XMS_ITS ---
Author Organization [facility] Address [address] [place] [address] Care Team Providers Care Market Relationship Manager Name Role Phone JUSTO CLIFFORD PA-C Primary Care Provider Un available Tim Dozier Jr REASON FOR VISIT Patient presents today for constantly nausea, stool changes Encounters Encounter Location Date Provider Diagnosis [facility] [address] [facility] [address] [place] [address] 10/16/2023 Tim Dozier Jr Plan Of Treatment Next Appt Details Provider Name:Tim tello Jr, 11/04/2024 09:20:00 AM, [address] [facility], [address], [place], [address], Progress Notes * RAFAELA WRIGHT ADOB:1970 (54 yo F)Acc No.[id number]:10/16/2023 Progress Notes Patient:?ARMOND RAFAELA Smith Provider:?Tim Dozier MD :1970???Age:53 Y???Sex:Female D ate:10/16/2023 Address:[address] [place] [address] Pcp:JUSTO CLIFFORD PA-C Subjective: * Chief Complaints: * ???1. Patient presents today for constantly nausea, stool changes. * Medical History:? Objective: * Vitals:? Assessment: Plan: * Treatment: * * The named appointment provid er may or may not be the originator of this progress note, and it is not deemed complete until electronically signed by the appointment provider. Sign off status: Pending * Provider:?Tim Dozier MD Date:?0 10/16/2023 Generated for Loretta valentino/Iwona/Dee on:?09/04/2024 01:44 PM EDT
--- OUTSIDE RECORDS SUMMARY | 2024-09-04 13:45 | XMS_ITS | Clinical Summary ---
Author Organization [facility] Address [address] [place] [phone] Phone Care Team Providers Care Senior Software Developer Name Role Phone Tristen Chaves Primary Care Provider [phone] Allergies Active Allergy Reactions Criticality Noted Date Comments Azithromycin Headache 02/21/2007 Bupropion Hcl 02/21/2007 Other Reaction(s): Rash/Dermatitis Citalopram Hydrobromide GI intolerance,Other Medium dizziness Doxy Nausea And Vomiting 12/19/2010 Dulaglutide Diarrhea High 03/02/2020 Semaglutide Diarrhea High 03/02/2020 Venlafaxine 06/25/2019 Medications incontinence pad, liner, disp pad 3 Each by Does not apply route daily. WALDEMAR 99 3/day 90/mos with 11 refills 06/22/19 24 Active amLODIPine (NORVASC) 10 mg tablet Take 1 Tablet by mouth daily. 12/29/19 24 Active clotrimazole (LOTRIMIN) 1 % cream APPLY THIN LAYER TOPICALLY TO THE AFFECTED AREA TWICE DAILY NEEDED 01/09/20 24 Active fluticasone-salme terol (ADVAIR DISKUS) 250-50 mcg/dose diskus inhaler INHALE 1 PUFF(S) INTO THE LUNGS EVERY 12 HOURS (RINSE MOUTH WITH WATER AFTER USE) 07/10/19 21 Active naratriptan (AMERGE) 2.5 mg tablet Take 1 Tablet by mouth as needed for Migraine. 2.5 mg at onset of headache, may repeat in 4 hours if needed 02/12/20 Active nitroglycerin (NITROSTAT) 0.[address] 1 Tab under the tongue every 5 minutes as needed for Chest pain. 08/01/19 Active nortriptyline (PAMELOR) 10 mg capsule Take 1 Capsule by mouth at bedtime for 360 days. 02/12/202024 Active olmesartan (BENICAR) 40 mg tablet Take 1 Tablet by mouth daily for 360 days. 01/30/202024 Active spironolactone (ALDACTONE) 50 mg tablet Take 1 Tablet by mouth daily. 06/21/19 Active meclizine (ANTIVERT) 25 mg tablet Take 1 tablet (25 mg total) by mouth 3 (three) times a day if needed for dizziness. 90 tablet 04/05/20 24 2024 Active evolocumab (Repatha Syringe) 140 mg/mL syringe INJECT 1 ML UNDER THE SKIN EVERY 14 DAYS (BULK) 2 mL 04/18/19 25 Active carvediloL (COREG) 25 mg tablet TAKE ONE TABLET BY MOUTH TWICE A DAY ^1R1,1R4 60 tablet 05/15/19 25 Active clopidogreL (PLAVIX) 75 mg tablet TAKE ONE TABLET BY MOUTH EVERY DAY ^1R1 30 tablet 05/15/19 25 Active ezetimibe (ZETIA) 10 mg tablet TAKE ONE TABLET BY MOUTH EVERY DAY ^1R1 30 tablet 05/16/19 25 Active Jardiance 25 mg tablet TAKE ONE TABLET BY MOUTH EVERY DAY ^1R1 30 tablet 05/15/19 25 Active lansoprazole (PREVACID) [address] capsule TAKE ONE CAPSULE BY MOUTH TWICE A DAY ^1R1,1R4 60 capsule 05/15/19 25 Active aspirin 81 mg EC tablet TAKE ONE TABLET BY MOUTH EVERY DAY ^1R1 30 tablet 05/15/19 25 Active rOPINIRole (REQUIP) 1 mg tabletIndications :restless leg syndrome Take 1 tablet (1 mg total) by mouth at bedtime. 30 each 05/20/19 25 Active rOPINIRole (REQUIP) 0.25 mg tablet TAKE TWO TABLETS BY MOUTH AT BEDTIME ^2R4 60 tablet 07/06/19 25 Active glipiZIDE (GLUCOTROL XL) 10 mg 24 hr tablet TAKE ONE TABLET BY MOUTH EVERY DAY ^1R1 30 tablet 5 07/06/19 25 Active ondansetron ODT (ZOFRAN-ODT) 8 mg disintegrating tablet Take 1 tablet (8 mg total) by mouth every 8 (eight) hours if needed for nausea or vomiting. for nausea 30 tablet 11 07/11/19 25 Active semaglutide (OZEMPIC) 0.25 mg or 0.5 mg (2 mg/3 mL) injection penIndications:Ac nathaniel pain of right shoulder,Anxiety, Aneurysm of ascending aorta without rupture ([facility] V24),Type 2 diabetes mellitus with diabetic microalbuminuria, without long-term current use of insulin ([facility] V24, [facility] V28),Secondary hypertension,Hype rtriglyceridemia, Gastroesophageal reflux disease without esophagitis,Obstr uctive sleep apnea,Type 2 diabetes mellitus with diabetic polyneuropathy, with long-term current use of insulin ([facility] V24, [facility] V28),Vitamin D deficiency,Rheuma toid arthritis, involving unspecified site, unspecified whether rheumatoid factor present ([facility] V24, [facility] V28) Inject 0.25 mg under the skin every 7 (seven) days. 6 mL 3 07/11/19 25 Active LORazepam (ATIVAN) 0.5 mg tablet Take 1 tablet (0.5 mg total) by mouth 2 (two) times a day if needed for anxiety. Max Daily Amount: 1 mg 56 tablet 07/19/19 25 Active cholecalciferol (VITAMIN D-3) 25 mcg (1,000 unit) tablet TAKE ONE TABLET BY MOUTH EVERY DAY ^1R1 30 tablet 11 08/01/19 25 Active pregabalin (LYRICA) 300 mg capsule TAKE ONE CAPSULE BY MOUTH EVERY EVENING ^1R4 30 capsule 4 08/01/19 25 Active DULoxetine (CYMBALTA) [address] capsule TAKE ONE CAPSULE BY MOUTH EVERY DAY ^1R4 31 capsule 9 08/01/19 25 Active insulin glargine (Lantus Solostar U-100 Insulin) 100 unit/mL (3 mL) injection pen INJECT 85 UNIT(S) UNDER THE SKIN AT BEDTIME (BULK) 15 mL 2 08/21/19 25 Active tiZANidine (ZANAFLEX) 4 mg tablet TAKE ONE TABLET BY MOUTH TWICE A DAY NEEDED FOR MUSCLE SPASMS (TRAYS) ^1R1,1R4 60 tablet 1 08/27/19 25 Active zolpidem (AMBIEN) 5 mg tablet Take 1 tablet (5 mg total) by mouth at bedtime as needed for sleep. for insomnia Max Daily Amount: 5 mg 30 tablet 09/04/19 25 Active oxyCODONE (ROXICODONE) 5 mg immediate release tabletIndications :Lumbar stenosis with neurogenic claudication Take 1 tablet (5 mg total) by mouth 2 (two) times a day. Max Daily Amount: 10 mg 56 tablet 09/05/19 25 Active tiZANidine (ZANAFLEX) 4 mg tablet TAKE ONE TABLET BY MOUTH TWICE A DAY NEEDED FOR MUSCLE SPASMS ^1R1,1R4 60 tablet 1 07/06/19 25 2024 Discontinued oxyCODONE (ROXICODONE) 5 mg immediate release tabletIndications :Lumbar stenosis with neurogenic claudication Take 1 tablet (5 mg total) by mouth 2 (two) times a day. Max Daily Amount: 10 mg 56 tablet 07/10/19 25 2024 Discontinued(R eorder) Lantus Solostar U-100 Insulin 100 unit/mL (3 mL) injection pen INJECT 85 UNITS UNDER THE SKIN AT BEDTIME (BULK) 15 mL 2 07/26/19 25 2024 Discontinued zolpidem (AMBIEN) 5 mg tablet Take 1 tablet (5 mg total) by mouth at bedtime as needed for sleep. for insomnia Max Daily Amount: 5 mg 30 tablet 08/06/19 25 2024 Discontinued(R eorder) oxyCODONE (ROXICODONE) 5 mg immediate release tabletIndications :Lumbar stenosis with neurogenic claudication Take 1 tablet (5 mg total) by mouth 2 (two) times a day. Max Daily Amount: 10 mg 56 tablet 08/08/19 25 2024 Discontinued(R eorder) Hospital, Clinic, or Other Facility Administered Medication Ordered Dose Route Frequency Start Date End Date Status triamcinolone acetonide (KENALOG-40) 40 mg/mL injection 40 mgIndications:Acute pain of right shoulder,Anxiety,Aneurysm of ascending aorta without rupture ([facility] V24),Type 2 diabetes mellitus with diabetic microalbuminuria, without long-term current use of insulin ([facility] V24, [facility] V28),Secondary hypertension,Hypertriglycerid emia,Gastroesophageal reflux disease without esophagitis,Obstructive sleep apnea,Type 2 diabetes mellitus with diabetic polyneuropathy, with long-term current use of insulin ([facility] V24, [facility] V28),Vitamin D deficiency,Rheumatoid arthritis, involving unspecified site, unspecified whether rheumatoid factor present ([facility] V24, [facility] V28) 40 mg IAtc Once 07/10/2024 Active Active Problems Problem Noted Date Diagnosed Date Aortic ectasia ([facility] V24) 03/01/2024 Overview (03/01/2024): [facility] cardiac surgery. CTA shows aorta to be 3.9 cm. Keep systolic bp below 130 mmHg, no lifting more than [address] angio. If >5 cm will need surgical intervention DM (diabetes mellitus), type 2 with renal complications ([facility] V24, [facility] V28) 03/01/2024 GERD (gastroesophageal reflux disease) Hypertriglyceridemia 03/01/2024 Urge incontinence 06/21/2023 Chest pain 02/15/2023 Type 2 diabetes mellitus wit h diabetic polyneuropathy, with long-term current use of insulin ([facility] V24, [facility] V28) 02/10/2023 Metabolic syndrome 08/24/2021 Palpitations 05/19/2021 Overview (03/01/2024): Palpitations Last Assessment & Plan: The patient continues to have palpitations however she reports they are improved from prior to sotalol trial. These do not seem to be at the forefront of her concern at present, she appears to be doing well in relation to this. We will continue to readdress this as needed. Elevated liver function tests 01/31/2020 Rheumatoid arthritis ([facility] V24, [facility] V28) 09/25/2019 PLMD (periodic limb movement disorder) 9 CAD S/P percutaneous coronary angioplasty 2018 Obstructive sleep apnea 07/05/2018 Overview (03/01/2024): Mild HAL 2009 [facility] Home Polysomnogram: Date 07/04/2018; ROLANDO 27, AI 16; HI 12; Unclassified apneas 15; Obstructive apneas 135; Central apneas 2; Mixed apneas 2; hypopneas 111; average oxygen saturation 92% (lowest 59% with saturations <88% for 5% or more of study) [facility] Polysomnogram treatment study. Date 09/03/2018. Wt 242#; BMI 40; SE 79 % SM 87 %; spent 21 % of the study in REM. On CPAP @ 16; RDI 0 (AHI 0), Central apneas 0; Obstructive apneas 0; Mixed apneas 0; hypopneas 0; RERAs 0; and, average oxygen saturation was 93%. For the entire study, PLMs ~43. - 09/03/2018 Pre-study ESS 8. 3/4 RLS symptoms. - Obstructive Sleep Apnea - moderate; mostly obstructive apneas and hypopneas; with sleep related hypoventilation by 2018 home polysomnogram. Restless leg 09/07/2017 Cervical radiculopathy 01/20/2016 Thoracic spondylosis with cord compression 05/04 Ascending aortic aneurysm ([facility] V24) 10/15/19 Overview (03/01/2024): 4.4 cm 07/30 Lumbar stenosis with neurogenic claudication 07/2013 Overview (03/01/2024): Last Assessment & Plan: Patient describes chronic mid and lower back pain, progressive leg weakness, right leg pain which she states involves the entire leg, not specific to a dermatome. She feels her symptoms have been much worse the last few months. She notes pain with sitting, standing, difficulty walking any significant distance. She does have to sit and take breaks while walking to continue going. She rates her pain as a constant 6/10. She is s/p L4-[address] Hough 06/12/2012, states she has chronic left leg weakness postop. She has history of RA, had her prednisone decreased to 2.5 mg daily. Patient had previous office visit with Dr. Cole May 2013 for cervical and lumbar issues, was seen again in the office in 2017 and had an appointment with Dr. Camara at [facility] June 2020, no surgery recommended. Patient has multiple concerning medical issues including poorly controlled diabetes, she states she thinks her last hemoglobin A1c was down to 11, her sugars regularly run above 400, she has been having difficulty controlling it. She has an appointment with her instrument/control technician later this month. She has RA, is on chronic steroids. She had an HI in 2018, is on Plavix, uses nitro intermittently for chest pain. She has an aortic aneurysm which she states has remained relatively stable on follow-up imaging. Patient had MRI lumbar spine with and without contrast 08/05/2021 at [facility] that shows progressive moderate to severe central stenosis at L4-5, bilateral laminectomy changes at this level, progressive facet arthropathy. At L5-S1 she has broad-based disc bulging, overall similar to prior MRI 2013. Patient also had MRI thoracic spine 08/05/2021 that showed minimal enlargement of a large central disc osteophyte complex at T5-6 compared with films from 2016, no signal change noted in the spinal cord. I reviewed the MRI images on the computer with the patient and her daughter in detail. Ms. Luong will go for lumbar spine flexion-extension x-rays to rule out instability. She does have symptoms of lumbar stenosis with neurogenic claudication, needs to take breaks with walking, but has pain even with standing and sitting. I will review all her films with Dr. Benz and call her with an update, I explained to the patient she has multiple medical issues that may make it difficult to proceed with surgical intervention. I asked her to discuss her diabetes management with her instrument/control technician when she sees them later this month, in the event Dr. Benz recommends surgical intervention. We also discussed the importance of weight loss and working on quitting smoking for the long-term health of her spine. Anxiety 11/14/2012 Overview (03/01/2024): Last Assessment & Plan: Patient does not currently have a behavioral health provider/therapist and was encouraged to reestablish care with one given the recent loss of her brother. Vitamin D deficiency 09/19/2012 HTN (hypertension) 07/29/2011 Overview (03/01/2024): Last Assessment & Plan: The patient's blood pressure is acceptable on her current medical therapies; we will make no changes today. Severe obesity (BMI 35.0-35. 9 with comorbidity) (CMS/HCC V24, [facility] V28) 11/03/2010 Asthmatic bronchitis 01/15/2008 Proteinuria 11/15/2007 Generalized headaches 11/01/2007 Encounters Date Type Department Care Team Description 08/28/2024 10:00 AM EDT Consult Adult Medicine [address] [phone] Tristen Chaves PA Pre-op exam (Primary Dx); Asthmatic bronchitis without complication, unspecified asthma severity, unspecified whether persistent; Secondary hypertension; Hypertriglyceridemia ; Type 2 diabetes mellitus with diabetic microalbuminuria, without long-term current use of insulin ([facility] V24, [facility] V28); Gastroesophageal reflux disease without esophagitis; Type 2 diabetes mellitus with diabetic polyneuropathy, with long-term current use of insulin ([facility] V24, [facility] V28); CAD S/P percutaneous coronary angioplasty 08/22/2024 Telephone Adult Medicine [address] [phone] Tristen Chaves PA Pre-op Exam 07/16/2024 Telephone Plastic & Reconstructive Surgery [facility] [address] [place] [address] Dave Collins, DO Advice Only 07/10/2024 8:15 AM EDT Office Visit Adult Medicine [address] [phone] Tristen Chaves, PA Acute pain of right shoulder (Primary Dx); Anxiety; Aneurysm of ascending aorta without rupture ([facility] V24); Type 2 diabetes mellitus with diabetic microalbuminuria, without long-term current use of insulin ([facility] V24, [facility] V28); Secondary hypertension; Hypertriglyceridemia ; Gastroesophageal reflux disease without esophagitis; Obstructive sleep apnea; Type 2 diabetes mellitus with diabetic polyneuropathy, with long-term current use of insulin ([facility] V24, [facility] V28); Vitamin D deficiency; Rheumatoid arthritis, involving unspecified site, unspecified whether rheumatoid factor present ([facility] V24, [facility] V28) from Last 3 Months Immunizations Name Administration Dates Next Due Influenza Quadravalent, MDCK , 0.5ml, preservative free (Flucelvax) 6mo and older 02/10/2023,01/25/2022,01/08/2021,02/20,01/15/2018 Influenza Quadravalent, MDCK , 0.5ml, with preservative (Flucelvax) 6mo and older 01/27/2017 Influenza trivalent, 0.5mL, preservative free (Fluarix; FluLaval; Fluzone) ages 6mo and older (Afluria) 3 years and older 12/29/2023,01/19/2016,02/13/2015 PPD Test 07/17/2007 Pneumococcal polysaccharide 23 valent (Pneumovax 23) 2yo and older 01/15/2018 Td Tetanus diptheria (Tdvax) 7yo and older 12/13/2022 Tdap Tetanus diptheria acell ular pertussis (Boostrix; Adacel) 7yo and older 08/15/2012 Surgical History Surgery Date Site/Laterality Comments CHOLECYSTECTOMY PROCEDURE: HISTORICAL CHOLECYSTECTOMY TONSILLECTOMY PROCEDURE: HISTORICAL TONSILLECTOMY HAND SURGERY 1991 PROCEDURE: HISTORICAL HAND SURGERY; COMMENT: Patient states she had an infection in the left hand, bacteremia with surgical debridement TUBAL LIGATION PROCEDURE: HISTORICAL TUBAL LIGATION ENDOMETRIAL ABLATION -2004 PROCEDURE: [place] ENDOMETRIAL ABLTJ THERMAL W/O HYSTEROSCOPIC GUID; COMMENT: [place] BACK SURGERY 06/12/2012 PROCEDURE: HISTORICAL BACK SURGERY; COMMENT: L4-5 decompression, Dr. Hough CERVICAL BIOPSY W/ LOOP ELECTRODE EXCISION 1991 PROCEDURE: OK CONIZATION CERVIX W/WO D&C RPR ELTRD EXC OTHER SURGICAL HISTORY PROCEDURE: IMPLT NEUROSTIM ELCTR EACH; COMMENT: removal 2013 OTHER SURGICAL HISTORY 03/2018 PROCEDURE: STENT,CORONARY, S660 OTHER SURGICAL HISTORY 11/07/2023 PROCEDURE: OUTSIDE ENDOSCOPY; COMMENT: Dr. Dozier gastritis COLONOSCOPY 11/07/2023 PROCEDURE: HISTORICAL COLONOSCOPY; COMMENT: Dr. Dozier normal Medical History Medical History Date Comments GERD (gastroesophageal reflux disease) DX:GERD (gastroesophageal reflux disease) Hyperlipemia DX:Hyperlipemia Asthma DX:Asthma Depression DX:Depression Anxiety DX:Anxiety Chronic back pain DX:Chronic tad k pain Aortic ectasia (CMS/HCC V24) DX: Aortic ectasia (HCC) NSTEMI (non-ST elevated myoc ardial infarction) ([facility] V24, [facility] V28) 02/2018 DX:NSTEMI (non- ST elevated myocardial infarction) ([facility]) Rheumatoid arthritis ([facility] V24, [facility] V28) 01/2019 DX:Rheumatoid arthritis (HCC ); COMMENT: perry Diabetes mellitus type 2, un complicated ([facility] V24, [facility] V28) DX:Diabetes mellitus type 2 , uncomplicated (HCC) Fatty liver DX:Fatty liver DM (diabetes mellitus), type 2 with renal complications ([facility] V24, [facility] V28) DX:DM (diabetes mellitus), t ype 2 with renal complications (HCC) Family History Medical History Relation Name Comments Hypertension Father Colon cancer Mother Hypertension Mother hx of diabetes Other: afib Mother Breast cancer Neg Hx Uterine cancer Neg Hx Relation Name Status Comments Father Alive Maternal Grandfather ? Mother Alive cad, dm Paternal Grandfather (Age 72) ca d,dm, stroke Social History Tobacco Use Types Packs/Day Years Used Date Smoking Tobacco: Every Day Cigarettes 0.8 37.4 Started: 04/17/1987 Smokeless Tobacco: Never Tobacco Cessation:Ready to Q uit: Not Asked; Counseling Given: Not Answered Alcohol Use Standard Drinks/Week Comments No 0 (1 standard drink = 0.6 oz pur e alcohol) Housing Instability Answer Date Recorde d Are you worried that in the next 2 months you may not have stable housing? No 04/04/2024 Food Access & Nutrition Answer Date Rec orded Do you have access to a vari ety of food including fruits and vegetables? Yes 04/04/2024 Access to Healthcare Answer Date Record ed Within the last 3 months, jamie edwards many times did you visit the emergency department for your medical care? 0 04/04/2024 Health Literacy Answer Date Recorded How often do you need to hav e someone help you when you read instructions, pamphlets, or other written material from your doctor or pharmacy? Never 04/04/2024 Caregiver: How often do you need to have someone help you when you read instructions, pamphlets, or other written material from your doctor or pharmacy? Not on file 04/04/2024 Financial Risk Answer Date Recorded How hard is it for you to pa y for the very basics like food, housing, medical care, and air conditioning / heating? Somewhat hard 04/04/2024 Transportation Answer Date Recorded Has the lack of transportati on kept you from meetings, work, or from getting things needed for daily living? No Has the lack of transportati on kept you from medical appointments or from getting medications? No 04/04/2024 Social Isolation Answer Date Recorded How often do you feel lonely or isolated from those around you? Sometimes 04/04/2024 Food Risk Answer Date Recorded Within the past 12 months we worried whether our food would run out before we got money to buy more. Never true 04/04/2024 Within the past 12 months th e food we bought just didn't last and we didn't have money to get more. Never true 04/04/2024 Dependent Care Answer Date Recorded Do you need help finding or paying for care for your loved ones. For example, child care provider or elderly care for an older adult? No 04/04/2024 Education Answer Date Recorded Do you think completing more education or training, like finishing a GED, going to college, or learning a trade, would be helpful for you? No 04/04/2024 Employment and Income Answer Date Recor ded During the last four weeks, have you been actively looking for work? No 04/04/2024 Living Situation Answer Date Recorded What is your living situation? 1 06/05/2023 Comments No Sex and Gender Information Value Date Recorded Sex Assigned at Female 03/06/2024 12:03 PM EST Legal Sex Female 5:42 PM EST Gender Identity Female 03/06/2024 12:03 PM EST Sexual Orientation Straight 03/06/2024 12 :03 PM EST Obstetrics History Last Filed Vital Signs Vital Sign Reading Time Taken Comments Blood Pressure 137/90 08/28/2024 10:06 AM EDT Pulse 100 08/28/2024 10:06 AM EDT Temperature 36.5 ??C (97.7 ??F) 08/28/2024 10:06 AM E DT Respiratory Rate 08/28/2024 10:06 AM EDT Oxygen Saturation - - Inhaled Oxygen Concentration - - Weight 90.8 kg (200 lb 3.2 oz) 08/28/2024 10:06 AM EDT Height 165.1 cm (5' 5 ) 08/28/2024 10:06 AM EDT Body Mass Index 33.32 08/28/2024 10:06 AM EDT Plan of Treatment Upcoming Encounters Date Type Department Care Team (Late st Contact Info) Description 09/19/2024 8:40 AM EDT Office Visit [facility] [address] [facility] [address] [place] [address] Arlyn Shields, OPTIMIZATION SPECIALIST [address] [place] [address] 10/09/2024 8:45 AM EDT Office Visit Adult Medicine [address] [phone] Tristen Chaves, PA [address] [place] [address] 01/10/2025 8:30 AM EDT Office Visit Adult Medicine [address] [phone] Tristen Chaves, PA [address] [place], [place] [phone] Health Maintenance Due Date Last Done Comments COVID-19 Vaccine (#1) 1976 Hepatitis A Vaccines (1 of 2 - Risk 2-dose series) 1990 Hepatitis B Vaccines (1 of 3 - 19+ 3-dose series) 1990 Pneumococcal Vaccine: 50+ Years (2 of 2 - PCV) 01/15/2019 01/15/2018 Pneumococcal Vaccine: Pediatrics (0 to 5 Years) and At-Risk Patients (6 to 64 Years) (2 of 2 - PCV) 01/15/2019 01/15/2018 Zoster Vaccines (1 of 2) 2021 Cervical Cancer Screening: Pap Smear 08/28/2021 08/28/2018, 08/28/2018, 08/28/2018 Medicare Annual Wellness Visit 03/26/2022 Breast Cancer Screening 09/09/2024 09/10/19 23, 08/16/2021, 09/01/2020, Additional history exists Diabetes: Blood Sugar Control Test (HGBA1C) 01/10/2025 07/10/2024, 05/15/2024, 12/29/2023, Additional history exists Social Influencers of Health Screening 04/04/2025 04/04/2024 Diabetes: Annual Foot Exam 06/25/2025 06/25/2024 Diabetes: Annual Retina Eye Exam 06/26/2025 06/26/2024, 06/20/2023 Diabetes: Annual Urine Albumin-Creatinine Ratio (uACR) 07/10/2025 07/10/2024, 05/15/2024, 12/29/2023 Diabetes: Annual GFR (Glomerular Filtration Rate) 07/10/2025 07/10/2024, 05/15/2024, 12/29/2023, Additional history exists Hypertension/CHF/CAD Annual BMP Blood Test 07/10/2025 07/10/2024, 05/15/2024, 12/29/2023, Additional history exists Depression Screening 08/23/2025 08/23/2024 Lung Cancer Screening (Low Dose CT) 04/07/2027 Postponed from 03/26/2022 (Not clinically appropriate to address at this time) Cholesterol Screening (Lipid Panel) 07/10/2029 07/10/2024, 07/10/2024, 05/15/2024, Additional history exists DTaP,Tdap,and Td Vaccines (3 - Td or Tdap) 12/13/2032 12/13/2022, 08/15/2012 Colorectal Cancer Screening: Colonoscopy 11/06/2033 11/07/2023 HIV Screening Completed 06/11/2013 Hepatitis C Screening Completed 04/08/2020 Influenza Vaccine Completed 12/29/2023, , 01/25/2022, Additional history exists HIB Vaccines Aged Out No longer eligi ble based on patient's age to complete this topic HPV Vaccines Aged Out No longer eligi ble based on patient's age to complete this topic IPV Vaccines Aged Out No longer eligi ble based on patient's age to complete this topic MMR Vaccines Aged Out No longer eligi ble based on patient's age to complete this topic Meningococcal ACWY Vaccine Aged Out N o longer eligible based on patient's age to complete this topic Meningococcal B Vaccine Aged Out No l onger eligible based on patient's age to complete this topic RSV Immunization Patients Under 20 months Aged Out No longer eligible b ased on patient's age to complete this topic Varicella Vaccines Aged Out No longer eligible based on patient's age to complete this topic Procedures Procedure Name Priority Date/Time Associated Diagnosis Comments ECG 12-LEAD TRACING ONLY Routine 08/28/2024 10:46 AM EDT Pre-op exam OPIATES CONFIRMATION, URINE Routine 07/10/2024 9:21 AM EDT Acute pain of right shoulder Anxiety Aneurysm of ascending aorta without rupture ([facility] V24) Type 2 diabetes mellitus with diabetic microalbuminuria, without long-term current use of insulin ([facility] V24, [facility] V28) Secondary hypertension Hypertriglyceridemia Gastroesophageal reflux disease without esophagitis Obstructive sleep apnea Type 2 diabetes mellitus with diabetic polyneuropathy, with long-term current use of insulin ([facility] V24, [facility] V28) Vitamin D deficiency Rheumatoid arthritis, involving unspecified site, unspecified whether rheumatoid factor present ([facility] V24, [facility] V28) LDL CHOLESTEROL, DIRECT Routine 07/10/2024 9:21 AM EDT Acute pain of right shoulder Anxiety Aneurysm of ascending aorta without rupture ([facility] V24) Type 2 diabetes mellitus with diabetic microalbuminuria, without long-term current use of insulin ([facility] V24, [facility] V28) Secondary hypertension Hypertriglyceridemia Gastroesophageal reflux disease without esophagitis Obstructive sleep apnea Type 2 diabetes mellitus with diabetic polyneuropathy, with long-term current use of insulin ([facility] V24, [facility] V28) Vitamin D deficiency Rheumatoid arthritis, involving unspecified site, unspecified whether rheumatoid factor present ([facility] V24, [facility] V28) CBC WITH AUTO DIFFERENTIAL Routine 07/10/2024 9:21 AM EDT Acute pain of right shoulder Anxiety Aneurysm of ascending aorta without rupture ([facility] V24) Type 2 diabetes mellitus with diabetic microalbuminuria, without long-term current use of insulin ([facility] V24, [facility] V28) Secondary hypertension Hypertriglyceridemia Gastroesophageal reflux disease without esophagitis Obstructive sleep apnea Type 2 diabetes mellitus with diabetic polyneuropathy, with long-term current use of insulin ([facility] V24, [facility] V28) Vitamin D deficiency Rheumatoid arthritis, involving unspecified site, unspecified whether rheumatoid factor present ([facility] V24, [facility] V28) DRUG ABUSE SCREEN EXPANDED WITH REFLEX CONFIRMATION, URINE Routine 07/10/2024 9:21 AM EDT Acute pain of right shoulder Anxiety Aneurysm of ascending aorta without rupture ([facility] V24) Type 2 diabetes mellitus with diabetic microalbuminuria, without long-term current use of insulin ([facility] V24, [facility] V28) Secondary hypertension Hypertriglyceridemia Gastroesophageal reflux disease without esophagitis Obstructive sleep apnea Type 2 diabetes mellitus with diabetic polyneuropathy, with long-term current use of insulin ([facility] V24, [facility] V28) Vitamin D deficiency Rheumatoid arthritis, involving unspecified site, unspecified whether rheumatoid factor present ([facility] V24, [facility] V28) LIPID PANEL WITH REFLEX TO DIRECT LDL Routine 07/10/2024 9:21 AM EDT Acute pain of right shoulder Anxiety Aneurysm of ascending aorta without rupture ([facility] V24) Type 2 diabetes mellitus with diabetic microalbuminuria, without long-term current use of insulin ([facility] V24, [facility] V28) Secondary hypertension Hypertriglyceridemia Gastroesophageal reflux disease without esophagitis Obstructive sleep apnea Type 2 diabetes mellitus with diabetic polyneuropathy, with long-term current use of insulin ([facility] V24, [facility] V28) Vitamin D deficiency Rheumatoid arthritis, involving unspecified site, unspecified whether rheumatoid factor present ([facility] V24, [facility] V28) MICROALBUMIN CREATININE URINE RATIO Routine 07/10/2024 9:21 AM EDT Acute pain of right shoulder Anxiety Aneurysm of ascending aorta without rupture ([facility] V24) Type 2 diabetes mellitus with diabetic microalbuminuria, without long-term current use of insulin ([facility] V24, [facility] V28) Secondary hypertension Hypertriglyceridemia Gastroesophageal reflux disease without esophagitis Obstructive sleep apnea Type 2 diabetes mellitus with diabetic polyneuropathy, with long-term current use of insulin ([facility] V24, [facility] V28) Vitamin D deficiency Rheumatoid arthritis, involving unspecified site, unspecified whether rheumatoid factor present ([facility] V24, [facility] V28) COMPREHENSIVE METABOLIC PANEL Routine 07/10/2024 9:21 AM EDT Acute pain of right shoulder Anxiety Aneurysm of ascending aorta without rupture ([facility] V24) Type 2 diabetes mellitus with diabetic microalbuminuria, without long-term current use of insulin ([facility] V24, [facility] V28) Secondary hypertension Hypertriglyceridemia Gastroesophageal reflux disease without esophagitis Obstructive sleep apnea Type 2 diabetes mellitus with diabetic polyneuropathy, with long-term current use of insulin ([facility] V24, [facility] V28) Vitamin D deficiency Rheumatoid arthritis, involving unspecified site, unspecified whether rheumatoid factor present ([facility] V24, [facility] V28) HEMOGLOBIN A1C Routine 07/10/2024 9:21 AM EDT Acute pain of right shoulder Anxiety Aneurysm of ascending aorta without rupture ([facility] V24) Type 2 diabetes mellitus with diabetic microalbuminuria, without long-term current use of insulin ([facility] V24, [facility] V28) Secondary hypertension Hypertriglyceridemia Gastroesophageal reflux disease without esophagitis Obstructive sleep apnea Type 2 diabetes mellitus with diabetic polyneuropathy, with long-term current use of insulin ([facility] V24, [facility] V28) Vitamin D deficiency Rheumatoid arthritis, involving unspecified site, unspecified whether rheumatoid factor present ([facility] V24, [facility] V28) VITAMIN D 25 HYDROXY Routine 07/10/2024 9:21 AM EDT Acute pain of right shoulder Anxiety Aneurysm of ascending aorta without rupture ([facility] V24) Type 2 diabetes mellitus with diabetic microalbuminuria, without long-term current use of insulin ([facility] V24, [facility] V28) Secondary hypertension Hypertriglyceridemia Gastroesophageal reflux disease without esophagitis Obstructive sleep apnea Type 2 diabetes mellitus with diabetic polyneuropathy, with long-term current use of insulin ([facility] V24, [facility] V28) Vitamin D deficiency Rheumatoid arthritis, involving unspecified site, unspecified whether rheumatoid factor present ([facility] V24, [facility] V28) CBC AND DIFFERENTIAL Routine 07/10/2024 9:21 AM EDT Acute pain of right shoulder Anxiety Aneurysm of ascending aorta without rupture ([facility] V24) Type 2 diabetes mellitus with diabetic microalbuminuria, without long-term current use of insulin ([facility] V24, [facility] V28) Secondary hypertension Hypertriglyceridemia Gastroesophageal reflux disease without esophagitis Obstructive sleep apnea Type 2 diabetes mellitus with diabetic polyneuropathy, with long-term current use of insulin ([facility] V24, [facility] V28) Vitamin D deficiency Rheumatoid arthritis, involving unspecified site, unspecified whether rheumatoid factor present ([facility] V24, [facility] V28) COLONOSCOPY Routine 11/07/2023 DIABETES EYE EXAM Routine 06/20/2023 DIAGNOSTIC MAMMOGRAPHY INCLUDING CAD BILATERAL Routine 09/09/2022 11:34 AM EDT Mammographic microcalcification found on diagnostic imaging of breast HEPATITIS C SCREENING Routine 04/08/2020 PAP SMEAR Routine 08/28/2018 HIV SCREENING Routine 06/11/2013 from Last 3 Months or Most Recently Relevant to Health Maintenance Results * ECG 12 lead Tracing Only (08/28/2024 10:46 AM EDT) Tristen VALDOVINOS ECG ORDERABLES Final Res ult * (ABNORMAL) Drug abuse screen expanded with reflex confirmation, urine (07/10/2024 9:21 AM EDT) Amphetamine Screen, Ur Negative Negative LAB CHEMISTRY METHOD 5 2:50 PM EDT [facility] Comment:Certain OTC medicati ons containing ephedrine, phenylephrine, pseudoephedrine and phenylpropanolamine can cause false positive results. Barbiturate Screen, Ur Negative Negative LAB CHEMISTRY METHOD 5 2:50 PM EDT [facility] Benzodiazepine Screen, Ur Negative Negative LAB CHEMISTRY METHOD 5 2:50 PM EDT [facility] Cocaine Screen, Ur Negative Negative LAB CHEMISTRY METHOD 5 2:50 PM EDT [facility] Opiate Screen, Ur Negative Negative LAB CHEMISTRY METHOD 5 2:50 PM EDT [facility] Cannabinoid (THC) Screen, Ur Negative Negative LAB CHEMISTRY METHOD 5 2:50 PM EDT [facility] Comment:Specimens from patie nts taking pantoprazole sodium (Protonix) have been shown to produce false positive results. Fentanyl, Ur Negative Negative LAB CHEMISTRY METHOD 5 2:50 PM EDT [facility] Oxycodone Screen, Ur Positive(A ) Negative LAB CHEMISTRY METHOD 5 2:50 PM EDT [facility] Urine Urine specimen obtained by clean catch procedure / Unknown Non-blood Collection / Unknown 07/10/2024 9:21 AM EDT 07/10/2024 9:21 AM EDT Narrative [facility] - 07/10/2024 2:50 PM EDT Assay cutoffs: Amphetamines ? 1000 ng/mL Barbiturates ?200 ng/mL Benzodiazepines ?? 200 ng/mL Cocaine ? 300 ng/mL Fentanyl ?1 ng/mL Opiates ? 300 ng/mL Oxycodone ? 100 ng/mL THC ?50 ng/mL Semi-quantitative assay for screening purposes only. Unconfirmed screening result should not be used for non-medical purposes. *POSITIVE RESULTS ARE AUTOMATICALLY SENT FOR ALTERNATE METHOD CONFIRMATION* Tristen VALDOVINOS LAB URINE ORDERABLES Latia leyva Result [facility] [address] [place] [address], * Opiates confirmation, urine (07/10/2024 9:21 AM EDT) [facility] Morphine Confirm, Urine Negative ng/mL 07/15/2024 3:32 PM EDT [facility] Codeine Confirm, Urine Negative ng/mL 07/15/2024 3:32 PM EDT [facility] Hydrocodone Confirm, Urine Negative ng/mL 07/15/2024 3:32 PM EDT [facility] Hydromorphone Confirm, Urine Negative ng/mL 07/15/2024 3:32 PM EDT [facility] Oxycodone Confirm, Urine 281 ng/mL 07/15/2024 3:32 PM EDT [facility] Oxymorphone Confirm, Urine 135 ng/mL 07/15/2024 3:32 PM EDT [facility] Creatinine 44 20 - 250 mg/dL 07/15/2024 3:32 PM EDT [facility] Adulterants Negative 07/15/2024 3:32 PM EDT [facility] Comment: ? Confirmation (LC/MS/MS) Decision Limits ?Morphine ?25 ng/mL ?Codeine ? 25 ng/mL ?Hydrocodone ? 25 ng/mL ?Hydromorphone ? 25 ng/mL ?Oxycodone ? 25 ng/mL ?Oxymorphone ? 25 ng/mL ?Adulterant Decision Limit: ? General Oxidants ? 200 ug/mL ?The adulterant assay tests for General Oxidants, ??including Chromates and Nitrites. ??Adulterants are ??substances either ingested or added directly to a ??urine specimen to prevent the detection of drug use. If applicable, any drug confirmation testing reported here was developed and the performance characteristics determined by [facility]. This confirmation testing has not been cleared or approved by the FDA. The laboratory is regulated under CLIA as qualified to perform high-complexity testing. This test is used for patient testing purposes. It should not be regarded as investigational or for research. Test performed at [facility], [address] , [place], [place] ??[address] ? [phone] Yazmin Francois MD, PhD - Launch Operator Urine Urine specimen obtained by clean catch procedure / Unknown Non-blood Collection / Unknown 07/10/2024 9:21 AM EDT 07/10/2024 2:50 PM EDT Tristen VALDOVINOS LAB URINE ORDERABLES Latia leyva Result [facility] [address] [place] [address] * (ABNORMAL) Lipid panel with reflex to direct LDL (07/10/2024 9:21 AM EDT) Cholesterol 202(H) 0 - 200 mg/dL LAB CHEMISTRY METHOD 07/10/2024 2:07 PM EDT [facility] Triglycerides 749(H) 0 - 150 mg/dL LAB CHEMISTRY METHOD 07/10/2024 2:07 PM EDT [facility] HDL 31(L) >=40 mg/dL LAB CHEMISTRY METHOD 07/10/2024 2:07 PM EDT [facility] LDL Calculated LAB CHEMISTRY METHOD 07/10/2024 2:07 PM EDT [facility] Comment: Unable to calculate when triglycerides >400 mg/dL. Triglyceride value is >= 500. ??Calculated LDL is not meaningful. ??Direct LDL has been added. VLDL Cholesterol Matt LAB CHEMISTRY METHOD 07/10/2024 2:07 PM EDT [facility] Comment:Unable to calculate when triglycerides >400 mg/dL. Non HDL Chol. (LDL+VLDL) LAB CHEMISTRY METHOD 07/10/2024 2:07 PM EDT [facility] Comment:Unable to calculate when triglycerides >400 mg/dL. Chol/HDL Ratio 6.5(H) 0.0 - 4.4 LAB CHEMISTRY METHOD 07/10/2024 2:07 PM EDT [facility] Blood Venous blood specimen / Unknown Venipuncture / Unknown 07/10/2024 9:21 AM EDT 07/10/2024 9:21 AM EDT Tristen VALDOVINOS LAB BLOOD ORDERABLES Latia leyva Result [facility] [address] [place] [address], * (ABNORMAL) CBC auto differential (07/10/2024 9:21 AM EDT) WBC 9.0 4.8 - 10.8 K/mcL LAB HEMETOLOGY METHOD 07/10/2024 10:34 AM [facility] RBC 5.50(H) 3.80 - 4.80 M/mcL LAB HEMETOLOGY METHOD 07/10/2024 10:34 AM [facility] Hemoglobin 16.6(H) 11.5 - 16.0 g/dL LAB HEMETOLOGY METHOD 07/10/2024 10:34 AM [facility] Hematocrit 49.4(H) 35.0 - 47.0 % LAB HEMETOLOGY METHOD 07/10/2024 10:34 AM [facility] MCV 89.7 79.0 - 98.0 FL LAB HEMETOLOGY METHOD 07/10/2024 10:34 AM [facility] MCH 30.1 27.0 - 32.0 pcg LAB HEMETOLOGY METHOD 07/10/2024 10:34 AM [facility] MCHC 33.6 32.0 - 37.0 g/dL LAB HEMETOLOGY METHOD 07/10/2024 10:34 AM [facility] RDW 12.9 11.0 - 15.0 % LAB HEMETOLOGY METHOD 07/10/2024 10:34 AM [facility] Platelets 166 130 - 400 K/mcL LAB HEMETOLOGY METHOD 07/10/2024 10:34 AM [facility] MPV 9.9 7.0 - 11.0 FL LAB HEMETOLOGY METHOD 07/10/2024 10:34 AM [facility] NRBC 0.0 <1.0 % LAB HEMETOLOGY METHOD 07/10/2024 10:34 AM [facility] NRBC Absolute 0.00 <0.10 K/mcL LAB HEMETOLOGY METHOD 07/10/2024 10:34 AM [facility] Neutrophils Relative 68.6 % LAB HEMETOLOGY METHOD 07/10/2024 10:34 AM [facility] Lymphocytes Relative 22.8 % LAB HEMETOLOGY METHOD 07/10/2024 10:34 AM [facility] Monocytes Relative 5.8 % LAB HEMETOLOGY METHOD 07/10/2024 10:34 AM [facility] Eosinophils Relative 1.4 % LAB HEMETOLOGY METHOD 07/10/2024 10:34 AM [facility] Basophils Relative 0.8 % LAB HEMETOLOGY METHOD 07/10/2024 10:34 AM [facility] Immature Granulocytes Relative 0.6 % LAB HEMETOLOGY METHOD 07/10/2024 10:34 AM [facility] Neutrophils Absolute 6.19 1.50 - 7.00 K/mcL LAB HEMETOLOGY METHOD 07/10/2024 10:34 AM EDT [facility] Lymphocytes Absolute 2.05 1.00 - 5.00 K/mcL LAB HEMETOLOGY METHOD 07/10/2024 10:34 AM EDT [facility] Monocytes Absolute 0.52 0.20 - 1.00 K/mcL LAB HEMETOLOGY METHOD 07/10/2024 10:34 AM EDT [facility] Eosinophils Absolute 0.13 0.00 - 0.50 K/[facility] LAB HEMETOLOGY METHOD 07/10/2024 10:34 AM EDT [facility] Basophils Absolute 0.07 0.00 - 0.20 K/[facility] LAB HEMETOLOGY METHOD 07/10/2024 10:34 AM EDT [facility] Immature Granulocytes Absolute 0.05(H) 0.00 - 0.03 K/[facility] LAB HEMETOLOGY METHOD 07/10/2024 10:34 AM EDT [facility] Blood Venous blood specimen / Unknown Venipuncture / Unknown 07/10/2024 9:21 AM EDT 07/10/2024 9:21 AM EDT us Tristen VALDOVINOS LAB BLOOD ORDERABLES Latia l Result [facility] [address] [place] [address], * (ABNORMAL) Microalbumin creatinine urine ratio (07/10/2024 9:21 AM EDT) Creatinine, Urine 48.0 mg/dL LAB CHEMISTRY METHOD 07/10/2024 3:32 PM EDT [facility] Microalb, Ur 699.0(H) 0.0 - 29.0 mg/L LAB CHEMISTRY METHOD 07/10/2024 3:32 PM EDT [facility] Comment:Results verified by repeat testing Microalb/Crea t Ratio 1,456(H) <30 mg/g creat LAB CHEMISTRY METHOD 07/10/2024 3:32 PM EDT [facility] Urine Urine specimen obtained by clean catch procedure / Unknown Non-blood Collection / Unknown 07/10/2024 9:21 AM EDT 07/10/2024 9:21 AM EDT Tristen VALDOVINOS LAB URINE ORDERABLES Latia l Result Performing Organization Address City/[facility]/ZIP Co de Phone Number [facility] [address] [place] [address], [place] [phone] * (ABNORMAL) Vitamin D 25 hydroxy (07/10/2024 9:21 AM EDT) Vit D, 25-Hydroxy 18.3(L) 30.0 - 80.0 ng/mL LAB CHEMISTRY METHOD 07/10/2024 2:40 PM EDT [facility] Blood Venous blood specimen / Unknown Venipuncture / Unknown 07/10/2024 9:21 AM EDT 07/10/2024 9:21 AM EDT Tristen VALDOVINOS LAB BLOOD ORDERABLES Latia l Result Performing Organization Address City/[facility]/ZIP Co de Phone Number [facility] [address] [place] [address], [place] [phone] * LDL cholesterol, direct (07/10/2024 9:21 AM EDT) LDL Direct 92 <=100 mg/dL LAB CHEMISTRY METHOD 07/10/2024 2:20 PM EDT [facility] Blood Venous blood specimen / Unknown Venipuncture / Unknown 07/10/2024 9:21 AM EDT 07/10/2024 9:21 AM EDT Tristen VALDOVINOS LAB BLOOD ORDERABLES Latia l Result Performing Organization Address City/[facility]/ZIP Co de Phone Number [facility] [address] [place] [address], * (ABNORMAL) Hemoglobin A1c (07/10/2024 9:21 AM EDT) [facility] Hemoglobin A1C 10.2(H) <6.5 % LAB CHEMISTRY METHOD 07/10/2024 11:23 AM EDT [facility] Mean Bld Glu Estim. 246 mg/dL LAB CHEMISTRY METHOD 07/10/2024 11:23 AM EDT [facility] Blood Venous blood specimen / Unknown Venipuncture / Unknown 07/10/2024 9:21 AM EDT 07/10/2024 9:21 AM EDT Tristen VALDOVINOS LAB BLOOD ORDERABLES Latia l Result Performing Organization Address City/[facility]/ZIP Co de Phone Number [facility] [address] [place] [address], * (ABNORMAL) Comprehensive metabolic panel (07/10/2024 9:21 AM EDT) [facility] Sodium 135 133 - 145 mmol/L LAB CHEMISTRY METHOD 07/10/2024 2:07 PM [facility] Potassium 4.0 3.5 - 5.5 mmol/L LAB CHEMISTRY METHOD 07/10/2024 2:07 PM [facility] Chloride 100 96 - 110 mmol/L LAB CHEMISTRY METHOD 07/10/2024 2:07 PM [facility] CO2 29 21 - 32 mmol/L LAB CHEMISTRY METHOD 07/10/2024 2:07 PM [facility] Anion Gap 6 3 - 11 LAB CHEMISTRY METHOD 07/10/2024 2:07 PM [facility] Glucose 371(H) 70 - 100 mg/dL LAB CHEMISTRY METHOD 07/10/2024 2:07 PM [facility] BUN 17 5 - 25 mg/dL LAB CHEMISTRY METHOD 07/10/2024 2:07 PM [facility] Creatinine 0.66 0.50 - 1.10 mg/dL LAB CHEMISTRY METHOD 07/10/2024 2:07 PM [facility] eGFR 105 >=60 mL/min/1. 73m2 LAB CHEMISTRY METHOD 07/10/2024 2:07 PM [facility] Comment:Calculation based on the??Chronic Kidney Disease Epidemiology Collaboration (CKD-EPI) equation refit??without adjustment for race. BUN/Creatinine Ratio 25.8 LAB CHEMISTRY METHOD 07/10/2024 2:07 PM [facility] Calcium 9.7 8.5 - 10.5 mg/dL LAB CHEMISTRY METHOD 07/10/2024 2:07 PM [facility] AST (SGOT) 25 10 - 42 unit/L LAB CHEMISTRY METHOD 07/10/2024 2:07 PM [facility] ALT (SGPT) 41 10 - 60 unit/L LAB CHEMISTRY METHOD 07/10/2024 2:07 PM [facility] [facility] Alkaline Phosphatase 161(H) 42 - 121 unit/L LAB CHEMISTRY METHOD 07/10/2024 2:07 PM [facility] Total Protein 7.6 6.0 - 8.0 g/dL LAB CHEMISTRY METHOD 07/10/2024 2:07 PM [facility] Albumin 3.6 3.2 - 5.0 g/dL LAB CHEMISTRY METHOD 07/10/2024 2:07 PM [facility] Total Bilirubin 0.5 0.0 - 1.4 mg/dL LAB CHEMISTRY METHOD 07/10/2024 2:07 PM [facility] Blood Venous blood specimen / Unknown Venipuncture / Unknown 07/10/2024 9:21 AM EDT 07/10/2024 9:21 AM EDT Tristen VALDOVINOS LAB BLOOD ORDERABLES Latia gordon Result [facility] [address] [place] [address], [place] [phone] * Colonoscopy (11/07/2023) Colonoscopy No Interpretation , Abstracted Anatomical Region Laterality Modality Other Historical Provider MD HEALTH MAINTENANCE Final Result * Diabetes Eye Exam (06/20/2023) Diabetes: Annual Retina Eye Exam Abstracted Historical Provider MD HEALTH MAINTENANCE Final Result * DIAGNOSTIC MAMMOGRAPHY INCLUDING CAD BILATERAL (09/09/2022 11:34 AM EDT) Anatomical Region Laterality Modality Mammography 08/16/2021 9:43 AM EDT Narrative 09/09/2022 11:36 AM EDT This is a summary report. The complete report is available in the patient's medical record. If you cannot access the medical record, please contact the sending organization for a detailed fax or copy. BILATERAL 3D DIGITAL SCREENING MAMMOGRAM History: Routine screening. ??No current breast complaints. ?? Comparison: Multiple priors dating back to 05/21/2018 Technique: Bilateral full-field digital 3D mammography was performed using standard CC and MLO projections, right breast CC, MLO and ML magnification views, right breast exaggerated cc CAD was used to evaluate this mammogram. Findings: Density: ??There are scattered areas of fibroglandular density-B RIGHT: Morphologically stable grouped calcifications at middle depth which demonstrate 2-year stability. ??No new suspicious findings LEFT: No suspicious masses, groups of microcalcifications or areas of architectural distortion identified. Stable typically benign parenchymal asymmetries IMPRESSION: : 1. ??No mammographic evidence of malignancy. BI-RADS Category 2 benign findings Recommendation: Routine annual screening mammography is recommended Procedure Note Li Luther MD - 05/22/2023 This is a summary report. The complete report is available in thepatient's medical record. If you cannot access the medical record, pleasecontact the sending organization for a detailed fax or copy. BILATERAL 3D DIGITAL SCREENING MAMMOGRAM History: Routine screening. No current breast complaints. Comparison: Multiple priors dating back to 05/21/2018 Technique: Bilateral full-field digital 3D mammography was performed usingstandard CC and MLO projections, right breast CC, MLO and ML magnificationviews, right breast exaggerated cc CAD was used to evaluate this mammogram. Findings: Density: There are scattered areas of fibroglandular density-B RIGHT: Morphologically stable grouped calcifications at middle depth whichdemonstrate 2-year stability. No new suspicious findings LEFT: No suspicious masses, groups of microcalcifications or areas ofarchitectural distortion identified. Stable typically benign parenchymalasymmetries IMPRESSION: : 1. No mammographic evidence of malignancy. BI-RADS Category 2 benign findings Recommendation: Routine annual screening mammography is recommended Tristen VALDOVINOS IMG BI PROCEDURES Final R esult * Hepatitis C Screening (04/08/2020) Hepatitis C Screening Abstracted Historical Provider HEALTH MAINTENANCE Final Result * Pap smear (08/28/2018) 08/28/2018 Narrative HISTORICAL TESTING LAB RESULTING AGENCY - 08/30/2018 4:40 PM EDT [id number] THINPREP PAP, IMAGED: NEGATIVE FOR SQUAMOUS INTRAEPITHELIAL LESION AND MALIGNANCY . YENI FRANKLIN , DARLYN(ASCP) (CASE ELECTRONICALLY SIGNED 08 30 2018) RESULT OF APTIMA HIGH RISK HPV ASSAY: HIGH RISK HPV: ??NEGATIVE (SEROTYPES 16,18,31,33,35,39,45,51,52,56,58,59,66,68) COMPLETED ON 2018-08-30 ADEQUACY: SATISFACTORY ENDOCERVICAL/TRANSFORMATION ZONE COMPONENT PRESENT. SOURCE: THINPREP PAP HPV ANY DX: ??REFLEX 16 AND 18, CERVICAL, IMAGED CLINICAL INFORMATION: HPV ANY DIAGNOSIS. PAP HX NEG [Z12.4] Aga Moreno MD LAB CYTOLOGY ORDERABLES Final Result HISTORICAL TESTING LAB RESULTING AGENCY * HIV Screening (06/11/2013) Pathologist [facility] HIV Screening Abstracted Historical Provider HEALTH MAINTENANCE Final Result from Last 3 Months or Most Recently Relevant to Health Maintenance Insurance [employer] MEDICARE Member Subscriber Plan / Payer (Ef fective 2017-Present) Name:RAFAELA LUONG Relation to Subscriber:Self Name:Rafaela Luong Payer ID:[id number] Group ID:[id number] Type:Not on file Address: [place] [address] [address] [address] Care Teams Senior Software Developer Relationship Specialty Start Date End Date Tristen Chaves PA [address] [place] [address] PCP - General Internal Medicine 02/02/21
--- OUTSIDE RECORDS SUMMARY | 2024-09-04 13:45 | XMS_ITS | Data Portability ---
Author Organization [employer] [employer] [facility] Address [address] [place] [phone] Care Team Providers Care Help Aid Name Role Phone HIM CCA OTHER [facility] Primary Care Provider Assessment No assessment recorded. Plan of Treatment Reminders Order Date Submit Date Provider Last Modified By Organization Details Last Modified Time Details Appointments Urgent Care 2024 11:39A M Kennedy Hernandez MD Not available Not available Not available Lab None recorded. Referral None recorded. Procedures None recorded. Surgeries None recorded. Imaging None recorded. Medication Orders ketorolac 30 mg/mL (1 mL) injection solution 2022 0[email or web address] Not available 05/20/2022 15:46:27 Patient TargetsNo targets recorded. Patient InstructionsNo instructions recorded. Reason for Referral None Reported. Medical Equipment None Reported. Allergies Allergen ID Allergen Name Allergen Category Reaction Reaction Severity Criticality Documentation Date Start Date Code Code System Note Provider Name and Address Organization Details Recorded Time 35886 Buspar medicatio n Not available Not available Not available 09/04/2024 97446 0 RxNorm Not Available [facility] 5 08:39:55 78198 Effexor medicatio n Not available Not available Not available 09/04/2024 06674 2 RxNorm Not Available [facility] production 5 08:39:55 90399 Zithromax medicatio n Not available Not available Not available 09/04/2024 82414 4 RxNorm Not Available [facility] production 5 08:39:55 6970 doxycycli ne Not available Not available Not available Not available 02/13/2024 3640 RxNorm Not Available [facility] production 4 03:33:57 Medications Name Sig Start Date Stop Date Status Note LastModified by Organization Details LastModified Time 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 [id number] active Not Available Not Available No t Available carvedilol 25 mg tablet active Not Available Not Available Not Available clindamycin HCl 300 mg capsule TAKE 1 CAPSULE BY MOUTH EVERY 6 HOURS active Not Available Not Available No t Available tizanidine 4 mg tablet active Not Available Not Available No t Available FreeStyle Lancets 28 gauge active Not Available Not Available Not Available sertraline 100 mg tablet active Not Available Not Available Not Available prednisone 5 mg tablet active Not Available Not Available No t Available glipizide ER 5 mg tablet, extended release 24 hr active Not Available Not Available Not Available clindamycin HCl 150 mg capsule TAKE 2 CAPSULES BY MOUTH 1 HOUR PRIOR TO DENTAL APPOINTMENT . TAKE 1 CAPSULE 6 HOURS AFTER APPOINTMENT active Not Available Not Available Not Available amlodipine 2.5 mg tablet active Not Available Not Available Not Available clopidogrel 75 mg tablet active Not Available Not Available Not Available amlodipine 5 mg tablet TAKE 1 TABLET BY MOUTH DAILY active Not Available Not Available Not Available aspirin 81 mg tablet,delay ed release active Not Available Not Available N ot Available acetaminophe n 500 mg tablet TAKE 1 TABLET BY MOUTH EVERY 4 TO 6 HOURS NEEDED active Not Available Not Available No t Available ondansetron 8 mg disintegrati ng tablet DISSOLVE 1 TABLET ON THE TONGUE EVERY 8 HOURS NEEDED FOR NAUSEA active Not Available Not Available No t Available oxycodone-ac etaminophen 5 mg-325 mg tablet TAKE 1 TABLET BY MOUTH EVERY 6 HOURS NEEDED FOR PAIN active Not Available Not Available No t Available lorazepam 0.5 mg tablet TAKE 1 TABLET BY MOUTH EVERY 8 HOURS FOR UP TO 10 DAYS NEEDED FOR ANXIETY OR PANIC ATTACKS active Not Available Not Available No t Available prednisone 1 mg tablet active Not Available Not Available No t Available amlodipine 10 mg tablet active Not Available Not Available Not Available prednisone 2.5 mg tablet active Not Available Not Available Not Available lansoprazole 30 mg capsule,aracely yed release active Not Available Not Available Not Available amoxicillin 250 mg capsule TAKE 1 CAPSULE BY MOUTH EVERY 8 HOURS FOR 7 DAYS active Not Available Not Available No t Available ergocalcifer ol (vitamin D2) 1,250 mcg (50,000 unit) capsule active Not Available Not Available Not Available lorazepam 1 mg tablet TAKE 1 TABLET AT BEDTIME NEEDED active Not Available Not Available No t Available ibuprofen 600 mg tablet TAKE 1 TABLET BY MOUTH FOUR TIMES DAILY WITH MEALS NEEDED active Not Available Not Available No t Available losartan 100 mg tablet active Not Available Not Available No t Available clotrimazole 1 % topical cream APPLY A THIN LAYER TOPICALLY TO THE AFFECTED AREA NEEDED TWICE DAILY active Not Available Not Available Not Available oxycodone 5 mg tablet TAKE 1 TABLET BY MOUTH EVERY 4 HOURS NEEDED FOR PAIN active Not Available Not Available No t Available ezetimibe 10 mg tablet active Not Available Not Available No t Available Novolog FlexPen U-100 Insulin aspart 100 unit/mL (3 mL) subcutaneous ADMINISTER UP TO 12 UNITS UNDER THE SKIN THREE TIMES DAILY. MAXIMUM DAILY DOSE IS 36 UNITS active Not Available Not Available Not Available Flovent HFA 110 mcg/actuatio n aerosol inhaler active Not Available Not Available Not Available pregabalin 150 mg capsule active Not Available Not Available Not Available pregabalin 300 mg capsule active Not Available Not Available Not Available chlorhexidin e gluconate 0.12 % mouthwash active Not Available Not Available No t Available Lantus Solostar U-100 Insulin 100 unit/mL (3 mL) subcutaneous pen INJECT 30 UNITS UNDER THE SKIN EVERY DAY active Not Available Not Available No t Available diclofenac 1 % topical gel active Not Available Not Available Not Available Cimzia 400 mg/2 mL (200 mg/mL x 2) subcutaneous syringe kit active Not Available Not Available Not Available Jardiance 10 mg tablet TAKE 1 TABLET BY MOUTH DAILY active Not Available Not Available Not Available Jardiance 25 mg tablet active Not Available Not Available No t Available Repatha Syringe 140 mg/mL subcutaneous syringe active Not Available Not Available Not Available FreeStyle Precision Stephen Strips active Not Available Not Available N ot Available FreeStyle Doyle 2 Sensor kit active Not Available Not Available N ot Available FreeStyle Doyle 2 [place] active Not Available Not Available Not Available Vitals Date Recorded Body temperature Body height Body weight Oxygen saturation Oxygen saturation in Arterial blood by Pulse oximetry Heart rate Respiratory rate Systolic blood pressure Diastolic blood pressure Provider Name and Address Organization Details Last Updated DateTime 5 98 [degF] 157.48 cm 95454.6 g 98 % 98 % 96 /min 14 /min 150 mm[Hg] 90 mm[Hg] Not Available [facility] 11:39:21 Date Recorded Respiratory rate Heart rate Oxygen saturation Oxygen saturation in Arterial blood by Pulse oximetry Body temperature Systolic blood pressure Diastolic blood pressure Provider Name and Address Organization Details Last Updated DateTime 3 18 /min 69 /min 97 % 97 % 98.1 [degF] 159 mm[Hg] 91 mm[Hg] Not Available [facility] production 15:43:31 Social History None recorded. Functional Status None recorded. Mental Status None recorded. Family History Nothing Reported. Medical History No medical history recorded. Gynecological HistoryNo gynecological history recorded. Obstetrics History GPAL:G 0 P 0 0 0 0 Past Encounters Encounter ID Performer Location Encounter Start Date Encounter Closed Date Diagnosis/Indication Diagnosis SNOMED-CT Code Diagnosis ICD10 Code Diagnosis Note [id number] Nahid Chadwick MD [facility] [address] [place] [address] 05/20/2022 15:43:19 05/23/2022 12:19:53 Flank pain 919820832 R10.9 Patient with history of kidney infection presents with flank pain similar to prior infections . However, UA is completely negative for UTI. Differenti al includes kidney stone, MSK pain. For pain control she was given 15mg IM toradol.12 -lead ECG performed for dizziness shows sinus rhythm. No chest pain. Health Concerns Section Related Observation LastModified by Organization Detai ls LastModified Time None Recorded Concern Status LastModified by Organization Details LastModified Time None Recorded Advance Directives Directive None Recorded Payers Insurance Date Sequence Insurance Name Policy Number Policy Ricks Covered Member ID Ricks Member ID Guarantor Name 12/26/2023 1 [facility] - DOS PRIOR TO 2022 - DUAL ELIGIBLE (MEDICARE REPLACEMENT/ADV ANTAGE - HMO) Maria C Luong [id number] Maria C Luong 09/04/2024 1 [facility] - DOS ON OR AFTER 2022 - DUAL ELIGIBLE - RETIREMENT OPTIONS AND ONE CARE (MEDICARE REPLACEMENT/ADV ANTAGE - HMO) Maria C Luong [id number] Maria C Luong Notes Date Note Type Note Provider Name and Address Organization Details Recorded Time 05/20/2022 text/html CRC Nursing Assessment: Reason For Request: Member is experiencing kidney pain. Stone? Has had them in the past and has felt this pain before. Symptoms going on 4 days. Nasuea+dizziness, not sure if related to pain. Chief Complaints: Nausea/Vomiting, Pain PMH: COPD/Asthma, Diabetes, Heart Disease, Hypertension Allergies: Doxycycline Comments: Member calling in to place a referral, identity verified via . Member having lower back, has not had kidney stones but has had a kidney infection before. Member denies urine being dark, cloudy, malodorous but feels like she may have an increase in frequency/urgency. States her po intake is normal. She does have chronic nausea, but it feels different today, she does have prn zofran, but has not taken a dose today, denies vomiting or having diarrhea. Denies fever/chills. Member does have ongoing dizziness today, denies sob and chest pain, does have what sounds to be PVC's, was recently on a loop monitor for 30 days, she sees cardiology the end of this month to discuss results. Member would like to be evaluated in home. Nahid Chadwick MD [address] [facility], [place], [address], [employer] 05/20/2022 15:46:42 OBGyn Episode No OBEpisode recorded.
--- OUTSIDE RECORDS SUMMARY | 2024-09-04 13:45 | XMS_ITS ---
Author Organization [facility] Address [address] [place] [address] Care Team Providers Care Railroader Name Role Phone JUSTO CLIFFORD PA-C Primary Care Provider Un available Tim Dozier Jr REASON FOR VISIT pathology Encounters Encounter Location Date Provider Diagnosis [facility] [address] [place] [address] 11/13/2023 Tim Dozier Jr Plan Of Treatment Next Appt Details Provider Name:Tim tello Jr, 11/04/2024 09:20:00 AM, [address], [address], [place], [address], Progress Notes * RAFAELA WRIGHT ADOB:1970 (53 yo F)Acc No.[id number]:11/13/2023 Patient:?RAFAELA WRIGHT :1970???Age:53 Y???Sex:Female Address:[address] [place] [id number] * true * Date:? Generated for Loretta valentino/Iwona/eTransmitting on:?09/04/2024 01:45 PM EDT
--- OUTSIDE RECORDS SUMMARY | 2024-09-04 13:45 | XMS_ITS | Clinical Summary ---
Author Organization [facility] Address [address] [place] [id number] Care Team Providers Care Vendor Management Specialist Name Role Phone Unavailable Primary Care Provider Unavailabl e Medications losartan (COZAAR) 100 MG tablet TAKE 1 TABLET BY MOUTH DAILY 90 tablet 2 01/06/2022 Active carvedilol (COREG) 25 MG tablet 1 tab twice daily 60 tablet 5 04/28/2022 Active ergocalciferol 1.25 MG (91120 UT) capsuleIndicati ons:Other iron deficiency anemia Take 1 capsule (50,000 Units total) by mouth 1 (one) time per week 13 capsule 07/21/2022 Active olmesartan (BENICAR) 40 MG tablet TAKE ONE TABLET BY MOUTH EVERY DAY (ORIGINAL CONTAINER) 30 tablet 11 05/13/2024 Active Social History Tobacco Use Types Packs/Day Years Used Date Smoking Tobacco: Never Assessed Comments Unknown Sex and Gender Information Value Date Recorded Sex Assigned at Not on file Legal Sex Female 5:20 PM EST Gender Identity Not on file Sexual Orientation Not on file Plan of Treatment Health Maintenance Due Date Last Done Comments Breast Cancer Screening 1970 Hepatitis B Vaccine (1 of 3 - 19+ 3-dose series) 05/25 Colorectal Cancer Screening: Annual FOBT 2020 Colorectal Cancer Screening: Colonoscopy 2020 Colorectal Cancer Screening: Sigmoidoscopy 2020 Pneumococcal Vaccine: 50+ Years (1 of 1 - PCV) 022 Influenza Vaccine (Season Ended) 2024
--- NOTE | 2024-09-04 13:46 | PC.NURSE ---
coming from home with small wound to left buttock. there is a small scabbed area near anus on left buttock. surrounding tissue is swollen, red and firm.
[2024-09-04 14:04] LABS: Glucose, Whole Blood 395 mg/dL (60-115)
[2024-09-04 14:05] LABS: Lactic Acid 1.3 mmol/L (0.5-2.0)
[2024-09-04] MEDS: Insulin Lispro 100 UNIT/ML 3 ML VIAL 10 UNIT SUBCUT (14:05)
[2024-09-04 14:33] LABS: Anion Gap 13 (12-20); Blood Urea Nitrogen 12 mg/dL (9-16); Calcium 8.6 mg/dL (8.4-10.2); Carbon Dioxide 25 mmol/L (22-29); Chloride 102 mmol/L (96-108); Creatinine Clr Calc Pharmacy 125.8; Estimated Glomerular Filt Rate > 60; Glucose Random 386 mg/dL (60-115); Potassium 4.1 mmol/L (3.3-5.1); Sodium 136 mmol/L (135-145)
[2024-09-04] MEDS: iohexoL 350 MG/ML 100 ML INFUS..BTL IV (14:45)
[2024-09-04 14:59] LABS: Glucose, Whole Blood 324 mg/dL (60-115)
[2024-09-04] MEDS: LACTATED RINGERS 2856 ML IV (15:19)
[2024-09-04] MEDS: Piperacillin Sodium/Tazobactam 3.375 GM in 0.9 % Sodium Chloride 50 ML IV ×2 (15:20→19:48)
--- NOTE | 2024-09-04 15:30 | PC.NURSE ---
Patient awake and alert. skin pwd, resp even and non labored. speaking in full, clear sentences. c/o 10/10 pain to left buttock. IV abt and IV fluids infusing as ordered. surgical team at bedside. patient aware of plan of care.
--- NOTE | 2024-09-04 15:30 | P.CONAN_ITS ---
[facility] Active Problems Active Problems: All Active Problems Lumbar spondylosis (Acute) Cervical radiculitis (Acute) Thoracic spondylosis with cord compression (Acute) Lumbar stenosis (Acute) Spinal stenosis (Acute) Post laminectomy syndrome (Acute) Past Medical History Medical History COPD (chronic obstructive pulmonary disease) Hx LEEP (loop electrosurgical excision procedure), cervix, Neuropathy Lumbar spondylosis Cervical radiculitis Lumbar stenosis Myocardial infarction Tobacco abuse Aortic ectasia Cervical radiculopathy Anxiety Restless leg syndrome Hyperlipidemia GERD (gastroesophageal reflux disease) Metabolic syndrome PLMD (periodic limb movement disorder) Obstructive sleep apnea Aortic aneurysm Rheumatoid arthritis Diabetes Fatty liver Coronary artery disease Hypertension Functional capacity: independent ambulation Patient : No Family History Family history of problems with anesthesia: No Surgical History Surgical History Hx of hand surgery History of endometrial ablation History of esophagogastroduodenoscopy (EGD) H/O colonoscopy Hx of heart artery stent History of back surgery Hx of tonsillectomy H/O tubal ligation Hx of cholecystectomy History of Problems with Anesthesia: Yes Social History Social History Alcohol intake: never Patient Tobacco Use Status: Current everyday Tobacco user Cigarette Packs Per Day: 0.5 Cigarettes Per Day: 15 Smoked in Last 30 Days: Yes Use of substances other than those prescribed or required for medical reasons: No Advance Directives: No Advance Directives Information Provided: Yes Patient : No Meds Allergies Allergy/AdvReac Type Severity Reaction Status Date / Time azithromycin [From ZITHROMAX] Allergy Intermediate HIVES & Verified 09/04/24 13:01 RASH bupropion [From WELLBUTRIN] Allergy Mild RASH Verified 11/07/23 08:23 venlafaxine [From EFFEXOR] Allergy Mild RASH Verified 11/07/23 08:23 citalopram [Celexa] Allergy Unknown Unknown Verified 11/07/23 08:23 doxycycline [DOXYCYCLINE] AdvReac Mild NAUSEA & Verified 11/07/23 08:23 VOMITING BuPROPion HCl Allergy Unknown Anaphylaxis Uncoded 12/29/20 12:03 Doxycycline Hyclate Allergy Unknown Unknown Uncoded 12/29/20 12:03 Active Medications: Current Medications Lactated Ringer's (Lr) 1,000 mls @ 0 mls/hr IV .Q0M ESTHELA Last Infusion: 09/04/24 14:38 Dose: Infused Lactated Ringer's (Lr) 2,856 mls @ 2,856 mls/hr 30 ml/kg infuse over 1 hr (2856 ml) IV .Q1H ONE Stop: 09/04/24 16:03 Last Admin: 09/04/24 15:19 Dose: 2,856 mls/hr Vancomycin HCl (Vancomycin/Ns) 2,000 mg in 500 mls @ 250 mls/hr IV ONCE ONE Stop: 09/04/24 17:03 Piperacillin Sod/Tazobactam (Sod 3.375 gm/ Sodium Chloride) 50 mls @ 100 mls/hr IV ONCE ONE Stop: 09/04/24 15:33 Last Admin: 09/04/24 15:20 Dose: 100 mls/hr Clindamycin Phosphate (Cleocin) 900 mg in 50 mls @ 50 mls/hr IV ONCE ONE Stop: 09/04/24 16:03 Home Medications ?Medication ?Instructions ?Recorded ?Confirmed ?Last Taken ?Type albuterol sulfate 2.5 mg/3 mL 2.5 mg inhalation Q4-6H PRN 12/29/20 11/07/23 Unknown History (0.083 %) solution for nebulization Shortness Of Breath albuterol sulfate 90 mcg/actuation 2 puff inhalation Q4H PRN wheezing 12/29/20 11/07/23 Unknown History aerosol inhaler aspirin 81 mg tablet,delayed 1 tab PO DAILY 12/29/20 11/07/23 10/31/23 History release clopidogrel 75 mg tablet (Plavix) 1 tab PO DAILY 12/29/20 11/07/23 10/31/23 History carvedilol 25 mg tablet (Coreg) 25 mg PO BID 08/30/22 11/07/23 Unknown History empagliflozin 25 mg tablet 25 mg PO DAILY 08/30/22 11/07/23 11/03/23 History (Jardiance) ergocalciferol (vitamin D2) 1,250 1,250 mcg PO QWEEK 08/30/22 11/07/23 Unknown History mcg (50,000 unit) capsule (Vitamin D2) evolocumab 140 mg/mL subcutaneous 140 mg subcut Q2W 08/30/22 11/07/23 Unknown History syringe (Repatha Syringe) ezetimibe 10 mg tablet (Zetia) 10 mg PO DAILY 08/30/22 11/07/23 Unknown History insulin glargine 100 unit/mL (3 85 unit subcut BEDTIME 08/30/22 11/07/23 Unknown History mL) subcutaneous pen (Lantus Solostar U-100 Insulin) lansoprazole 30 mg capsule,delayed 30 mg PO BID 08/30/22 11/07/23 Unknown History release (Prevacid) ondansetron 8 mg disintegrating 8 mg PO Q8H PRN nausea 08/30/22 11/07/23 Unknown History tablet prednisone 5 mg tablet 5 mg PO DAILY 08/30/22 11/07/23 Unknown History pregabalin 300 mg capsule 300 mg PO BEDTIME 08/30/22 11/07/23 Unknown History tizanidine 4 mg tablet 4 mg PO BID 08/30/22 11/07/23 Unknown History etanercept 50 mg/mL (1 mL) 50 mg subcut QWEEK 11/06/23 11/07/23 Unknown History subcutaneous pen injector (Enbrel SureClick) glipizide 10 mg tablet, extended 10 mg PO DAILY 11/06/23 11/07/23 Unknown History release 24 hr (Glucotrol XL) nitroglycerin 0.4 mg sublingual 0.4 mg sublingual Q5M PRN Chest 11/06/23 11/07/23 Unknown History tablet Pain oxycodone 5 mg tablet 5 mg PO BID PRN Pain 11/06/23 11/07/23 Unknown History spironolactone 50 mg tablet 50 mg PO DAILY 11/06/23 11/07/23 Unknown History duloxetine 60 mg capsule,delayed 60 mg PO DAILY 11/07/23 11/07/23 Unknown History release (Cymbalta) olmesartan 40 mg tablet 40 mg PO DAILY 11/07/23 11/07/23 Unknown History ropinirole 0.25 mg tablet 0.25 mg PO BID 11/07/23 11/07/23 Unknown History Exam Height,Weight and Vital Signs: Height 5 ft 5 in Weight 95.2 kg Last Vital Signs Temp 98.8 F 09/04/24 12:59 Pulse 110 H 09/04/24 12:59 Resp 18 09/04/24 12:59 BP 115/57 L 09/04/24 12:59 Pulse Ox 93 09/04/24 12:59 O2 Del Method Room Air 09/04/24 12:59 Pertinent Lab Results Pertinent Lab Results: Laboratory Tests 09/04/24 09/04/24 09/04/24 13:39 13:48 14:00 WBC 15.9 H RBC 5.03 Hgb 15.2 Hct 44.5 MCV 88.5 MCH 30.2 MCHC 34.2 RDW 13.2 Plt Count 165 D MPV 9.7 Immature Gran % (Auto) 0.6 H Neut % (Auto) 79.6 H Lymph % (Auto) 12.6 L [place] % (Auto) 6.3 Eos % (Auto) 0.3 Baso % (Auto) 0.6 Lymph # (Auto) 2.0 [place] # (Auto) 1.0 Eos # (Auto) 0.0 Baso # (Auto) 0.1 Abs Immat Gran (auto) 0.10 H Absolute Neuts (auto) 12.7 H Absolute Nucleated RBC 0.000 Nucleated RBC % (auto) 0.0 Sodium Potassium Chloride Carbon Dioxide Anion Gap BUN Creatinine Estim Creat Clear Calc Estimated GFR POC Glucose 395 H* Random Glucose Lactic Acid 1.3 Calcium 09/04/24 09/04/24 14:02 14:55 WBC RBC Hgb Hct MCV MCH MCHC RDW Plt Count MPV Immature Gran % (Auto) Neut % (Auto) Lymph % (Auto) [place] % (Auto) Eos % (Auto) Baso % (Auto) Lymph # (Auto) [place] # (Auto) Eos # (Auto) Baso # (Auto) Abs Immat Gran (auto) Absolute Neuts (auto) Absolute Nucleated RBC Nucleated RBC % (auto) Sodium 136 Potassium 4.1 Chloride 102 Carbon Dioxide 25 Anion Gap 13 BUN 12 Creatinine 0.59 Estim Creat Clear Calc 125.8 Estimated GFR > 60 POC Glucose 324 H Random Glucose 386 H* Lactic Acid Calcium 8.6 D Airway Mallampati Class: III TM Dist: >3cm Neck ROM: Full Heart: RRR Lungs: CTA Assessment and Plan Assessment Anesthesia Assessment: Anesthesia Plan Discussed and Smoking Cess. Discussed Final Anesthetic Review Family History of Problems with Anesthesia: No History of Problems with Anesthesia: Yes ASA Class: III and Emergency Final Preanesthetic Review: Meds/Allgs Chart Reviewed, Consent Obtained/Reviewed and Anes Risks/Benef Reviewed Patient Risk: Intermediate Procedure Risk: Intermediate Anesthetic Plan Anesthetic Plan: GA Disposition: Standard PACU
--- NOTE | 2024-09-04 15:45 | PM.HPGS ---
History of Present Illness History of Present Illness Date of Service: 09/04/24 <Florin Reeves PA-C - Last Filed: 09/04/24 16:20> 09/04/24 <Yovany Zendejas MD - Last Filed: 09/04/24 18:02> Chief complaint: L buttocks wound <Florin Reeves PA-C - Last Filed: 09/04/24 16:20> Narrative: Maria C Luong is a 54 year old female with a history of, HTN, RA, diabetes, hyperlipidemia, coronary artery disease, NH (2018), s/p coronary stent, aortic aneurysm presented to the ED with a 2 day history of worsening pain in her left buttock. Patient states over the weekend she began having fevers chills, decreased appetite. On 09/02 patient began to notice pain in her buttock after a bowel movement. This pain continued to worsen leading her to seek evaluation at [facility]. She is unable to put any pressure on this area. The patient was found to have leukocytosis 15.9, CT was performed showing abscess with gas in the deep perianal space and extending to the contralateral side, suspicious for necrotizing soft tissue infection. She was started on Zosyn and IV fluids in the ED. Patient reports taking Plavix and jardiance daily. She denies any meals today, last meal was dinner last night, 08/2024. Patient endorses cigarette smoking about half pack a day, endorses occasional alcohol use, denies recreational drug use. <Florin Reeves PA-C - Last Filed: 09/04/24 16:20> Review of Systems Constitutional: Constitutional: Reports chills and Reports fever(s) <Florin Reeves PA-C - Last Filed: 09/04/24 16:20> Gastrointestinal: Comments: Significant pain on left buttock <Florin Reeves PA-C - Last Filed: 09/04/24 16:20> PMFSH Past Medical History Medical History: Medical History COPD (chronic obstructive pulmonary disease) Hx LEEP (loop electrosurgical excision procedure), cervix, Neuropathy Lumbar spondylosis Cervical radiculitis Lumbar stenosis Myocardial infarction Tobacco abuse Aortic ectasia Cervical radiculopathy Anxiety Restless leg syndrome Hyperlipidemia GERD (gastroesophageal reflux disease) Metabolic syndrome PLMD (periodic limb movement disorder) Obstructive sleep apnea Aortic aneurysm Rheumatoid arthritis Diabetes Fatty liver Coronary artery disease Hypertension <Florin Reeves PA-C - Last Filed: 09/04/24 16:20> Surgical History Surgical History: Surgical History Hx of hand surgery History of endometrial ablation History of esophagogastroduodenoscopy (EGD) H/O colonoscopy Hx of heart artery stent History of back surgery Hx of tonsillectomy H/O tubal ligation Hx of cholecystectomy <Florin Reeves PA-C - Last Filed: 09/04/24 16:20> Social History Social History: Social History Are you a primary respiratory care practitioner to a significant other at home: No Do you presently have visiting nurse or other home services: No Alcohol intake: never Patient Tobacco Use Status: Current everyday Tobacco user Tobacco use type: Cigarette Cigarette Packs Per Day: 0.5 Cigarettes Per Day: 10 Years Smoked: 40 Smoked in Last 30 Days: Yes Use of substances other than those prescribed or required for medical reasons: No Have you been hit, kicked, punched, or otherwise hurt by someone within the past year? If so, by whom?: No Are you DNR?: No Advance Directives: No Advance Directives Information Provided: Yes Advance Directives on File: No Patient : No : No <Florin Reeves PA-C - Last Filed: 09/04/24 16:20> Meds Allergies/Adverse reactions: Allergies Allergy/AdvReac Type Severity Reaction Status Date / Time azithromycin [From ZITHROMAX] Allergy Intermediate HIVES & Verified 09/04/24 16:09 RASH bupropion [From WELLBUTRIN] Allergy Mild RASH Verified 09/04/24 16:09 venlafaxine [From EFFEXOR] Allergy Mild RASH Verified 09/04/24 16:09 citalopram [Celexa] Allergy Unknown Unknown Verified 09/04/24 16:09 doxycycline [DOXYCYCLINE] AdvReac Mild NAUSEA & Verified 09/04/24 16:09 VOMITING BuPROPion HCl Allergy Severe Anaphylaxis Uncoded 09/04/24 16:09 Doxycycline Hyclate Allergy Unknown Unknown Uncoded 09/04/24 16:09 <Florin Reeves PA-C - Last Filed: 09/04/24 16:20> Active Medications: Current Medications Acetaminophen (Acetaminophen 325 Mg Tablet) 650 mg PO Q6H PRN PRN Reason: Pain, Mild 1-3,fever,headache Calcium Carbonate (Calcium Carbonate 750 Mg Tab.Chew) 750 mg PO Q4H PRN PRN Reason: Heartburn Heparin Sodium (Porcine) (Heparin Sodium,Porcine 5,000 Unit/Ml Vial) 5,000 unit SUBCUT Q8H ESTHELA Lactated Ringer's (Lr) 1,000 mls @ 0 mls/hr IV .Q0M [facility] Last Infusion: 09/04/24 14:38 Dose: Infused Lactated Ringer's (Lr) 2,856 mls @ 2,856 mls/hr 30 ml/kg infuse over 1 hr (2856 ml) IV .Q1H ONE Stop: 09/04/24 16:03 Last Admin: 09/04/24 15:19 Dose: 2,856 mls/hr Vancomycin HCl (Vancomycin/Ns) 2,000 mg in 500 mls @ 250 mls/hr IV ONCE ONE Stop: 09/04/24 17:03 Clindamycin Phosphate (Cleocin) 900 mg in 50 mls @ 50 mls/hr IV ONCE ONE Stop: 09/04/24 16:03 Piperacillin Sod/Tazobactam (Sod 3.375 gm/ Sodium Chloride) 50 mls @ 100 mls/hr IV Q6H [facility] Lactated Ringer's (Lr) 1,000 mls @ 100 mls/hr IVCONT .Q10H [facility] Melatonin (Melatonin 3 Mg Tablet) 6 mg PO BEDTIME PRN PRN Reason: Insomnia Sodium Chloride (0.9 % Sodium Chloride Flush 3 Ml Syringe) 3 ml IVFLUSH QSHIFT ESTHELA <Florin Reeves PA-C - Last Filed: 09/04/24 16:20> Home medications: Home Medications ?Medication ?Instructions ?Recorded ?Confirmed ?Last Taken ?Type albuterol sulfate 2.5 mg/3 mL 2.5 mg inhalation Q4-6H PRN 12/29/20 09/04/24 Unknown History (0.083 %) solution for nebulization Shortness Of Breath albuterol sulfate 90 mcg/actuation 2 puff inhalation Q4H PRN wheezing 12/29/20 09/04/24 Unknown History aerosol inhaler aspirin 81 mg tablet,delayed 1 tab PO DAILY 12/29/20 09/04/24 09/03/24 History release clopidogrel 75 mg tablet (Plavix) 1 tab PO DAILY 12/29/20 09/04/24 09/03/24 History carvedilol 25 mg tablet (Coreg) 25 mg PO BID 08/30/22 09/04/24 09/03/24 History empagliflozin 25 mg tablet 25 mg PO DAILY 08/30/22 09/04/24 09/03/24 History (Jardiance) ergocalciferol (vitamin D2) 1,250 1,000 mcg PO DAILY 08/30/22 09/04/24 09/03/24 History mcg (50,000 unit) capsule (Vitamin D2) evolocumab 140 mg/mL subcutaneous 140 mg subcut Q2W 08/30/22 09/04/24 Unknown History syringe (Repatha Syringe) ezetimibe 10 mg tablet (Zetia) 10 mg PO DAILY 08/30/22 09/04/24 09/03/24 History insulin glargine 100 unit/mL (3 85 unit subcut BEDTIME 08/30/22 09/04/24 09/03/24 History mL) subcutaneous pen (Lantus Solostar U-100 Insulin) lansoprazole 30 mg capsule,delayed 30 mg PO BID 08/30/22 09/04/24 09/03/24 History release (Prevacid) ondansetron 8 mg disintegrating 8 mg PO Q8H PRN nausea 08/30/22 09/04/24 Unknown History tablet prednisone 5 mg tablet 5 mg PO DAILY 08/30/22 09/04/24 09/03/24 History pregabalin 300 mg capsule 300 mg PO BEDTIME 08/30/22 09/04/24 09/03/24 History tizanidine 4 mg tablet 4 mg PO BID 08/30/22 09/04/24 09/03/24 History etanercept 50 mg/mL (1 mL) 50 mg subcut QWEEK 11/06/23 09/04/24 Unknown History subcutaneous pen injector (Enbrel SureClick) glipizide 10 mg tablet, extended 10 mg PO DAILY 11/06/23 09/04/24 09/03/24 History release 24 hr (Glucotrol XL) nitroglycerin 0.4 mg sublingual 0.4 mg sublingual Q5M PRN Chest 11/06/23 09/04/24 Unknown History tablet Pain oxycodone 5 mg tablet 5 mg PO BID PRN Pain 11/06/23 09/04/24 Unknown History spironolactone 50 mg tablet 50 mg PO DAILY 11/06/23 09/04/24 09/03/24 History duloxetine 60 mg capsule,delayed 60 mg PO DAILY 11/07/23 09/04/24 09/03/24 History release (Cymbalta) olmesartan 40 mg tablet 40 mg PO DAILY 11/07/23 09/04/24 09/03/24 History ropinirole 0.25 mg tablet 0.25 mg PO BID 11/07/23 09/04/24 09/03/24 History <Florin Reeves PA-C - Last Filed: 09/04/24 16:20> Physical Exam Vital Signs: Vital Signs: Last Vital Signs Temp 98.8 F 09/04/24 12:59 Pulse 110 H 09/04/24 12:59 Resp 18 09/04/24 12:59 BP 115/57 L 09/04/24 12:59 Pulse Ox 93 09/04/24 12:59 O2 Del Method Room Air 09/04/24 12:59 BMI result Body Mass Index 34.9 <JODIE Nava Last Filed: 09/04/24 16:20> Const: General: no acute distress; No comfortable (Unable to put pressure on left buttock) <JODIE Nava Last Filed: 09/04/24 16:20> Orientation/consciousness: patient oriented x3 <JODIE Nava Last Filed: 09/04/24 16:20> Resp: Effort & Inspection: normal respiratory effort and able to speak in complete sentences <JODIE Nava Last Filed: 09/04/24 16:20> Auscultation: clear to auscultation bilaterally <JODIE Nava Last Filed: 09/04/24 16:20> Cardio: Rate: tachycardic <JODIE Nava Last Filed: 09/04/24 16:20> Rhythm: regular rhythm <Florin Reeves PA-C - Last Filed: 09/04/24 16:20> Heart sounds: S1 normal heart sound present, S2 normal heart sound present, no gallops, no murmurs and no rubs <Florin Reeves PA-C - Last Filed: 09/04/24 16:20> GI: Other: Left buttock: exquisitely tender, significant induration. no evidence of discharge Nontender in the groin <Florin Reeves PA-C - Last Filed: 09/04/24 16:20> Neuro: General: patient oriented x3 <Florin Reeves PA-C - Last Filed: 09/04/24 16:20> Results Results Labs: Short CBC 09/04/24 Range/Units 13:39 WBC 15.9 H (4.8-10.8) X10*3/uL Hgb 15.2 (12.0-16.0) g/dl Hct 44.5 (37.0-47.0) % Plt Count 165 D (160-400) X10*3/uL BMP 09/04/24 14:02 Sodium 136 Potassium 4.1 Chloride 102 Carbon Dioxide 25 BUN 12 Creatinine 0.59 Calcium 8.6 D <Florin Reeves PA-C - Last Filed: 09/04/24 16:20> Assessment and Plan (1) Abscess of deep perineal space: Status: Acute <Florin Reeves PA-C - Last Filed: 09/04/24 16:20> (2) Necrotizing cellulitis: Status: Acute <Florin Reeves PA-C - Last Filed: 09/04/24 16:20> 59 year old female, with diabetes, with pain, swelling and tenderness on the left back near the perianal area Has had poor sugar control the past 2 days CAT scan showing abscess with gas Can not rule out necrotizing soft tissue infection We will proceed with exam under anesthesia, I&D possible debridement in the OR She understands the technique of the planned procedure as well as the risks, benefits, and alternatives <Yovany Zendejas MD - Last Filed: 09/04/24 18:02> 54 year old female with a history of, HTN, RA, diabetes, hyperlipidemia, coronary artery disease, NH (2018), s/p coronary stent, aortic aneurysm presented to the ED with a 2 day history of worsening pain in her buttock. Patient found to have significant leukocytosis. Imaging was reviewed CT scan shows a perianal abscess with gas formation suspicious for a necrotizing soft tissue infection. Exam shows an exquisitely tender left buttock significant with extensive induration. We discussed our plan to bring the patient to the operating room for emergent incision and drainage and possible debridement of the abscess under anesthesia given concern for necrotizing soft tissue infection. Patient is currently hemodynamically stable. We discussed possible risks including infection, bleeding, damage to surrounding areas. Patient agreeable with this plan. Will continue antibiotics and admit for observation. Hospitalist consult ordered for management of patient comorbidities including diabetes. will admit to [facility] after the procedure. I&D w/ possible debridement in OR continue abx pain regimen Hospitalist consult ordered <Florin Reeves PA-C - Last Filed: 09/04/24 16:20> Quality Stroke Does the patient have a stroke diagnosis?: No <Florin Reeves PA-C - Last Filed: 09/04/24 16:20> VTE Prior VTE?: No <Florin Reeves PA-C - Last Filed: 09/04/24 16:20> VTE Risk Level:: Medical - moderate - high <Florin Reeves PA-C - Last Filed: 09/04/24 16:20> VTE Device Contraindication: N/A - Device Ordered <Florin Reeves PA-C - Last Filed: 09/04/24 16:20> VTE Drug Contraindication: N/A - Med Ordered <Florin Reeves PA-C - Last Filed: 09/04/24 16:20> Procedures Date of Service Date of Service: 09/04/24 <Florin Reeves PA-C - Last Filed: 09/04/24 16:20> 09/04/24 <Yovany Zendejas MD - Last Filed: 09/04/24 18:02>
--- NOTE | 2024-09-04 15:52 | PM.EVENT ---
Event Note Date of Service: 09/04/24 Event Note: 54-year-old female, diabetic, note of perianal pain mostly on the left for 2 days now Exam shows severe induration on the left perianal area, marked tenderness, no discharge CAT scan shows gas in the area extending extending contralaterally Likely an abscess but need to rule out necrotizing soft tissue infection I explained to the patient that we need to proceed with exam under anesthesia, I&D, possible debridement of the perianal area I explained the technique of the procedure I reviewed the risks including but not limited to bleeding, infections, postop pain, intensive wound care postop Patient was on Jardiance and Plavix Procedure deemed emergent in view of the risks of rapid progression of a necrotizing soft tissue infection Time Spent With Patient Time: Total time managing care of this patient today ____ minutes.
--- NOTE | 2024-09-04 16:00 | PC.NURSE ---
Patient to OR at this time
--- NOTE | 2024-09-04 16:06 | PC.NURSE ---
report was given to the OR by Esme JENSEN
[2024-09-04] MEDS: Clindamycin Phosphate/D5W 900 MG/50 ML PIGGYBACK 50 MG IV (16:15)
--- NOTE | 2024-09-04 16:20 | PC.NURSE ---
Patient in preop. Last dose of Plavix and Jardiance yesterday at home. Dr. Ko and Dr. Zendejas aware. Case deemed emergent per Dr. Zendejas. No new orders at this time.
[2024-09-04 16:22] LABS: Glucose, Whole Blood 288 mg/dL (60-115)
[2024-09-04] MEDS: vancomycin/NS 2,000 MG/500 ML PLAST..BAG 250 MG IV (16:27)
--- NOTE | 2024-09-04 17:08 | P.OP_ITS ---
Operative Note Operative Note Date of Service: 09/04/24 Narrative: Preop diagnosis: Perianal abscess, question necrotizing soft tissue infection Postop diagnosis: Large perirectal abscess, left, no necrotizing soft tissue infection Procedure: Exam under anesthesia, I&D of left perirectal abscess, counter incision on the right perirectal area Surgeon: Yovany Zendejas, the cardiovascular physician assistant: ARUNA Reeves The patient is a 54-year-old diabetic with note of rudy rectal pain, swelling and tenderness. Her CAT scan in the ED showed an abscess with gas left side extending a little bit to the right of the perirectal area. A necrotizing soft tissue infection could not be ruled out so I explained to her it would be best to proceed with exam under anesthesia, I and D and possible debridement. I reviewed with the technique of this procedure as was the risks, benefits, and alternatives She was brought to the operating room. She was placed in prone vladimir-knife position under general anesthesia via endotracheal tube. A surgical time-out was done. The patient was receiving scheduled antibiotics The buttocks were retracted with wide tape laterally. The perianal area was prepped and draped usual sterile fashion. Examination showed a large area of induration the left perianal towards the buttock. There was no sinuses seen. There is no evidence of any induration on the right side I did a digital rectal exam and there were no indurated areas in the anal canal. She did have large hemorrhoids I made a generous incision on the left perianal area with a blade 15.. This was then carried down through the full-thickness of the skin and subcutaneous fat and I entered a large abscess cavity. Large amounts of pus was drained. Cultures were taken. I probed the area with my finger. There was note of a large defined cavity. The cavity actually did not extend in the posterior midline anteriorly. I examined the soft tissue surrounding the cavity and there was no evidence of any ongoing necrotizing process. There was no significant discharge other than pus I made a small counter incision on the right perianal area. This was carried down deeply into the subcutaneous fat that there was no abscess and this side I irrigated the abscess cavity. Again, there is no evidence of any ongoing necrotizing process I applied iodoform an inch packing on both sides. Dressings were applied. The area was infiltrated with Marcaine 0.5 % for postop analgesia. Dressings were applied and the procedure was completed The patient tolerated procedure well. There were no immediate complications. Initial and final counts of sponges and instruments were correct. Estimated blood loss about 25 cc the patient was extubated without difficulty and transferred to the recovery room with stable vital signs.
--- NOTE | 2024-09-04 18:02 | PM.EVENT ---
Event Note Date of Service: 09/05/24 Event Note: Seen postop Status post exam under anesthesia, I&D of deep perirectal abscess Currently hemodynamically stable Has good pain control I have consulted the hospitalist IV antibiotics Pain management She has packing on both sides - wound care Hold off on Plavix Diet ordered Time Spent With Patient Time: Total time managing care of this patient today ____ minutes.
[2024-09-04] MEDS: Lactated Ringers 1,000 ML 80 ML IVCONT (18:22)
[2024-09-04] MEDS: Morphine Sulfate 4 MG/ML CARTRIDGE IVPUSH (20:09)
[2024-09-04] MEDS: ondansetron HCL 4 MG/2 ML VIAL IVPUSH (20:10)
[2024-09-04 20:11] LABS: Glucose, Whole Blood 276 mg/dL (60-115)
[2024-09-04] MEDS: Acetaminophen 1,000 MG/100 ML PIGGYBACK 400 MG IV (20:15)
--- NOTE | 2024-09-04 20:43 | P.CONHOSP_ITS ---
History of Present Illness Data of Consult Service Date: 09/04/24 Requesting physician: Yovany Zendejas Primary Care Provider: ARUNA Matta HPI Reason for consult: Medical management Patient is a 54-year-old female with a past medical history significant for stage I COPD, HTN, RA, insulin-dependent diabetes, HLD, CAD, history MD 2018 s/p stent, aortic aneurysm, obesity, consulted for medical management, status post I&D left perirectal abscess with counter incision right perirectal area. There was concern for necrotizing soft tissue infection however this was not observed during the I and D, culture from the procedure still pending. She is currently being treated with Zosyn. The patient experienced a fever postoperatively of 103.1, tachycardic with nausea and vomiting. She has had some improvement with Zofran and morphine as well as IV Tylenol. She denies any chest pain, shortness of breath or abdominal pain currently. Review of Systems 2 Constitutional: Constitutional: Reports chills, Reports fever(s) and Denies headache(s) Eyes: Eyes: Denies change in vision and Denies photophobia ENT: Denies headache(s) Cardiovascular: Cardiovascular: Denies chest pain, Denies rapid heart rate, Denies leg edema, Denies lightheadedness and Denies dyspnea Respiratory: Respiratory: Denies cough, Denies dyspnea and Denies wheezing Gastrointestinal: Gastrointestinal: Denies abdominal pain, Denies coffee ground emesis, Reports nausea, Reports vomiting and Denies hematemesis Musculoskeletal: Musculoskeletal: Denies numbness and Denies tingling Integumentary/Breasts: Skin/Breast: Denies rash Neurologic: Denies confusion, Denies headache(s), Denies numbness and Denies tingling Psychiatric: Psychiatric: Denies confusion Endocrine: Endocrine: Reports flushing Allergic/Immunologic: Allergic/Immunologic: Denies wheezing PMFSH Medical History COPD (chronic obstructive pulmonary disease) Hx LEEP (loop electrosurgical excision procedure), cervix, Neuropathy Lumbar spondylosis Cervical radiculitis Lumbar stenosis Myocardial infarction Tobacco abuse Aortic ectasia Cervical radiculopathy Anxiety Restless leg syndrome Hyperlipidemia GERD (gastroesophageal reflux disease) Metabolic syndrome PLMD (periodic limb movement disorder) Obstructive sleep apnea Aortic aneurysm Rheumatoid arthritis Diabetes Fatty liver Coronary artery disease Hypertension Functional capacity: independent ambulation Surgical History Hx of hand surgery History of endometrial ablation History of esophagogastroduodenoscopy (EGD) H/O colonoscopy Hx of heart artery stent History of back surgery Hx of tonsillectomy H/O tubal ligation Hx of cholecystectomy Social History Household Members: Family Housing: House Are you a primary primary care md to a significant other at home: No Do you presently have visiting nurse or other home services: No Alcohol intake: never Comment: OR Patient Tobacco Use Status: Never used Tobacco Tobacco use type: Cigarette Cigarette Packs Per Day: 0.5 Cigarettes Per Day: 10 Years Smoked: 40 Narrative: occasional etoh, smokes 1/2 ppd, no drug use Meds Allergies Allergy/AdvReac Type Severity Reaction Status Date / Time azithromycin [From ZITHROMAX] Allergy Intermediate HIVES & Verified 09/04/24 16:09 RASH bupropion [From WELLBUTRIN] Allergy Mild RASH Verified 09/04/24 16:09 venlafaxine [From EFFEXOR] Allergy Mild RASH Verified 09/04/24 16:09 citalopram [Celexa] Allergy Unknown Unknown Verified 09/04/24 16:09 doxycycline [DOXYCYCLINE] AdvReac Mild NAUSEA & Verified 09/04/24 16:09 VOMITING BuPROPion HCl Allergy Severe Anaphylaxis Uncoded 09/04/24 16:09 Doxycycline Hyclate Allergy Unknown Unknown Uncoded 09/04/24 16:09 Active Medications: Current Medications Acetaminophen (Acetaminophen 325 Mg Tablet) 650 mg PO Q6H PRN PRN Reason: Pain, Mild 1-3,fever,headache Albuterol Sulfate (Albuterol Sulfate 90 Mcg 8 Gm Inhaler) 2 puff INHALE RQ4H PRN PRN Reason: Wheezing Calcium Carbonate (Calcium Carbonate 750 Mg Tab.Chew) 750 mg PO Q4H PRN PRN Reason: Heartburn Carvedilol (Carvedilol 25 Mg Tablet) 25 mg PO BID ESTHELA; Protocol Dextrose (Dextrose 50 % 25 Gm/50 Ml Syringe) 25 gm IVPUSH Q15M PRN; Protocol PRN Reason: per Hypoglycemia Standing Ord. Fentanyl (Fentanyl Citrate/Pf 100 Mcg/2 Ml Vial) 25 mcg IVPUSH Q5M PRN PRN Reason: Pain, Moderate to Severe (Pain Scale 4-10) Stop: 09/04/24 21:58 Glucose (Glucose Gel 15 Gm Gel..Gram.) 15 gm PO Q15M PRN; Protocol PRN Reason: per Hypoglycemia Standing Ord. Heparin Sodium (Porcine) (Heparin Sodium,Porcine 5,000 Unit/Ml Vial) 5,000 unit SUBCUT Q8H ESTHELA Hydromorphone HCl (Hydromorphone Hcl 0.5 Mg/0.5 Ml Syringe) 0.25 mg IVPUSH Q5M PRN PRN Reason: Pain, Moderate to Severe (Pain Scale 4-10) Stop: 09/04/24 21:58 Piperacillin Sod/Tazobactam (Sod 3.375 gm/ Sodium Chloride) 50 mls @ 100 mls/hr IV Q6H [facility] Last Admin: 09/04/24 19:48 Dose: 100 mls/hr Lactated Ringer's (Lr) 1,000 mls @ 80 mls/hr IVCONT .[id number] [facility] Last Admin: 09/04/24 18:22 Dose: 80 mls/hr Insulin Glargine (Insulin Glargine,Hum.Rec.Anlog 100 Unit/Ml 10 Ml Vial) 40 unit SUBCUT BEDTIME [facility] Insulin Human Lispro (Insulin Lispro 100 Unit/Ml 3 Ml Vial) 0 unit SUBCUT QIDACHS [facility]; Protocol Melatonin (Melatonin 3 Mg Tablet) 6 mg PO BEDTIME PRN PRN Reason: Insomnia Morphine Sulfate (Morphine Sulfate 4 Mg/Ml Cartridge) 4 mg IVPUSH Q3H PRN; Protocol PRN Reason: Pain, Severe (Pain Scale 7-10) Last Admin: 09/04/24 20:09 Dose: 4 mg Naloxone HCl (Naloxone Hcl 0.4 Mg/Ml Vial) 0.04 mg IVPUSH Q5M PRN PRN Reason: Excessive sedation or RR < 8 Nitroglycerin (Nitroglycerin 0.4 Mg Tab.Subl) 0.4 mg SUBLINGUAL Q5MX3 PRN PRN Reason: Chest Pain Ondansetron HCl (Ondansetron Hcl 4 Mg/2 Ml Vial) 4 mg IVPUSH ONCE PRN PRN Reason: Nausea and Vomiting Stop: 09/04/24 21:58 Ondansetron HCl (Ondansetron Hcl 4 Mg/2 Ml Vial) 4 mg IVPUSH Q6H PRN PRN Reason: Nausea and Vomiting Last Admin: 09/04/24 20:10 Dose: 4 mg Oxycodone HCl (Oxycodone Hcl Immed Release 5 Mg Tablet) 10 mg PO Q4H PRN PRN Reason: Pain, Moderate(Pain Scale 4-6) Sodium Chloride (0.9 % Sodium Chloride Flush 3 Ml Syringe) 3 ml IVFLUSH QSHIFT ESTHELA Last Admin: 09/04/24 18:19 Dose: Not Given Spironolactone (Spironolactone 25 Mg Tablet) 50 mg PO DAILY ESTHELA; Protocol Home Medications ?Medication ?Instructions ?Recorded ?Confirmed ?Last Taken ?Type albuterol sulfate 2.5 mg/3 mL 2.5 mg inhalation Q4-6H PRN 12/29/20 09/04/24 Unknown History (0.083 %) solution for nebulization Shortness Of Breath albuterol sulfate 90 mcg/actuation 2 puff inhalation Q4H PRN wheezing 12/29/20 09/04/24 Unknown History aerosol inhaler aspirin 81 mg tablet,delayed 1 tab PO DAILY 12/29/20 09/04/24 09/03/24 History release clopidogrel 75 mg tablet (Plavix) 1 tab PO DAILY 12/29/20 09/04/24 09/03/24 History carvedilol 25 mg tablet (Coreg) 25 mg PO BID 08/30/22 09/04/24 09/03/24 History empagliflozin 25 mg tablet 25 mg PO DAILY 08/30/22 09/04/24 09/03/24 History (Jardiance) ergocalciferol (vitamin D2) 1,250 1,000 mcg PO DAILY 08/30/22 09/04/24 09/03/24 History mcg (50,000 unit) capsule (Vitamin D2) evolocumab 140 mg/mL subcutaneous 140 mg subcut Q2W 08/30/22 09/04/24 Unknown History syringe (Repatha Syringe) ezetimibe 10 mg tablet (Zetia) 10 mg PO DAILY 08/30/22 09/04/24 09/03/24 History insulin glargine 100 unit/mL (3 85 unit subcut BEDTIME 05/09/04/24 09/03/24 History mL) subcutaneous pen (Lantus Solostar U-100 Insulin) lansoprazole 30 mg capsule,delayed 30 mg PO BID 08/30/22 09/04/24 09/03/24 History release (Prevacid) ondansetron 8 mg disintegrating 8 mg PO Q8H PRN nausea 08/30/22 09/04/24 Unknown History tablet prednisone 5 mg tablet 5 mg PO DAILY 08/30/22 09/04/24 09/03/24 History pregabalin 300 mg capsule 300 mg PO BEDTIME 08/30/22 09/04/24 09/03/24 History tizanidine 4 mg tablet 4 mg PO BID 08/30/22 09/04/24 09/03/24 History etanercept 50 mg/mL (1 mL) 50 mg subcut QWEEK 11/06/23 09/04/24 Unknown History subcutaneous pen injector (Enbrel SureClick) glipizide 10 mg tablet, extended 10 mg PO DAILY 11/06/23 09/04/24 09/03/24 History release 24 hr (Glucotrol XL) nitroglycerin 0.4 mg sublingual 0.4 mg sublingual Q5M PRN Chest 11/06/23 09/04/24 Unknown History tablet Pain oxycodone 5 mg tablet 5 mg PO BID PRN Pain 11/06/23 09/04/24 Unknown History spironolactone 50 mg tablet 50 mg PO DAILY 11/06/23 09/04/24 09/03/24 History duloxetine 60 mg capsule,delayed 60 mg PO DAILY 11/07/23 09/04/24 09/03/24 History release (Cymbalta) olmesartan 40 mg tablet 40 mg PO DAILY 11/07/23 09/04/24 09/03/24 History ropinirole 0.25 mg tablet 0.25 mg PO BID 11/07/23 09/04/24 09/03/24 History amlodipine 10 mg tablet 10 mg PO DAILY 09/04/24 Unknown History meclizine 25 mg tablet 25 mg PO TID PRN Vertigo 09/04/24 Unknown History semaglutide 0.25 mg or 0.5 mg (2 0.25 mg subcut QWEEK 09/04/24 Unknown History mg/3 mL) subcutaneous pen injector (Ozempic) zolpidem 5 mg tablet 5 mg PO BEDTIME PRN Sleep 09/04/24 Unknown History Physical Exam 2 Vital Signs and Narrative: Vital Signs: Last Vital Signs Temp 103.1 F H 09/04/24 20:00 Pulse 134 H 09/04/24 20:00 Resp 20 09/04/24 20:00 BP 157/83 H 09/04/24 20:00 Pulse Ox 93 09/04/24 20:00 O2 Del Method Nasal Cannula 09/04/24 20:00 O2 Flow Rate 4 09/04/24 20:00 BMI result Body Mass Index 34.0 General: AOx3, appears uncomfortable, nauseous, short responses due to nausea Resp: CTA bilaterally CVS: Tachycardic, normal rhythm GI: +BS, NT, no distention Skin: Warm, dry. mottling appearance on knees - pt reports this is from a burn and chronic Neuro: Cranial nerves II-XII grossly intact bilaterally. Motor grossly intact bilaterally Extremities: No LE edema Psych: Appropriate affect Const: General: No confusion Orientation/consciousness: No confusion Eyes: Direct Ophthalmoscopy: No photophobia Neuro: General: No confusion Results Labs 09/04/24 13:39 09/04/24 14:02 Labs: Laboratory Results - last 24 hr 09/04/24 09/04/24 09/04/24 13:39 13:48 14:00 MCV 88.5 MCH 30.2 MCHC 34.2 RDW 13.2 Plt Count 165 D MPV 9.7 Immature Gran % (Auto) 0.6 H Neut % (Auto) 79.6 H Lymph % (Auto) 12.6 L Rawlins % (Auto) 6.3 Eos % (Auto) 0.3 Baso % (Auto) 0.6 Lymph # (Auto) 2.0 [place] # (Auto) 1.0 Eos # (Auto) 0.0 Baso # (Auto) 0.1 Abs Immat Gran (auto) 0.10 H Absolute Neuts (auto) 12.7 H Absolute Nucleated RBC 0.000 Nucleated RBC % (auto) 0.0 Anion Gap Estim Creat Clear Calc Estimated GFR POC Glucose 395 H* Random Glucose Lactic Acid 1.3 Calcium 09/04/24 09/04/24 09/04/24 14:02 14:55 16:17 MCV MCH MCHC RDW Plt Count MPV Immature Gran % (Auto) Neut % (Auto) Lymph % (Auto) [place] % (Auto) Eos % (Auto) Baso % (Auto) Lymph # (Auto) [place] # (Auto) Eos # (Auto) Baso # (Auto) Abs Immat Gran (auto) Absolute Neuts (auto) Absolute Nucleated RBC Nucleated RBC % (auto) Anion Gap 13 Estim Creat Clear Calc 125.8 Estimated GFR > 60 POC Glucose 324 H 288 H Random Glucose 386 H* Lactic Acid Calcium 8.6 D 09/04/24 20:08 MCV MCH MCHC RDW Plt Count MPV Immature Gran % (Auto) Neut % (Auto) Lymph % (Auto) [place] % (Auto) Eos % (Auto) Baso % (Auto) Lymph # (Auto) [place] # (Auto) Eos # (Auto) Baso # (Auto) Abs Immat Gran (auto) Absolute Neuts (auto) Absolute Nucleated RBC Nucleated RBC % (auto) Anion Gap Estim Creat Clear Calc Estimated GFR POC Glucose 276 H Random Glucose Lactic Acid Calcium Imaging Radiologist's Impressions: Impressions Pelvis CT 09/04/24 13:33 IMPRESSION: Extensive gas within the perianal soft tissues with associated inflammation and minimal fluid. In the absence of prior intervention, findings are worrisome for necrotizing infection. These findings were discussed with Dr. Mendenhall in the emergency room on 09/04/2024 at 3:02 PM. Electronically signed by: Sav Restrepo MD 09/04/2024 03:05 PM EDT RP Assessment and Plan (1) Status post incision and drainage: Status: Acute (2) Abscess of deep perineal space: Status: Acute (3) Postoperative fever: Status: Acute Plan Patient is a 54-year-old female with a past medical history significant for stage I COPD, HTN, RA, insulin-dependent diabetes, HLD, CAD, history MD 2018 s/p stent, aortic aneurysm, obesity, consulted for medical management, status post I&D left perirectal abscess with counter incision right perirectal area. Perirectal abscess, s/p I&D with postoperative fever - temp of 103.1 post op, with nausea and vomiting - improved with Zofran, morphine and IV Tylenol - continue to monitor for fever - currently on Zosyn, consider adding vancomycin if fever persists and follow cultures - plan per surgery Stage I COPD, no acute exacerbation - albuterol as needed HTN - carvedilol, spironolactone, olmesartan RA - continue prednisone, resume injectable medications after discharge Insulin-dependent diabetes - hold p.o. diabetes meds - sliding scale insulin - Lantus 40 units nightly, 50% dose due to lack of p.o. intake, increase when tolerating diet HLD - continue statin CAD/history MD - aspirin, Plavix when appropriate Class 1 obesity - BMI 34.0 - weight loss encouraged Tobacco use disorder - smoking cessation encouraged Thank you for allowing me to participate in the pt's care. We will continue to follow due to postoperative fever and for diabetes management. Please contact the medical team if any questions or concerns.
--- NOTE | 2024-09-04 21:32 | PHA.MEDREC ---
Addendum entered by Tristen Harley [facility] 09/04/24 21:55: med rec reviewed Original Note: Pharmacy Consult ? Medication Reconciliation Pharmacy has reviewed the medication reconciliation done by nursing, however there where a few changes. Medications I add because Patient states she is taking and there are resent claims: Amlodipine 10 mg, Ozempic 0.25 mg every Monday, last dose was 08/31/24 and Zolpidem left off by nurse. Medications I took off med list because patient states she is no longer taking: Albuterol Sulfat 2.5 mg inhalation, Albuterol Sulfate HFA inhaler, Nitroglycerin 0.4 sublingual , and spironolactone 50 mg Left on med rec by nurse. Patient confirmed Enbrel SureClick 50 mg every Monday, last dose 09/02/24, Repatha 140 mg every 2 weeks last dose 09/02/24, and Insulin Glargine 100 units/ml 85 units at bedtime. Patient is not taking Meclizine 25 mg.
[2024-09-04] MEDS: Insulin Glargine,Hum.rec.anlog 100 UNIT/ML 10 ML VIAL 40 UNIT SUBCUT (22:33)
[2024-09-04] MEDS: carvediloL 25 MG TABLET PO (22:34)
[2024-09-04] MEDS: Insulin Lispro 100 UNIT/ML 3 ML VIAL SUBCUT (22:35)
[2024-09-04] MEDS: 0.9 % Sodium Chloride Flush 3 ML SYRINGE IVFLUSH (22:35)
[2024-09-05] VITALS (13 sets, daily range): BP systolic 79–123; BP diastolic 43–67; PULSE 66–100; RESP 14–20; TEMP 36.2–38.3; O2SAT 91–97
[2024-09-05] MEDS: Piperacillin Sodium/Tazobactam 3.375 GM in 0.9 % Sodium Chloride 50 ML IV ×4 (03:01→20:28)
[2024-09-05] MEDS: Acetaminophen 325 MG TABLET 650 MG PO (03:57)
--- NOTE | 2024-09-05 05:11 | PM.EVENT ---
Event Note Date of Service: 09/05/24 Event Note: pt complaining of 10/10 right occipital headache. has a hx of migraines but has not had one in a long time. feels much worse than previous migraines. neurologically intact. will order tramadol for pain and head CT. if headache persistent and head CT negative can try sumatriptan. of note she also had bladder scan of 775cc earlier, did not feel well enough to stand and cannot use purewick. straight cath'd. repeat scan a few hours later with 660cc, she was able to urinate about 300cc and repeat scan with 230cc. consider bruce yvonneh if continued issues with urination. Time Spent With Patient Time: Total time managing care of this patient today ____ minutes.
[2024-09-05] MEDS: ondansetron HCL 4 MG/2 ML VIAL IVPUSH ×2 (05:14→22:48)
[2024-09-05] MEDS: traMADoL HCL 50 MG TABLET PO (05:25)
[2024-09-05 05:47] LABS: Hematocrit 37.3 % (37.0-47.0); Hemoglobin 12.5 g/dl (12.0-16.0); Mean Corpuscular HGB Conc 33.5 g/dl (31.0-35.0); Mean Corpuscular Hemoglobin 29.5 pg (27.0-33.0); Mean Platelet Volume 9.7 fL (9.4-12.3); Platelet Count 130 X10*3/uL (160-400); Red Blood Count 4.24 X10*6/uL (4.20-5.50); Red Cell Distribution Width 13.2 % (11.0-16.0); White Blood Count 10.5 X10*3/uL (4.8-10.8)
[2024-09-05 06:13] LABS: Anion Gap 13 (12-20); Blood Urea Nitrogen 10 mg/dL (9-16); Calcium 8.4 mg/dL (8.4-10.2); Carbon Dioxide 25 mmol/L (22-29); Chloride 101 mmol/L (96-108); Creatinine Clr Calc Pharmacy 130.6; Estimated Glomerular Filt Rate > 60; Glucose Random 383 mg/dL (60-115); Potassium 3.8 mmol/L (3.3-5.1); Sodium 135 mmol/L (135-145)
--- NOTE | 2024-09-05 06:19 | PC.NURSE ---
Late Entry: 1999: Pt reporting chills, and that she is freezing cold, Oral Temperature taken at 103.1, HR of 130, with Nausea and small amount of vomit, and reported 10/[address] Webster made aware. IV tylenol ordered & morphine & zofran given, ice packs applied under armpits and behind neck. POC checked at 276 2017: Dr. Tillman informed of situation, and at bedside. 2030: Pt bladder scanned at 775ml, Dr. Tillman made aware, straight cath ordered. 2143: straight cath placed and drained for 750mls, pt tolerated well. -temperature down to 99.3, HR at 115's, BP: 124/64, report's improvement with headache. -confirmed with Dr. Tillman, ok to give carvedilol, and insulin at this time. 2300: Pt resting comfortably at this time, able to get some sleep, RR even and non-labored in no apparent distress. 0: Pt woke up reporting headache, 10/10 with chills, temp of 100.7- PO tylenol given: reassessed at 100.3 -Bladder scanned at 669 ml, Dr. Tillman made aware -Pt was able to get to commode to urinate about 300ml, dsg to buttocks became saturated with urine, abd pads applied and taped with mesh underwear over. -Post residual void bladder scan with: 230ml, Pe Dr. Tillman no need to straight cath at this time. 7: Head CT ordered for severe headache, pt brought down in wheelchair and tolerated well.
[2024-09-05] MEDS: Morphine Sulfate 4 MG/ML CARTRIDGE IVPUSH (07:20)
[2024-09-05 07:45] LABS: Glucose, Whole Blood 294 mg/dL (60-115)
--- NOTE | 2024-09-05 07:51 | P.PNGS_ITS ---
Subjective Subjective Date of Service: 09/05/24 <Florin Reeves PA-C - Last Filed: 09/05/24 08:16> 09/05/24 <Yovany Zendejas MD - Last Filed: 09/05/24 08:22> Patient reports: still having pain <JODIE Nava Last Filed: 09/05/24 08:16> Interval history: patient reports she is doing okay today. reports significant pain in the area of the I&D. Pain is controlled with current pain regimen. She denies fever/chill at this time. Continues to endorse headache. <JODIE Nava Last Filed: 09/05/24 08:16> Physical Exam 2 Vital Signs: Vital Signs: Last Vital Signs Temp 100.0 F 09/05/24 04:57 Pulse 100 09/05/24 04:00 Resp 18 09/05/24 04:00 BP 123/67 09/05/24 04:00 Pulse Ox 94 09/05/24 04:00 O2 Del Method Nasal Cannula 09/05/24 04:00 O2 Flow Rate 4 09/05/24 04:00 BMI result Body Mass Index 34.0 <Florin Reeves PA-C - Last Filed: 09/05/24 08:16> Const: General: no acute distress, alert and awake <JODIE Nava Last Filed: 09/05/24 08:16> Orientation/consciousness: patient oriented x3 <Florin Reeves PA-C - Last Filed: 09/05/24 08:16> Resp: Effort & Inspection: normal respiratory effort and able to speak in complete sentences <JODIE Nava Last Filed: 09/05/24 08:16> Skin: Other: I&D site dressings changed, mild/mod oozing noted on dressing. Incision site packing in placed, advanced. no additional fluctuance expressed. Improvement in the area of induration. mild area of surrounding erythema <JODIE Nava Last Filed: 09/05/24 08:16> Neuro: General: patient oriented x3 <JODIE Nava Last Filed: 09/05/24 08:16> Objective Data Active Medications Acetaminophen (Acetaminophen 325 Mg Tablet) 975 mg PO Q6H PRN PRN Reason: Pain, Mild 1-3,fever,headache Albuterol Sulfate (Albuterol Sulfate 90 Mcg 8 Gm Inhaler) 2 puff INHALE RQ4H PRN PRN Reason: Wheezing Calcium Carbonate (Calcium Carbonate 750 Mg Tab.Chew) 750 mg PO Q4H PRN PRN Reason: Heartburn Carvedilol (Carvedilol 25 Mg Tablet) 25 mg PO BID [facility]; Protocol Last Admin: 09/04/24 22:34 Dose: 25 mg Documented By: CORNELIO Comments: late d/t n/v, fever around 2100 Dextrose (Dextrose 50 % 25 Gm/50 Ml Syringe) 25 gm IVPUSH Q15M PRN; Protocol PRN Reason: per Hypoglycemia Standing Ord. Docusate Sodium (Docusate Sodium 100 Mg Capsule) 100 mg PO BID [facility] Glucose (Glucose Gel 15 Gm Gel..Gram.) 15 gm PO Q15M PRN; Protocol PRN Reason: per Hypoglycemia Standing Ord. Heparin Sodium (Porcine) (Heparin Sodium,Porcine 5,000 Unit/Ml Vial) 5,000 unit SUBCUT Q8H [facility] Piperacillin Sod/Tazobactam (Sod 3.375 gm/ Sodium Chloride) 50 mls @ 100 mls/hr IV Q6H [facility] Last Infusion: 09/05/24 03:30 Dose: Infused Documented By: CORNELIO Lactated Ringer's (Lr) 1,000 mls @ 80 mls/hr IVCONT .[id number] [facility] Last Infusion: 09/05/24 03:56 Dose: 80 mls/hr Documented By: CORNELIO Insulin Glargine (Insulin Glargine,Hum.Rec.Anlog 100 Unit/Ml 10 Ml Vial) 40 unit SUBCUT BEDTIME [facility] Last Admin: 09/04/24 22:33 Dose: 40 unit Documented By: CORNELIO Insulin Human Lispro (Insulin Lispro 100 Unit/Ml 3 Ml Vial) 0 unit SUBCUT QIDACHS [facility]; Protocol Last Admin: 09/04/24 22:35 Dose: 6 unit Documented By: CORNELIO Melatonin (Melatonin 3 Mg Tablet) 6 mg PO BEDTIME PRN PRN Reason: Insomnia Morphine Sulfate (Morphine Sulfate 4 Mg/Ml Cartridge) 4 mg IVPUSH Q3H PRN; Protocol PRN Reason: Pain, Severe (Pain Scale 7-10) Last Admin: 09/05/24 07:20 Dose: 4 mg Documented By: COLIN Naloxone HCl (Naloxone Hcl 0.4 Mg/Ml Vial) 0.04 mg IVPUSH Q5M PRN PRN Reason: Excessive sedation or RR < 8 Nitroglycerin (Nitroglycerin 0.4 Mg Tab.Subl) 0.4 mg SUBLINGUAL Q5MX3 PRN PRN Reason: Chest Pain Ondansetron HCl (Ondansetron Hcl 4 Mg/2 Ml Vial) 4 mg IVPUSH Q6H PRN PRN Reason: Nausea and Vomiting Last Admin: 09/05/24 05:14 Dose: 4 mg Documented By: CORNELIO Oxycodone HCl (Oxycodone Hcl Immed Release 5 Mg Tablet) 10 mg PO Q4H PRN PRN Reason: Pain, Moderate(Pain Scale 4-6) Sodium Chloride (0.9 % Sodium Chloride Flush 3 Ml Syringe) 3 ml IVFLUSH QSHIFT ESTHELA Last Admin: 09/04/24 22:35 Dose: 3 ml Documented By: CORNELIO Spironolactone (Spironolactone 25 Mg Tablet) 50 mg PO DAILY [facility]; Protocol <Florin Reeves PA-C - Last Filed: 09/05/24 08:16> Labs CBC & Chem 7: 09/05/24 05:03 09/05/24 05:03 <Florin Reeves PA-C - Last Filed: 09/05/24 08:16> Labs: Laboratory Results - last 24 hr 09/04/24 09/04/24 09/04/24 13:39 13:48 14:00 MCV 88.5 MCH 30.2 MCHC 34.2 RDW 13.2 Plt Count 165 D MPV 9.7 Immature Gran % (Auto) 0.6 H Neut % (Auto) 79.6 H Lymph % (Auto) 12.6 L [place] % (Auto) 6.3 Eos % (Auto) 0.3 Baso % (Auto) 0.6 Lymph # (Auto) 2.0 [place] # (Auto) 1.0 Eos # (Auto) 0.0 Baso # (Auto) 0.1 Abs Immat Gran (auto) 0.10 H Absolute Neuts (auto) 12.7 H Absolute Nucleated RBC 0.000 Nucleated RBC % (auto) 0.0 Anion Gap Estim Creat Clear Calc Estimated GFR POC Glucose 395 H* Random Glucose Lactic Acid 1.3 Calcium 09/04/24 09/04/24 09/04/24 14:02 14:55 16:17 MCV MCH MCHC RDW Plt Count MPV Immature Gran % (Auto) Neut % (Auto) Lymph % (Auto) [place] % (Auto) Eos % (Auto) Baso % (Auto) Lymph # (Auto) [place] # (Auto) Eos # (Auto) Baso # (Auto) Abs Immat Gran (auto) Absolute Neuts (auto) Absolute Nucleated RBC Nucleated RBC % (auto) Anion Gap 13 Estim Creat Clear Calc 125.8 Estimated GFR > 60 POC Glucose 324 H 288 H Random Glucose 386 H* Lactic Acid Calcium 8.6 D 09/04/24 09/05/24 09/05/24 20:08 05:03 07:36 MCV 88.0 MCH 29.5 MCHC 33.5 RDW 13.2 Plt Count 130 L MPV 9.7 Immature Gran % (Auto) Neut % (Auto) Lymph % (Auto) [place] % (Auto) Eos % (Auto) Baso % (Auto) Lymph # (Auto) [place] # (Auto) Eos # (Auto) Baso # (Auto) Abs Immat Gran (auto) Absolute Neuts (auto) Absolute Nucleated RBC 0.000 Nucleated RBC % (auto) 0.0 Anion Gap 13 Estim Creat Clear Calc 130.6 Estimated GFR > 60 POC Glucose 276 H 294 H Random Glucose 383 H* Lactic Acid Calcium 8.4 <Florin Reeves PA-C - Last Filed: 09/05/24 08:16> Procedures Date of Service Date of Service: 09/05/24 <Florin Reeves PA-C - Last Filed: 09/05/24 08:16> 09/05/24 <Yovany Zendejas MD - Last Filed: 09/05/24 08:22> Progress Note: A&P Assessment and plan (1) Status post incision and drainage: Status: Acute <Florin Reeves PA-C - Last Filed: 09/05/24 08:16> Assessment and Plan: Admits to pain on incisions Had a fever last night Clinically looks well Follow up on cultures Continue IV antibiotics Plan to remove packing completely tomorrow Appreciate hospitalist follow-up Seen and examined independently <Yovany Zendejas MD - Last Filed: 09/05/24 08:22> Assessment and Plan: 54-year-old female s/p I&D of a perianal abscess on 09/04. Overnight patient developed a fever, likely secondary to the abscess drained yesterday. Patient had CT showing no acute intracranial process. She was found to be retaining urine, and was subsequently straight cathed. Patient is doing okay this morning. Improvement in leukocytosis on AM labs Continues to have significant pain in the I&D site. Also c/o headache. Dressing changed at bedside, showing moderate amounts of discharge. Packing of both incisions was advanced and left in place. New dressings were applied. The area continues to have some area of induration, that is much improved from evaulation yesterday. Minimal sanguenous drainage expressed, no evidence of remaining purulence. Dressings were reapplied. Recommend daily dressing changes Continue current pain regimen Continue IV ABX, routine culture pending maintain adequate glucose controle Diabetic diet as tolerated <Florin Reeves PA-C - Last Filed: 09/05/24 08:16> Time Spent With Patient Time: Total time managing care of this patient today ____ minutes. <Florin Reeves PA-C - Last Filed: 09/05/24 08:16> Quality Stroke Does the patient have a stroke diagnosis?: No <Florin Reeves PA-C - Last Filed: 09/05/24 08:16> VTE Prior VTE?: No <Florin Reeves PA-C - Last Filed: 09/05/24 08:16> VTE Risk Level:: Medical - moderate - high <Florin Reeves PA-C - Last Filed: 09/05/24 08:16> VTE Device Contraindication: N/A - Device Ordered <Florin Reeves PA-C - Last Filed: 09/05/24 08:16> VTE Drug Contraindication: N/A - Med Ordered <Florin Reeves PA-C - Last Filed: 09/05/24 08:16>
--- NOTE | 2024-09-05 08:21 | P.PNIM_ITS ---
Subjective Subjective Date of Service: 09/05/24 Interval History: Headache improved, though still present Left buttock pain at surgical site, moderately well-controlled Continues to not urinate much No nausea, vomiting, abdominal pain Review of Systems Review of Systems: Yes all other systems are reviewed and are negative Physical Exam 2 Vital Signs: Vital Signs: Last Vital Signs Temp 98.8 F 09/05/24 07:55 Pulse 92 09/05/24 07:55 Resp 18 09/05/24 07:55 BP 114/65 09/05/24 07:55 Pulse Ox 93 09/05/24 07:55 O2 Del Method Nasal Cannula 09/05/24 07:55 O2 Flow Rate 4.0 09/05/24 07:55 BMI result Body Mass Index 34.0 General: AOx3, no acute distress Resp: CTA bilaterally CVS: S1, S2, RRR GI: +BS, NT, no distention Skin: Clean dressing on buttocks Neuro: Cranial nerves II-XII grossly intact bilaterally. Motor grossly intact bilaterally Extremities: No edema Psych: Appropriate affect Objective Data Active Medications Acetaminophen (Acetaminophen 325 Mg Tablet) 975 mg PO Q6H PRN PRN Reason: Pain, Mild 1-3,fever,headache Albuterol Sulfate (Albuterol Sulfate 90 Mcg 8 Gm Inhaler) 2 puff INHALE RQ4H PRN PRN Reason: Wheezing Calcium Carbonate (Calcium Carbonate 750 Mg Tab.Chew) 750 mg PO Q4H PRN PRN Reason: Heartburn Carvedilol (Carvedilol 25 Mg Tablet) 25 mg PO BID [facility]; Protocol Last Admin: 09/04/24 22:34 Dose: 25 mg Documented By: CORNELIO Comments: late d/t n/v, fever around 2100 Dextrose (Dextrose 50 % 25 Gm/50 Ml Syringe) 25 gm IVPUSH Q15M PRN; Protocol PRN Reason: per Hypoglycemia Standing Ord. Docusate Sodium (Docusate Sodium 100 Mg Capsule) 100 mg PO BID [facility] Glucose (Glucose Gel 15 Gm Gel..Gram.) 15 gm PO Q15M PRN; Protocol PRN Reason: per Hypoglycemia Standing Ord. Heparin Sodium (Porcine) (Heparin Sodium,Porcine 5,000 Unit/Ml Vial) 5,000 unit SUBCUT Q8H [facility] Piperacillin Sod/Tazobactam (Sod 3.375 gm/ Sodium Chloride) 50 mls @ 100 mls/hr IV Q6H [facility] Last Infusion: 09/05/24 03:30 Dose: Infused Documented By: CORNELIO Lactated Ringer's (Lr) 1,000 mls @ 80 mls/hr IVCONT .[id number] [facility] Last Infusion: 09/05/24 03:56 Dose: 80 mls/hr Documented By: CORNELIO Insulin Glargine (Insulin Glargine,Hum.Rec.Anlog 100 Unit/Ml 10 Ml Vial) 40 unit SUBCUT BEDTIME [facility] Last Admin: 09/04/24 22:33 Dose: 40 unit Documented By: CORNELIO Insulin Human Lispro (Insulin Lispro 100 Unit/Ml 3 Ml Vial) 0 unit SUBCUT QIDACHS [facility]; Protocol Last Admin: 09/04/24 22:35 Dose: 6 unit Documented By: CORNELIO Melatonin (Melatonin 3 Mg Tablet) 6 mg PO BEDTIME PRN PRN Reason: Insomnia Morphine Sulfate (Morphine Sulfate 4 Mg/Ml Cartridge) 4 mg IVPUSH Q3H PRN; Protocol PRN Reason: Pain, Severe (Pain Scale 7-10) Last Admin: 09/05/24 07:20 Dose: 4 mg Documented By: COLIN Naloxone HCl (Naloxone Hcl 0.4 Mg/Ml Vial) 0.04 mg IVPUSH Q5M PRN PRN Reason: Excessive sedation or RR < 8 Nitroglycerin (Nitroglycerin 0.4 Mg Tab.Subl) 0.4 mg SUBLINGUAL Q5MX3 PRN PRN Reason: Chest Pain Ondansetron HCl (Ondansetron Hcl 4 Mg/2 Ml Vial) 4 mg IVPUSH Q6H PRN PRN Reason: Nausea and Vomiting Last Admin: 09/05/24 05:14 Dose: 4 mg Documented By: CORENLIO Oxycodone HCl (Oxycodone Hcl Immed Release 5 Mg Tablet) 10 mg PO Q4H PRN PRN Reason: Pain, Moderate(Pain Scale 4-6) Sodium Chloride (0.9 % Sodium Chloride Flush 3 Ml Syringe) 3 ml IVFLUSH QSHIFT [facility] Last Admin: 09/04/24 22:35 Dose: 3 ml Documented By: CORNELIO Spironolactone (Spironolactone 25 Mg Tablet) 50 mg PO DAILY [facility]; Protocol Labs 09/05/24 05:03 09/05/24 05:03 Labs: Laboratory Results - last 24 hr 09/04/24 09/04/24 09/04/24 13:39 13:48 14:00 MCV 88.5 MCH 30.2 MCHC 34.2 RDW 13.2 Plt Count 165 D MPV 9.7 Immature Gran % (Auto) 0.6 H Neut % (Auto) 79.6 H Lymph % (Auto) 12.6 L [place] % (Auto) 6.3 Eos % (Auto) 0.3 Baso % (Auto) 0.6 Lymph # (Auto) 2.0 [place] # (Auto) 1.0 Eos # (Auto) 0.0 Baso # (Auto) 0.1 Abs Immat Gran (auto) 0.10 H Absolute Neuts (auto) 12.7 H Absolute Nucleated RBC 0.000 Nucleated RBC % (auto) 0.0 Anion Gap Estim Creat Clear Calc Estimated GFR POC Glucose 395 H* Random Glucose Lactic Acid 1.3 Calcium 09/04/24 09/04/24 09/04/24 14:02 14:55 16:17 MCV MCH MCHC RDW Plt Count MPV Immature Gran % (Auto) Neut % (Auto) Lymph % (Auto) [place] % (Auto) Eos % (Auto) Baso % (Auto) Lymph # (Auto) [place] # (Auto) Eos # (Auto) Baso # (Auto) Abs Immat Gran (auto) Absolute Neuts (auto) Absolute Nucleated RBC Nucleated RBC % (auto) Anion Gap 13 Estim Creat Clear Calc 125.8 Estimated GFR > 60 POC Glucose 324 H 288 H Random Glucose 386 H* Lactic Acid Calcium 8.6 D 09/04/24 09/05/24 09/05/24 20:08 05:03 07:36 MCV 88.0 MCH 29.5 MCHC 33.5 RDW 13.2 Plt Count 130 L MPV 9.7 Immature Gran % (Auto) Neut % (Auto) Lymph % (Auto) [place] % (Auto) Eos % (Auto) Baso % (Auto) Lymph # (Auto) [place] # (Auto) Eos # (Auto) Baso # (Auto) Abs Immat Gran (auto) Absolute Neuts (auto) Absolute Nucleated RBC 0.000 Nucleated RBC % (auto) 0.0 Anion Gap 13 Estim Creat Clear Calc 130.6 Estimated GFR > 60 POC Glucose 276 H 294 H Random Glucose 383 H* Lactic Acid Calcium 8.4 Microbiology Microbiology Results: Microbiology 09/04/24 17:17 Gram Stain - Final Abscess Rectal Assessment and Plan (1) Status post incision and drainage: Status: Acute (2) Postoperative fever: Status: Acute (3) Abscess of deep perineal space: Status: Acute Plan Patient is a 54-year-old female with a past medical history significant for HTN, RA, insulin-dependent diabetes, HLD, CAD w/ hx of [place] 2018 s/p stent, and aortic aneurysm who is admitted to the hospital under general surgery services s/p I&D left perirectal abscess with counter incision right perirectal area. Perirectal abscess, s/p I&D with postoperative fever Temp of 103.1 post op, with nausea and vomiting Improved with Zofran, morphine and IV Tylenol Continue to monitor for fever Currently on Zosyn, consider adding vancomycin if fever persists and follow cultures Plan as per surgery Headache Improved some with Tramadol CT of head negative for acute intracranial abnormality Fioricet p.r.n. Urinary retention Bladder scan earlier today showed 775 ml, patient's straight catheterization and drained 750 mL Repeat bladder scan showed 669 mL, urinated 300 mL on commode with post residual void scan showing 230 mL For now bladder scan q.shift, straight cath as necessary If urinary retention persists we will consider placing Gu HTN Continue amlodipine, carvedilol, olmesartan RA Continue prednisone, resume injectable medications after discharge Insulin-dependent diabetes Pt has been hypoglycemic as high as [address] on sliding scale insulin Continue Jardiance, glipizide, Lantus Continue injectable medications upon discharge HLD Continue statin CAD/history [place] Resume aspirin ad Plavix as per seneral surgery Class 1 obesity BMI 34.0 Weight loss encouraged Nicotine dependence Smoking cessation encouraged Thank you for allowing us to participate in the care of this pt. Will continue to follow along with you. Quality Stroke Does the patient have a stroke diagnosis?: No VTE Prior VTE?: No VTE Risk Level:: Medical - moderate - high VTE Device Contraindication: N/A - Device Ordered VTE Drug Contraindication: N/A - Med Ordered
[2024-09-05] MEDS: Spironolactone 25 MG TABLET 50 MG PO (08:23)
[2024-09-05] MEDS: Lactated Ringers 1,000 ML 80 ML IVCONT (08:23)
[2024-09-05] MEDS: Docusate Sodium 100 MG CAPSULE PO ×2 (08:23→21:51)
[2024-09-05] MEDS: carvediloL 25 MG TABLET PO (08:23)
[2024-09-05] MEDS: Insulin Lispro 100 UNIT/ML 3 ML VIAL SUBCUT (08:24)
[2024-09-05] MEDS: 0.9 % Sodium Chloride Flush 3 ML SYRINGE IVFLUSH ×3 (08:33→22:06)
[2024-09-05] MEDS: TiZANidine HCL 4 MG TABLET PO (08:59)
[2024-09-05] MEDS: Empagliflozin 25 MG TABLET PO (08:59)
[2024-09-05] MEDS: DULoxetine HCl 60 MG CAPSULE.DR PO (08:59)
[2024-09-05] MEDS: rOPINIRole HCL 0.25 MG TABLET PO ×2 (08:59→22:36)
[2024-09-05] MEDS: Valsartan 80 MG TABLET 160 MG PO (08:59)
[2024-09-05] MEDS: Ezetimibe 10 MG TABLET PO (08:59)
[2024-09-05] MEDS: Butalb/Acetamin/Caff 50/325/40 TABLET 1 TAB PO (08:59)
[2024-09-05] MEDS: predniSONE 5 MG TABLET PO (08:59)
[2024-09-05] MEDS: polyethylene glycoL 3350 17 GM POWD.PACK PO (09:00)
--- NOTE | 2024-09-05 09:57 | HO.POSTANES ---
Post Anesthesia Evaluation Post Anesthesia Evaluation Date of Service: 09/05/24 Vital Signs: Vital Signs Temp Pulse Resp BP Pulse Ox O2 Del Method O2 Flow Rate 09/05/24 07:55 98.8 F 92 18 114/65 93 Nasal Cannula 4.0 09/05/24 04:57 100.0 F 09/05/24 04:00 100.3 F 100 18 123/67 94 Nasal Cannula 4 09/04/24 23:46 98.0 F 105 H 18 113/66 94 Nasal Cannula 5 09/04/24 22:34 111 H 124/64 09/04/24 22:05 99.3 F 111 H 18 124/64 95 Nasal Cannula 5 Anesthesia: General Mental Status: Awake Pain Control: Satisfactory Nausea/Vomiting: None Hydration: Adequate Anesthesia-Related Issues: No Anes. Related Issues
[2024-09-05 11:13] LABS: Glucose, Whole Blood 224 mg/dL (60-115)
[2024-09-05 12:16] LABS: Albumin Level 2.9 g/dL (3.5-5.0)
[2024-09-05] MEDS: Lactated Ringers 1,000 ML 999 ML IV ×2 (13:04→20:16)
[2024-09-05 15:37] LABS: VBG Base Excess 3.7 mmol/L; VBG HCO3 28 mmol/L (22-26); VBG pCO2 43 mmHg; VBG pH 7.42 (7.32-7.43); VBG pO2 73 mmHg
[2024-09-05 15:39] LABS: Venous Blood Gas Refer to POC result
[2024-09-05 16:14] LABS: Glucose, Whole Blood 149 mg/dL (60-115)
--- NOTE | 2024-09-05 16:20 | MHC.CM.PN ---
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 NEW [facility] PT WILL ARRANGE TRANSPORT
[2024-09-05 16:43] LABS: B Type Natriuretic Peptide 77 pg/mL (<100)
[2024-09-05] MEDS: Acetaminophen 325 MG TABLET 975 MG PO (16:44)
--- NOTE | 2024-09-05 17:48 | PC.NURSE ---
Pt on commode. [place] dizzy and legs felt weak. Assisted back to bed. BP 79/43. O2 sat 79% on room air. Placed back on 4L. Hopsitalist notified. 1L LR bolus ordered and given. BMP, VBG's and BNP ordered and reported to provider. o2 sat improved to 92% on 4L. BP 103/61 long-term through bolus. Incentive spirometer provided but patient had difficulties staying awake to perform. CXR done and results reported to hospitalist. IV fluids D/C'd. Britney VALDOVINOS notified of above. Temp 100.9 @ 4pm. Tylenol given per order. Temp 98.5 on reassessment. Pt voided 300cc concentrated urine @ 1130. PVR bladder scan 389. Hospitalist aware. Pt given more time to void. Attempted to void on commode again but unable and became dizzy again so returned to bed. Bladder scanned for 833. Hospitalist notified and bruce ordered. 18F placed @ 1630. 1000cc concentrated yellow urine drained upon insertion.
[2024-09-05 19:46] LABS: Glucose, Whole Blood 146 mg/dL (60-115)
[2024-09-05 20:58] LABS: Lactic Acid 0.7 mmol/L (0.5-2.0)
[2024-09-05] MEDS: Albumin Human 25 % 100 ML 133.33 ML IV ×2 (21:44→22:36)
[2024-09-05] MEDS: Insulin Glargine,Hum.rec.anlog 100 UNIT/ML 10 ML VIAL 60 UNIT SUBCUT (22:05)
[2024-09-05] MEDS: Pregabalin 150 MG CAPSULE 300 MG PO (22:36)
[2024-09-06] VITALS (12 sets, daily range): BP systolic 92–120; BP diastolic 52–75; PULSE 66–77; RESP 18–20; TEMP 36.2–36.6; O2SAT 90–95
[2024-09-06] MEDS: Butalb/Acetamin/Caff 50/325/40 TABLET 1 TAB PO (03:20)
[2024-09-06] MEDS: Piperacillin Sodium/Tazobactam 3.375 GM in 0.9 % Sodium Chloride 50 ML IV ×4 (03:20→20:42)
[2024-09-06] MEDS: polyethylene glycoL 3350 17 GM POWD.PACK PO (06:11)
[2024-09-06 07:35] LABS: Glucose, Whole Blood 88 mg/dL (60-115)
[2024-09-06] MEDS: Morphine Sulfate 4 MG/ML CARTRIDGE IVPUSH (07:35)
[2024-09-06] MEDS: 0.9 % Sodium Chloride Flush 3 ML SYRINGE IVFLUSH ×3 (07:48→21:24)
--- NOTE | 2024-09-06 07:51 | P.PNGS_ITS ---
Subjective Subjective Date of Service: 09/06/24 <Florin Reeves PA-C - Last Filed: 09/06/24 08:16> 09/06/24 <Yovany Zendejas MD - Last Filed: 09/06/24 13:26> Interval history: patient states she is tired this morning. Reports her pain at the incision site is improved. She has been tolerating diet, eating small meals. C/o headache. Denies BM, passing gas. Denies fever/chills. Patient found to have mild fever yesterday afternoon, along with a few episodes of hypotension. Patient given fluid bolus. She was also found to be retaining urine, now has a bruce catheter in place. Denies shortness of breath or cough. Denies chest pain. <Florin Reeves PA-C - Last Filed: 09/06/24 08:16> Physical Exam 2 Vital Signs: Vital Signs: Last Vital Signs Temp 97.7 F 09/06/24 07:35 Pulse 66 09/06/24 07:35 Resp 18 09/06/24 07:35 BP 105/62 09/06/24 07:35 Pulse Ox 92 09/06/24 07:35 O2 Del Method Nasal Cannula 09/06/24 07:35 O2 Flow Rate 3.0 09/06/24 07:35 BMI result Body Mass Index 34.0 <JODIE Nava Last Filed: 09/06/24 08:16> Const: General: comfortable, no acute distress and tired appearing <Florin Reeves PA-C - Last Filed: 09/06/24 08:16> Orientation/consciousness: patient oriented x3 <JODIE Nava Last Filed: 09/06/24 08:16> Resp: Effort & Inspection: normal respiratory effort and able to speak in complete sentences <Florin Reeves PA-C - Last Filed: 09/06/24 08:16> Skin: Other: incision sites on bilateral buttocks: left - tender. packing in place. Moderate amounts of purulent, sanguenous drainage when packing removed. Induration unchanged from yesterday, small area of induration inferior to the incision site. right- packing in place, mild tenderness. soft. mild amounts of purulent sanguenous discharge. <JODIE Nava Last Filed: 09/06/24 08:16> Neuro: General: patient oriented x3 <Florin Reeves PA-C - Last Filed: 09/06/24 08:16> Objective Data Active Medications Acetaminophen (Acetaminophen 325 Mg Tablet) 975 mg PO Q6H PRN PRN Reason: Pain, Mild 1-3,fever,headache Last Admin: 09/05/24 16:44 Dose: 975 mg Documented By: COLIN Acetaminophen/Butalbital/Caffeine (Butalb/Acetamin/Caff 50/325/40 Tablet) 1 tab PO Q4H PRN PRN Reason: Migraine Headache Last Admin: 09/06/24 03:20 Dose: 1 tab Documented By: ROBYN Albuterol Sulfate (Albuterol Sulfate 90 Mcg 8 Gm Inhaler) 2 puff INHALE RQ4H PRN PRN Reason: Wheezing Calcium Carbonate (Calcium Carbonate 750 Mg Tab.Chew) 750 mg PO Q4H PRN PRN Reason: Heartburn Dextrose (Dextrose 50 % 25 Gm/50 Ml Syringe) 25 gm IVPUSH Q15M PRN; Protocol PRN Reason: per Hypoglycemia Standing Ord. Docusate Sodium (Docusate Sodium 100 Mg Capsule) 100 mg PO BID [facility] Last Admin: 09/05/24 21:51 Dose: 100 mg Documented By: ROBYN Duloxetine HCl (Duloxetine Hcl 60 Mg Capsule.Dr) 60 mg PO DAILY [facility] Last Admin: 09/05/24 08:59 Dose: 60 mg Documented By: COLIN Ezetimibe (Ezetimibe 10 Mg Tablet) 10 mg PO DAILY [facility] Last Admin: 09/05/24 08:59 Dose: 10 mg Documented By: COLIN Empagliflozin (Empagliflozin 25 Mg Tablet) 25 mg PO DAILY [facility] Last Admin: 09/05/24 08:59 Dose: 25 mg Documented By: COLIN Glipizide (Glipizide Xl 10 Mg Tab.Er.24) 10 mg PO DAILY [facility] Last Admin: 09/05/24 13:00 Dose: Not Given Documented By: COLIN Non-Admin Reason: hold per PA. not eating lunch. Glucose (Glucose Gel 15 Gm Gel..Gram.) 15 gm PO Q15M PRN; Protocol PRN Reason: per Hypoglycemia Standing Ord. Heparin Sodium (Porcine) (Heparin Sodium,Porcine 5,000 Unit/Ml Vial) 5,000 unit SUBCUT Q8H [facility] Piperacillin Sod/Tazobactam (Sod 3.375 gm/ Sodium Chloride) 50 mls @ 100 mls/hr IV Q6H [facility] Last Infusion: 09/06/24 03:55 Dose: Infused Documented By: ROBYN Lactated Ringer's (Lr) 1,000 mls @ 80 mls/hr IVCONT .[id number] [facility] Last Infusion: 09/05/24 20:03 Dose: Infused Documented By: ROBYN Insulin Glargine (Insulin Glargine,Hum.Rec.Anlog 100 Unit/Ml 10 Ml Vial) 60 unit SUBCUT BEDTIME [facility] Last Admin: 09/05/24 22:05 Dose: 60 unit Documented By: ROBYN Insulin Human Lispro (Insulin Lispro 100 Unit/Ml 3 Ml Vial) 0 unit SUBCUT QIDACHS [facility]; Protocol Last Admin: 09/06/24 07:49 Dose: Not Given Documented By: COLIN Non-Admin Reason: No Insulin Coverage Melatonin (Melatonin 3 Mg Tablet) 6 mg PO BEDTIME PRN PRN Reason: Insomnia Morphine Sulfate (Morphine Sulfate 4 Mg/Ml Cartridge) 4 mg IVPUSH Q3H PRN; Protocol PRN Reason: Pain, Severe (Pain Scale 7-10) Last Admin: 09/06/24 07:35 Dose: 4 mg Documented By: COLIN Naloxone HCl (Naloxone Hcl 0.4 Mg/Ml Vial) 0.04 mg IVPUSH Q5M PRN PRN Reason: Excessive sedation or RR < 8 Nitroglycerin (Nitroglycerin 0.4 Mg Tab.Subl) 0.4 mg SUBLINGUAL Q5MX3 PRN PRN Reason: Chest Pain Ondansetron HCl (Ondansetron Hcl 4 Mg/2 Ml Vial) 4 mg IVPUSH Q6H PRN PRN Reason: Nausea and Vomiting Last Admin: 09/05/24 22:48 Dose: 4 mg Documented By: ROBYN Oxycodone HCl (Oxycodone Hcl Immed Release 5 Mg Tablet) 10 mg PO Q4H PRN PRN Reason: Pain, Moderate(Pain Scale 4-6) Prednisone (Prednisone 5 Mg Tablet) 5 mg PO DAILY [facility] Last Admin: 09/05/24 08:59 Dose: 5 mg Documented By: COLIN Pregabalin (Pregabalin 150 Mg Capsule) 300 mg PO BEDTIME [facility] Last Admin: 09/05/24 22:36 Dose: 300 mg Documented By: ROBYN Ropinirole HCl (Ropinirole Hcl 0.25 Mg Tablet) 0.25 mg PO BID [facility] Last Admin: 09/05/24 22:36 Dose: 0.25 mg Documented By: ROBYN Sodium Chloride (0.9 % Sodium Chloride Flush 3 Ml Syringe) 3 ml IVFLUSH QSHIFT [facility] Last Admin: 09/06/24 07:48 Dose: 3 ml Documented By: COLIN Tizanidine HCl (Tizanidine Hcl 4 Mg Tablet) 4 mg PO BID [facility] Last Admin: 09/05/24 22:36 Dose: Not Given Documented By: ROBYN Non-Admin Reason: Patient Refused Zolpidem Tartrate (Zolpidem Tartrate 5 Mg Tablet) 5 mg PO BEDTIME PRN PRN Reason: Sleep <Florin Reeves PA-C - Last Filed: 09/06/24 08:16> Labs CBC & Chem 7: 09/05/24 05:03 09/05/24 05:03 <Folrin Reeves PA-C - Last Filed: 09/06/24 08:16> Labs: Laboratory Results - last 24 hr 09/05/24 09/05/24 09/05/24 05:03 11:08 15:28 VBG pH VBG pCO2 VBG pO2 VBG HCO3 VBG O2 Saturation VBG Base Excess POC Glucose 224 H Lactic Acid B-Natriuretic Peptide 77 Albumin 2.9 L 09/05/24 09/05/24 09/05/24 15:33 16:01 19:42 VBG pH 7.42 VBG pCO2 43 VBG pO2 73 VBG HCO3 28 H VBG O2 Saturation 97.0 VBG Base Excess 3.7 POC Glucose 149 H 146 H Lactic Acid B-Natriuretic Peptide Albumin 09/05/24 09/06/24 20:39 07:30 VBG pH VBG pCO2 VBG pO2 VBG HCO3 VBG O2 Saturation VBG Base Excess POC Glucose 88 Lactic Acid 0.7 B-Natriuretic Peptide Albumin <lForin Reeves PA-C - Last Filed: 09/06/24 08:16> Microbiology Microbiology Results: Microbiology 09/04/24 15:12 Blood Culture - Preliminary Blood - Venous No growth after 24 hours. 09/04/24 15:12 Blood Culture - Preliminary Blood - Venous No growth after 24 hours. 09/04/24 17:17 Gram Stain - Final Abscess Rectal Routine Culture - Preliminary No growth to date. <Florin Reeves PA-C - Last Filed: 09/06/24 08:16> Procedures Date of Service Date of Service: 09/06/24 <Florin Reeves PA-C - Last Filed: 09/06/24 08:16> 09/06/24 <Yovany Zendejas MD - Last Filed: 09/06/24 13:26> Progress Note: A&P Assessment and plan (1) Perirectal abscess: Status: Acute <Florin Reeves PA-C - Last Filed: 09/06/24 08:16> Assessment and Plan: Status post I&D Feels much better No further fever since yesterday afternoon Clinically looks well Much less pain Packings removed Good wound care Perianal hygiene She says she feels well overall IV antibiotics will discuss with hospitalist service re discharge planning Seen and examined independently <Yovany Zendejas MD - Last Filed: 09/06/24 13:26> (2) Status post incision and drainage: Status: Acute <Florin Reeves PA-C - Last Filed: 09/06/24 08:16> Assessment and Plan: 54- year old female POD2 s/p I&D or perianal abscess. Patient doing okay this morning, pain is improving, patient feels very lethargic. Yesterday afternoon, patient was found to have a mild fever and was asymptomatically hypotensive and was given bolus with improvement. Patient is normotensive and afebrile this morning. She was also found to be retaining urine, bruce catheter was inserted per hospitalist team. Dressing changed at bedside. Patient has some increased drainage from site, quality is sanguenous with some purulence. The area is mostly soft, a small area of induration noted inferior to the left incision site, unchanged from yesterday. Packing was removed at bedside today and the wound was redressed. Routine culture remains pending. Recommend daily dressing changes and wound care. Continue antibiotics Sitz baths Regular diet as tolerated ambulation as tolerated Continue pain regimen <Florin Reeves PA-C - Last Filed: 09/06/24 08:16> Time Spent With Patient Time: Total time managing care of this patient today ____ minutes. <Florin Reeves PA-C - Last Filed: 09/06/24 08:16> Quality Stroke Does the patient have a stroke diagnosis?: No <Florin Reeves PA-C - Last Filed: 09/06/24 08:16> VTE Prior VTE?: No <Florin Reeves PA-C - Last Filed: 09/06/24 08:16> VTE Risk Level:: Medical - moderate - high <Florin Reeves PA-C - Last Filed: 09/06/24 08:16> VTE Device Contraindication: N/A - Device Ordered <Florin Reeves PA-C - Last Filed: 09/06/24 08:16> VTE Drug Contraindication: N/A - Med Ordered <Florin Reeves PA-C - Last Filed: 09/06/24 08:16>
[2024-09-06] MEDS: oxyCODONE HCl Immed Release 5 MG TABLET 10 MG PO ×2 (08:40→13:16)
[2024-09-06] MEDS: DULoxetine HCl 60 MG CAPSULE.DR PO (09:34)
[2024-09-06] MEDS: Docusate Sodium 100 MG CAPSULE PO ×2 (09:35→20:41)
[2024-09-06] MEDS: rOPINIRole HCL 0.25 MG TABLET PO ×2 (09:35→20:41)
[2024-09-06] MEDS: TiZANidine HCL 4 MG TABLET PO ×2 (09:35→20:41)
[2024-09-06] MEDS: Ezetimibe 10 MG TABLET PO (09:35)
[2024-09-06] MEDS: Empagliflozin 25 MG TABLET PO (09:36)
[2024-09-06] MEDS: predniSONE 5 MG TABLET PO (09:36)
[2024-09-06] MEDS: Heparin Sodium,Porcine 5,000 UNIT/ML VIAL 5000 UNIT SUBCUT ×2 (10:18→17:29)
--- NOTE | 2024-09-06 11:11 | P.PNIM_ITS ---
Subjective Subjective Date of Service: 09/06/24 Interval History: Continues to have pain in buttock, similar to yesterday No longer experiencing headache Overall feels better than yesterday Complains of some chest tightness with inspiration, but no SOB or difficulty breathing, no cough Pt did have hypotension yesterday and received both IVF and albumin CXR negative for pneumonia, but with possible mild interstitial edema, BNP WNL BNP and lactic acid WNL Review of Systems Negative except for that which is stated in the HPI Physical Exam 2 Vital Signs: Vital Signs: Last Vital Signs Temp 97.7 F 09/06/24 07:35 Pulse 66 09/06/24 07:35 Resp 18 09/06/24 07:35 BP 105/62 09/06/24 07:35 Pulse Ox 92 09/06/24 07:35 O2 Del Method Nasal Cannula 09/06/24 07:35 O2 Flow Rate 3.0 09/06/24 07:35 BMI result Body Mass Index 34.0 Objective Data Active Medications Acetaminophen (Acetaminophen 325 Mg Tablet) 975 mg PO Q6H PRN PRN Reason: Pain, Mild 1-3,fever,headache Last Admin: 09/05/24 16:44 Dose: 975 mg Documented By: COLIN Acetaminophen/Butalbital/Caffeine (Butalb/Acetamin/Caff 50/325/40 Tablet) 1 tab PO Q4H PRN PRN Reason: Migraine Headache Last Admin: 09/06/24 03:20 Dose: 1 tab Documented By: ROBYN Albuterol Sulfate (Albuterol Sulfate 90 Mcg 8 Gm Inhaler) 2 puff INHALE RQ4H PRN PRN Reason: Wheezing Calcium Carbonate (Calcium Carbonate 750 Mg Tab.Chew) 750 mg PO Q4H PRN PRN Reason: Heartburn Dextrose (Dextrose 50 % 25 Gm/50 Ml Syringe) 25 gm IVPUSH Q15M PRN; Protocol PRN Reason: per Hypoglycemia Standing Ord. Docusate Sodium (Docusate Sodium 100 Mg Capsule) 100 mg PO BID [facility] Last Admin: 09/06/24 09:35 Dose: 100 mg Documented By: LINWOOD Duloxetine HCl (Duloxetine Hcl 60 Mg Capsule.) 60 mg PO DAILY [facility] Last Admin: 09/06/24 09:34 Dose: 60 mg Documented By: LINWOOD Ezetimibe (Ezetimibe 10 Mg Tablet) 10 mg PO DAILY [facility] Last Admin: 09/06/24 09:35 Dose: 10 mg Documented By: LINWOOD Empagliflozin (Empagliflozin 25 Mg Tablet) 25 mg PO DAILY [facility] Last Admin: 09/06/24 09:36 Dose: 25 mg Documented By: LINWOOD Glipizide (Glipizide Xl 10 Mg Tab.Er.24) 10 mg PO DAILY [facility] Last Admin: 09/05/24 13:00 Dose: Not Given Documented By: COLIN Non-Admin Reason: hold per PA. not eating lunch. Glucose (Glucose Gel 15 Gm Gel..Gram.) 15 gm PO Q15M PRN; Protocol PRN Reason: per Hypoglycemia Standing Ord. Heparin Sodium (Porcine) (Heparin Sodium,Porcine 5,000 Unit/Ml Vial) 5,000 unit SUBCUT Q8H [facility] Last Admin: 09/06/24 10:18 Dose: 5,000 unit Documented By: LINWOOD Piperacillin Sod/Tazobactam (Sod 3.375 gm/ Sodium Chloride) 50 mls @ 100 mls/hr IV Q6H [facility] Last Infusion: 09/06/24 10:21 Dose: Infused Documented By: COLIN Lactated Ringer's (Lr) 1,000 mls @ 80 mls/hr IVCONT .[id number] [facility] Last Infusion: 09/05/24 20:03 Dose: Infused Documented By: ROBYN Insulin Glargine (Insulin Glargine,Hum.Rec.Anlog 100 Unit/Ml 10 Ml Vial) 60 unit SUBCUT BEDTIME [facility] Last Admin: 09/05/24 22:05 Dose: 60 unit Documented By: ROBYN Insulin Human Lispro (Insulin Lispro 100 Unit/Ml 3 Ml Vial) 0 unit SUBCUT QIDACHS [facility]; Protocol Last Admin: 09/06/24 07:49 Dose: Not Given Documented By: COLIN Non-Admin Reason: No Insulin Coverage Melatonin (Melatonin 3 Mg Tablet) 6 mg PO BEDTIME PRN PRN Reason: Insomnia Morphine Sulfate (Morphine Sulfate 4 Mg/Ml Cartridge) 4 mg IVPUSH Q3H PRN; Protocol PRN Reason: Pain, Severe (Pain Scale 7-10) Last Admin: 09/06/24 07:35 Dose: 4 mg Documented By: COLIN Naloxone HCl (Naloxone Hcl 0.4 Mg/Ml Vial) 0.04 mg IVPUSH Q5M PRN PRN Reason: Excessive sedation or RR < 8 Nitroglycerin (Nitroglycerin 0.4 Mg Tab.Subl) 0.4 mg SUBLINGUAL Q5MX3 PRN PRN Reason: Chest Pain Ondansetron HCl (Ondansetron Hcl 4 Mg/2 Ml Vial) 4 mg IVPUSH Q6H PRN PRN Reason: Nausea and Vomiting Last Admin: 09/05/24 22:48 Dose: 4 mg Documented By: ROBYN Oxycodone HCl (Oxycodone Hcl Immed Release 5 Mg Tablet) 10 mg PO Q4H PRN PRN Reason: Pain, Moderate(Pain Scale 4-6) Last Admin: 09/06/24 08:40 Dose: 10 mg Documented By: ALICE Prednisone (Prednisone 5 Mg Tablet) 5 mg PO DAILY [facility] Last Admin: 09/06/24 09:36 Dose: 5 mg Documented By: LINWOOD Pregabalin (Pregabalin 150 Mg Capsule) 300 mg PO BEDTIME [facility] Last Admin: 09/05/24 22:36 Dose: 300 mg Documented By: ROBYN Ropinirole HCl (Ropinirole Hcl 0.25 Mg Tablet) 0.25 mg PO BID [facility] Last Admin: 09/06/24 09:35 Dose: 0.25 mg Documented By: LINWOOD Sodium Chloride (0.9 % Sodium Chloride Flush 3 Ml Syringe) 3 ml IVFSH [facility] Last Admin: 09/06/24 07:48 Dose: 3 ml Documented By: COLIN Tizanidine HCl (Tizanidine Hcl 4 Mg Tablet) 4 mg PO BID [facility] Last Admin: 09/06/24 09:35 Dose: 4 mg Documented By: LINWOOD Zolpidem Tartrate (Zolpidem Tartrate 5 Mg Tablet) 5 mg PO BEDTIME PRN PRN Reason: Sleep Labs 09/05/24 05:03 09/05/24 05:03 Labs: Laboratory Results - last 24 hr 09/05/24 09/05/24 09/05/24 05:03 11:08 15:28 VBG pH VBG pCO2 VBG pO2 VBG HCO3 VBG O2 Saturation VBG Base Excess POC Glucose 224 H Lactic Acid B-Natriuretic Peptide 77 Albumin 2.9 L 09/05/24 09/05/24 09/05/24 15:33 16:01 19:42 VBG pH 7.42 VBG pCO2 43 VBG pO2 73 VBG HCO3 28 H VBG O2 Saturation 97.0 VBG Base Excess 3.7 POC Glucose 149 H 146 H Lactic Acid B-Natriuretic Peptide Albumin 09/05/24 09/06/24 20:39 07:30 VBG pH VBG pCO2 VBG pO2 VBG HCO3 VBG O2 Saturation VBG Base Excess POC Glucose 88 Lactic Acid 0.7 B-Natriuretic Peptide Albumin Microbiology Microbiology Results: Microbiology 09/04/24 17:17 Gram Stain - Final Abscess Rectal Routine Culture - Preliminary Enterococcus/Streptococcus sp 09/04/24 15:12 Blood Culture - Preliminary Blood - Venous No growth after 24 hours. 09/04/24 15:12 Blood Culture - Preliminary Blood - Venous No growth after 24 hours. Assessment and Plan (1) Perirectal abscess: Status: Acute (2) Status post incision and drainage: Status: Acute Plan Patient is a 54-year-old female with a past medical history significant for HTN, RA, insulin-dependent diabetes, HLD, CAD w/ hx of 2017 s/p stent, and aortic aneurysm who is admitted to the hospital under general surgery services s/p I&D left perirectal abscess with counter incision right perirectal area. Perirectal abscess, s/p I&D with postoperative fever Temp of 103.1 post op on 09/04 with nausea and vomiting, elevated again at 100.9 on 09/05 Improved with Zofran, morphine and IV Tylenol Currently on Zosyn, cultures positive for Enterococcus/Streptococcus Plan as per surgery Postop hypotension BP has been as low 79/43 Pt asymptomatic, no lightheadedness or dizziness Pt received IVF boluses x2.5L, albumin Hold amlodipine, carvedilol, and olmesartan for now Continue to monitor BP closely Urinary retention Pt with post void urinary retention requiring multiple straight caths Gu placed yesterday Will d/c Gu today and attempt voiding trial Hypoxia Pt has been hypoxic at 79% on RA Has been on 4 L NC overnight postop, currently on 3L during the day Denies SOB, difficulty breathing, or cough CXR negative for pneumonia but with question of mild interstitial edema; BNP WNL Hx of COPD, noncompliant with home inhalers and nebulizer; not in acute exacerbation DuoNebs p.r.n. Titrate supplemental O2 >92, wean as tolerated Encourage incentive spirometry Headache/migraine CT of head negative for acute intracranial abnormality Resolved with Fioricet Fioricet p.r.n. RA Continue prednisone, resume injectable medications after discharge Insulin-dependent diabetes Pt has been hypoglycemic as high as [address] on sliding scale insulin Continue Jardiance and Lantus Hold glipizide for now as pt still with reduced p.o. intake Continue injectable medications upon discharge HLD Continue statin CAD/history GA Resume aspirin ad Plavix as per general surgery Class 1 obesity BMI 34.0 Weight loss encouraged Nicotine dependence Smoking cessation encouraged Thank you for allowing us to participate in the care of this pt. Will continue to follow along with you. Quality Stroke Does the patient have a stroke diagnosis?: No VTE Prior VTE?: No VTE Risk Level:: Medical - moderate - high VTE Device Contraindication: N/A - Device Ordered VTE Drug Contraindication: N/A - Med Ordered
[2024-09-06 11:27] LABS: Glucose, Whole Blood 130 mg/dL (60-115)
[2024-09-06] MEDS: Albuterol/Iprat 2.5/0.5MG 3 ML AMPUL.NEB INHALE (11:32)
[2024-09-06] MEDS: Lactated Ringers 500 ML 999 ML IV (12:06)
--- NOTE | 2024-09-06 13:26 | PM.EVENT ---
Event Note Date of Service: 09/06/24 Event Note: Seen on afternoon rounds Feels well this afternoon Says she is comfortable Looks well I&D site we examined -no residual fluctuance, I&D site open, some scanty drainage Continue wound care IV antibiotics Possible home tomorrow or Monday Follow up on cultures Time Spent With Patient Time: Total time managing care of this patient today ____ minutes.
--- NOTE | 2024-09-06 14:03 | MHC.CM.PN ---
PT NOT YET MEDICALLY CLEAR, STILL REQUIRING IV ABX AND WOUND CARE POTENTIAL WEEKEND DC, HOME ? [facility]
[2024-09-06 16:13] LABS: Glucose, Whole Blood 143 mg/dL (60-115)
[2024-09-06] MEDS: Acetaminophen 325 MG TABLET 975 MG PO (16:34)
--- NOTE | 2024-09-06 18:42 | PC.NURSE ---
Gu removed at 1300. Voided 700cc @1630. Tolerated sitz bath for 5 minutes. Dressing reapplied. Sat up in chair for 2 hours. O2 sat 95% on room air up in chair. When back to bed desated to 85% on room air. O2 reapplied 3L, 92%. Pt reports she wears CPAP at home for sleep apnea. [facility] notified. CPAP ordered, though patient states she will not wear to bed.
[2024-09-06 19:48] LABS: Glucose, Whole Blood 148 mg/dL (60-115)
[2024-09-06] MEDS: Pregabalin 150 MG CAPSULE 300 MG PO (20:40)
[2024-09-06] MEDS: Insulin Glargine,Hum.rec.anlog 100 UNIT/ML 10 ML VIAL 60 UNIT SUBCUT (20:41)
[2024-09-07] MEDS: Piperacillin Sodium/Tazobactam 3.375 GM in 0.9 % Sodium Chloride 50 ML IV ×2 (02:44→09:01)
[2024-09-07] MEDS: Heparin Sodium,Porcine 5,000 UNIT/ML VIAL 5000 UNIT SUBCUT ×2 (02:44→10:05)
[2024-09-07 03:32] VITALS: BP 111/68; PULSE 80; RESP 20; TEMP 37.2; O2SAT 96
[2024-09-07] MEDS: Acetaminophen 325 MG TABLET 975 MG PO (05:38)
[2024-09-07 07:11] VITALS: BP 120/71; PULSE 65; RESP 18; TEMP 36.1; O2SAT 96
[2024-09-07 07:40] LABS: Glucose, Whole Blood 95 mg/dL (60-115)
--- NOTE | 2024-09-07 08:29 | P.PNIM_ITS ---
Subjective Subjective Date of Service: 09/07/24 Interval History: improving Physical Exam 2 Vital Signs: Vital Signs: Last Vital Signs Temp 96.9 F 09/07/24 07:11 Pulse 65 09/07/24 07:11 Resp 18 09/07/24 07:11 BP 120/71 09/07/24 07:11 Pulse Ox 96 09/07/24 07:11 O2 Del Method Nasal Cannula 09/07/24 07:11 O2 Flow Rate 4.0 09/07/24 07:11 BMI result Body Mass Index 34.0 General: AOx3, no acute distress Resp: CTA bilaterally CVS: S1, S2, RRR GI: +BS, NT, no distention Skin: Clean dressing on buttocks Neuro: Cranial nerves II-XII grossly intact bilaterally. Motor grossly intact bilaterally Extremities: No edema Psych: Appropriate affect Objective Data Active Medications Acetaminophen (Acetaminophen 325 Mg Tablet) 975 mg PO Q6H PRN PRN Reason: Pain, Mild 1-3,fever,headache Last Admin: 09/07/24 05:38 Dose: 975 mg Documented By: ISAÍAS Acetaminophen/Butalbital/Caffeine (Butalb/Acetamin/Caff 50/325/40 Tablet) 1 tab PO Q4H PRN PRN Reason: Migraine Headache Last Admin: 09/06/24 03:20 Dose: 1 tab Documented By: ROBYN Albuterol Sulfate (Albuterol Sulfate 90 Mcg 8 Gm Inhaler) 2 puff INHALE RQ4H PRN PRN Reason: Wheezing Calcium Carbonate (Calcium Carbonate 750 Mg Tab.Chew) 750 mg PO Q4H PRN PRN Reason: Heartburn Dextrose (Dextrose 50 % 25 Gm/50 Ml Syringe) 25 gm IVPUSH Q15M PRN; Protocol PRN Reason: per Hypoglycemia Standing Ord. Docusate Sodium (Docusate Sodium 100 Mg Capsule) 100 mg PO BID [facility] Last Admin: 09/06/24 20:41 Dose: 100 mg Documented By: ISAÍAS Duloxetine HCl (Duloxetine Hcl 60 Mg Capsule.) 60 mg PO DAILY [facility] Last Admin: 09/06/24 09:34 Dose: 60 mg Documented By: LINWOOD Ezetimibe (Ezetimibe 10 Mg Tablet) 10 mg PO DAILY [facility] Last Admin: 09/06/24 09:35 Dose: 10 mg Documented By: LINWOOD Empagliflozin (Empagliflozin 25 Mg Tablet) 25 mg PO DAILY [facility] Last Admin: 09/06/24 09:36 Dose: 25 mg Documented By: LINWOOD Glipizide (Glipizide Xl 10 Mg Tab.Er.24) 10 mg PO DAILY [facility] Last Admin: 09/05/24 13:00 Dose: Not Given Documented By: COLIN Non-Admin Reason: hold per PA. not eating lunch. Glucose (Glucose Gel 15 Gm Gel..Gram.) 15 gm PO Q15M PRN; Protocol PRN Reason: per Hypoglycemia Standing Ord. Heparin Sodium (Porcine) (Heparin Sodium,Porcine 5,000 Unit/Ml Vial) 5,000 unit SUBCUT Q8H [facility] Last Admin: 09/07/24 02:44 Dose: 5,000 unit Documented By: ISAÍAS Piperacillin Sod/Tazobactam (Sod 3.375 gm/ Sodium Chloride) 50 mls @ 100 mls/hr IV Q6H [facility] Last Infusion: 09/07/24 03:14 Dose: Infused Documented By: ISAÍAS Lactated Ringer's (Lr) 1,000 mls @ 80 mls/hr IVCONT .[id number] [facility] Last Infusion: 09/05/24 20:03 Dose: Infused Documented By: ROBYN Insulin Glargine (Insulin Glargine,Hum.Rec.Anlog 100 Unit/Ml 10 Ml Vial) 60 unit SUBCUT BEDTIME [facility] Last Admin: 09/06/24 20:41 Dose: 60 unit Documented By: ISAÍAS Insulin Human Lispro (Insulin Lispro 100 Unit/Ml 3 Ml Vial) 0 unit SUBCUT QIDACHS [facility]; Protocol Last Admin: 09/07/24 07:43 Dose: Not Given Documented By: DADA Non-Admin Reason: No Insulin Coverage Melatonin (Melatonin 3 Mg Tablet) 6 mg PO BEDTIME PRN PRN Reason: Insomnia Morphine Sulfate (Morphine Sulfate 4 Mg/Ml Cartridge) 4 mg IVPUSH Q3H PRN; Protocol PRN Reason: Pain, Severe (Pain Scale 7-10) Last Admin: 09/06/24 07:35 Dose: 4 mg Documented By: COLIN Naloxone HCl (Naloxone Hcl 0.4 Mg/Ml Vial) 0.04 mg IVPUSH Q5M PRN PRN Reason: Excessive sedation or RR < 8 Nitroglycerin (Nitroglycerin 0.4 Mg Tab.Subl) 0.4 mg SUBLINGUAL Q5MX3 PRN PRN Reason: Chest Pain Ondansetron HCl (Ondansetron Hcl 4 Mg/2 Ml Vial) 4 mg IVPUSH Q6H PRN PRN Reason: Nausea and Vomiting Last Admin: 09/05/24 22:48 Dose: 4 mg Documented By: ROBYN Oxycodone HCl (Oxycodone Hcl Immed Release 5 Mg Tablet) 10 mg PO Q4H PRN PRN Reason: Pain, Moderate(Pain Scale 4-6) Last Admin: 09/06/24 13:16 Dose: 10 mg Documented By: LINWOOD Prednisone (Prednisone 5 Mg Tablet) 5 mg PO DAILY [facility] Last Admin: 09/06/24 09:36 Dose: 5 mg Documented By: LINWOOD Pregabalin (Pregabalin 150 Mg Capsule) 300 mg PO BEDTIME [facility] Last Admin: 09/06/24 20:40 Dose: 300 mg Documented By: ISAÍAS Ropinirole HCl (Ropinirole Hcl 0.25 Mg Tablet) 0.25 mg PO BID [facility] Last Admin: 09/06/24 20:41 Dose: 0.25 mg Documented By: ISAÍAS Sodium Chloride (0.9 % Sodium Chloride Flush 3 Ml Syringe) 3 ml IVFLUSH QSHIFT [facility] Last Admin: 09/06/24 21:24 Dose: 3 ml Documented By: ISAÍAS Tizanidine HCl (Tizanidine Hcl 4 Mg Tablet) 4 mg PO BID [facility] Last Admin: 09/06/24 20:41 Dose: 4 mg Documented By: ISAÍAS Zolpidem Tartrate (Zolpidem Tartrate 5 Mg Tablet) 5 mg PO BEDTIME PRN PRN Reason: Sleep Labs 09/05/24 05:03 09/05/24 05:03 Labs: Laboratory Results - last 24 hr 09/06/24 09/06/24 09/06/24 11:12 16:09 19:37 POC Glucose 130 H 143 H 148 H 09/07/24 07:20 POC Glucose 95 Microbiology Microbiology Results: Microbiology 09/04/24 17:17 Gram Stain - Final Abscess Rectal Routine Culture - Final Viridans streptococcus group 09/04/24 15:12 Blood Culture - Preliminary Blood - Venous No growth after 48 hours. 09/04/24 15:12 Blood Culture - Preliminary Blood - Venous No growth after 48 hours. Assessment and Plan (1) Perirectal abscess: Status: Acute (2) Status post incision and drainage: Status: Acute Plan 54F PMH HTN, RA, insulin-dependent diabetes, HLD, CAD w/ hx of [place] 2018 s/p stent, and aortic aneurysm who was admitted to the hospital under general surgery services s/p I&D left perirectal abscess with counter incision right perirectal area. Perirectal abscess, s/p I&D with postoperative fever Temp of 103.1 post op on 09/04 with nausea and vomiting, elevated again at 100.9 on 09/05 Improved with Zofran, morphine and IV Tylenol Currently on Zosyn, cultures positive for Enterococcus/Streptococcus Plan as per surgery Postop hypotension BP has been as low 79/43 Pt asymptomatic, no lightheadedness or dizziness Pt received IVF boluses x2.5L, albumin Hold amlodipine, carvedilol, and olmesartan for now appears to have resolved acute Hypoxic respiratory failure Pt has been hypoxic at 79% on RA Has been on 4 L NC overnight postop, currently on 3L during the day Denies SOB, difficulty breathing, or cough CXR negative for pneumonia but with question of mild interstitial edema; BNP WNL Hx of COPD, noncompliant with home inhalers and nebulizer; not in acute exacerbation DuoNebs p.r.n. Titrate supplemental O2 >92, wean as tolerated Encourage incentive spirometry Headache/migraine CT of head negative for acute intracranial abnormality Resolved with Fioricet Fioricet p.r.n. RA Continue prednisone, resume injectable medications after discharge Insulin-dependent diabetes Pt has been hypoglycemic as high as [address] on sliding scale insulin Continue Jardiance and Lantus Hold glipizide for now as pt still with reduced p.o. intake Continue injectable medications upon discharge HLD Continue statin CAD/history [place] Resume aspirin ad Plavix as per general surgery Class 1 obesity BMI 34.0 Weight loss encouraged Nicotine dependence Smoking cessation encouraged will sign off for now, please recall as needed Quality Stroke Does the patient have a stroke diagnosis?: No VTE Prior VTE?: No VTE Risk Level:: Medical - moderate - high VTE Device Contraindication: N/A - Device Ordered VTE Drug Contraindication: N/A - Med Ordered
[2024-09-07] MEDS: TiZANidine HCL 4 MG TABLET PO (08:46)
[2024-09-07] MEDS: DULoxetine HCl 60 MG CAPSULE.DR PO (08:47)
[2024-09-07] MEDS: rOPINIRole HCL 0.25 MG TABLET PO (08:47)
[2024-09-07] MEDS: Empagliflozin 25 MG TABLET PO (08:47)
[2024-09-07] MEDS: predniSONE 5 MG TABLET PO (08:47)
[2024-09-07] MEDS: Ezetimibe 10 MG TABLET PO (08:47)
[2024-09-07] MEDS: Docusate Sodium 100 MG CAPSULE PO (08:47)
[2024-09-07] MEDS: 0.9 % Sodium Chloride Flush 3 ML SYRINGE IVFLUSH (08:48)
[2024-09-07 11:09] VITALS: BP 124/71; PULSE 65; RESP 18; TEMP 36.4; O2SAT 96
[2024-09-07 11:24] LABS: Glucose, Whole Blood 122 mg/dL (60-115)
--- NOTE | 2024-09-07 14:44 | PC.NURSE ---
Pt daughter came to visit. Got patient in a w/c and was wheeling her around the unit. Patient and daughter educated that they can not leave the unit. They agreed and stated they would not leave the unit. Primary RN questioned where this patient and daughter was. Security called and notified patient and daughter could be outside smoking. Clin supp notified via tiger. Security and RN noticed patient in the parking lot smoking cigarettes. Patient escorted back to the unit by staff. notified.
--- NOTE | 2024-09-07 15:21 | PM.DS ---
DS: Providers Provider Date of Service: 09/07/24 Date of admission: 09/04/24 15:50 Date of discharge: 09/07/24 Primary care physician: ARUNA Matta Consults: 09/04/24 15:42 Consult to Hospitalist Routine Comment: Consulting Provider: [facility] Reason For Exam: DM Attending physician on discharge: Deborah Contreras DS: Diagnosis Discharge Diagnosis (1) Perirectal abscess: Status: Acute (2) Status post incision and drainage: Status: Acute DS: Summary Hospital Course Hospital Course: Pt is a 54 year old female with a significant perirectal abscess came into the ER and was admitted and went to the OR and had drainage - cultures done showing strep viridans no sensitivites done for this organism. Pt did well with the dressing changes and iv antibiotics and now being dc home with sit baths and on po Augmentin. She will follow up with Dr Zendejas later this week in the office. She knows to look out for increasing fevers chills discharge and will complete full course of antibiotics. She does not want to take narcotics and will do well with ibuprofen but has a script sent in if se needs it over the holiday weekend Status at Discharge Cognitive/behavioral status at discharge: good Functional status at discharge: independent ambulation Overall status at discharge: patient is progressing back to baseline Time Attestation Total time managing care of this patient today: 25 mintues. Discharge Coordination Time (in mins): 25 Quality: Safe Use of Opioids Does Pt have an Active Cancer Diagnosis on the Problem List?: No Quality: Stroke Does the patient have a stroke diagnosis?: No Reason for No Anti-thrombotic at DC: Not indicated Reason for No Anticoagulant at DC: Not indicated Reason Not Initiating IV-Tpa: Not indicated Reason for No Anti-thrombotic by Day Two: Not indicated Reason for No Statin at DC: Not indicated Physical Exam Vital Signs: Vital Signs: Last Vital Signs Temp 97.5 F 09/07/24 11:09 Pulse 65 09/07/24 11:09 Resp 18 09/07/24 11:09 BP 124/71 09/07/24 11:09 Pulse Ox 96 09/07/24 11:09 O2 Del Method Nasal Cannula 09/07/24 11:09 O2 Flow Rate 4.0 09/07/24 11:09 BMI result Body Mass Index 34.0 GI: Other: abdomen soft and wound looks good clean. DS: Data Data Completed and Pending Labs on day of discharge: Laboratory Results - last 24 hr 09/06/24 09/06/24 09/07/24 16:09 19:37 07:20 POC Glucose 143 H 148 H 95 09/07/24 11:11 POC Glucose 122 H Preliminary micro results at discharge 09/04/24 15:12 Blood Culture - Preliminary Blood - Venous No growth after 48 hours. 09/04/24 15:12 Blood Culture - Preliminary Blood - Venous No growth after 48 hours. Additional Comments Additional comments: [address] [address] [address] Scan Report Signed Patient: Maria C Luong MR#: [id number] : 1970 Acct:[id number] Age/Sex: 54 / F ADM Date: 09/04/24 Loc: .ED Attending Dr: Ordering Physician: Robert Campbell DO Date of Service: 09/04/24 Procedure(s): CT pelvis w IV con Accession Number(s): [id number] cc: Tristen Chaves; Robert Campbell DO~ Report Number: [id number]: Total DLP = 331.00 mGy-cm EXAMINATION: CT PELVIS WITH IV CONTRAST HISTORY: left buttock abscess COMPARISON: Comparison is made with the prior examination dated 03/26/2021. TECHNIQUE: CT scan of the pelvis was performed without contrast using standard departmental protocol. Coronal and sagittal reformatted images were generated and reviewed. Oral contrast material was not administered at the request of the referring physician. This CT exam was performed with one or more of the following dose reduction techniques: automated exposure control, adjustment of the mA and/or kV according to patient size, use of iterative reconstruction technique. DLP: 331 mGy-cm FINDINGS: There is extensive gas within the perianal soft tissues, left greater than right. There is moderate associated inflammatory stranding. Minimal fluid is seen. There is no ascites in the pelvis. The urinary bladder and uterus have an unremarkable unenhanced appearance. There is no pelvic lymphadenopathy. The bones are intact. CT/CT pelvis w IV con IMPRESSION: Extensive gas within the perianal soft tissues with associated inflammation and minimal fluid. In the absence of prior intervention, findings are worrisome for necrotizing infection. These findings were discussed with Dr. Mendenhall in the emergency room on 09/04/2024 at 3:02 PM. Electronically signed by: Sav Restrepo MD 09/04/2024 03:05 PM EDT RP Dictated By: Sav Restrepo MD Signed By: <Electronically signed by Sav Restrepo MD in OV> 09/04/24 1505 DD/ 1333 TD/TT: 09/04/24 1451 Irrigation Equipment Remover: Discharge Plan Discharge Anticipated Discharge Date/Time: 09/07/24 16:00 Patient Disposition: Home, Self-Care Discharge Diagnosis: Perianal abscess Referrals: Yovany Zendejas MD [Physician] - 2 Weeks Tristen Chaves PA [Primary Care Provider] - 1 Week Discharge Medications: New oxycodone-acetaminophen 5-325 mg tablet 1 tab PO Q6H PRN (Reason: pain) Qty: 20 0RF Rx Instructions: Partial Fill upon patient request. amoxicillin-pot clavulanate [Augmentin] 500-125 mg tablet 1 tab PO TID Qty: 21 0RF Continued clopidogrel [Plavix] 75 mg tablet 1 tab PO DAILY aspirin 81 mg tablet,delayed release (DR/EC) 1 tab PO DAILY glipizide [Glucotrol XL] 10 mg tablet extended release 24hr 10 mg PO DAILY Enbrel SureClick 50 mg/mL (1 mL) pen injector 50 mg subcut MO oxycodone 5 mg tablet 5 mg PO BID PRN (Reason: Pain) olmesartan 40 mg tablet 40 mg PO DAILY ropinirole 0.25 mg tablet 0.25 mg PO BID duloxetine [Cymbalta] 60 mg capsule,delayed release(DR/EC) 60 mg PO DAILY amlodipine 10 mg tablet 10 mg PO DAILY zolpidem 5 mg tablet 5 mg PO BEDTIME PRN (Reason: Sleep) Ozempic 0.25 mg or 0.5 mg (2 mg/3 mL) pen injector 0.25 mg subcut SA carvedilol [Coreg] 25 mg tablet 25 mg PO BID ondansetron 8 mg tablet,disintegrating 8 mg PO Q8H PRN (Reason: nausea) pregabalin 300 mg capsule 300 mg PO BEDTIME Repatha Syringe 140 mg/mL syringe 140 mg subcut Q2W Jardiance 25 mg tablet 25 mg PO DAILY insulin glargine [Lantus Solostar U-100 Insulin] 100 unit/mL (3 mL) insulin pen 85 unit subcut BEDTIME ezetimibe [Zetia] 10 mg tablet 10 mg PO DAILY ergocalciferol (vitamin D2) [Vitamin D2] 1,250 mcg (50,000 unit) capsule 1,000 mcg PO DAILY lansoprazole [Prevacid] 30 mg capsule,delayed release(DR/EC) 30 mg PO BID prednisone 5 mg tablet 5 mg PO DAILY tizanidine 4 mg tablet 4 mg PO BID Discharge Orders: Discharge Order (Routine); Ordered 09/07/24 Ordered By: Deborah Contreras Diet: Advance to usual diet Activity on Discharge: No heavy lifting Stand Alone Forms: Patient Portal Discharge page Print Language: Surinamese Activity Restrictions/Additional Instructions: Hot Sitz baths 3 times a day Change dressings at least twice a day and as often as necessary If the incision area is tender, you may apply an ice pack for short intervals (No more than 20 minutes on, followed by at least 20 minutes off). Do not apply heat. Do not use creams, lotions, or topical antibiotics unless instructed to do so by your surgeon. These can cause infection or allergic reaction. No strenuous activities Call the office for follow-up in 2 weeks - with Dr. Zendejas Call Your Doctor If: -Your temperature exceeds 101.5? F -You experience excessive pain or swelling -You have an unexpected reaction to medication -You have excessive bleeding -You experience continued vomiting/nausea -Your incision begins to separate -Your incision shows signs of infection such as increased redness, swelling, excessive pain, drainage (light blood or clear fluid is normal) or heat Care Plan Goals: Returned to baseline Health Concerns: Known diabetes Perianal abscess, status post creatinine Plan of Treatment: Oral antibiotics Pain management Wound care Assessment: Doing well
--- NOTE | 2024-09-07 15:26 | MHC.CM.PN ---
PT WILL DC HOME TODAY, SHE IS DECLINING [facility] TO TRANSPORT
[2024-09-07 15:27] VITALS: BP 139/74; PULSE 75; RESP 18; TEMP 36.5; O2SAT 92
== END 2024-09-07 16:02 | disposition home or self-care (01) | DRG 395 ==
LOC: HO.ED 15:40 → HO.SSS 15:49 → HO.EDOVER 16:40 → HO.S3 17:51
PROVIDERS: Student in an Organized Health Care Education/Training Program; Admitting Provider Surgery; Emergency Provider Emergency Medicine; PCP Physician Assistant Medical; Visit Provider Surgery
PROC: 0J990ZZ Drainage of Buttock Subcutaneous Tissue and Fascia, Open Approach (ICD-10-PCS; principal; 2024-09-04 15:30)
DX: K61.1 Rectal abscess (principal); I10 Essential (primary) hypertension; M06.9 Rheumatoid arthritis, unspecified; I25.10 Atherosclerotic heart disease of native coronary artery without angina pectoris; E78.5 Hyperlipidemia, unspecified; J44.9 Chronic obstructive pulmonary disease, unspecified; F17.210 Nicotine dependence, cigarettes, uncomplicated; Z71.6 Tobacco abuse counseling; G44.89 Other headache syndrome; R50.82 Postprocedural fever; I95.9 Hypotension, unspecified; B95.4 Other streptococcus as the cause of diseases classified elsewhere; I97.3 Postprocedural hypertension; E66.811 Obesity, class 1; R33.9 Retention of urine, unspecified; Z71.3 Dietary counseling and surveillance; Z68.34 Body mass index [BMI] 34.0-34.9, adult; I25.2 Old myocardial infarction; Z79.4 Long term (current) use of insulin; Z79.02 Long term (current) use of antithrombotics/antiplatelets; Z79.899 Other long term (current) drug therapy
CPT/HCPCS: 36415; 70450; 71046; 72193; 80048; 82040; 82803; 82947; 83605; 83880; 85025; 85027; 87040; 87070; 87205; 94640; 99285; J0131; J0736; J1100; J1644; J2003; J2250; J2270; J2405; J2543; J2704; J2795; J3010; J3370; J7120; P9047; Q9967

== ENCOUNTER → 2024-09-04 13:33 | Outpatient (BNV) | payer OTHER, SELFPAY | PROVIDERS: Emergency Provider Emergency Medicine; PCP Physician Assistant Medical; Visit Provider Radiology Diagnostic Radiology | DX: K61.1 Rectal abscess (principal) | CPT/HCPCS: 72193 ==

== ENCOUNTER 2024-09-04 15:50 | Outpatient (BNV) | payer OTHER, SELFPAY | END 2024-09-05 05:10 | PROVIDERS: Admitting Provider Surgery; Emergency Provider Emergency Medicine; PCP Physician Assistant Medical; Visit Provider Radiology Diagnostic Radiology | DX: R51.9 Headache, unspecified (principal); R60.1 Generalized edema | CPT/HCPCS: 70450; 71046 ==

== ENCOUNTER → 2024-09-04 15:50 | Outpatient (BNV) | payer OTHER, SELFPAY | PROVIDERS: Admitting Provider Surgery; Emergency Provider Emergency Medicine; PCP Physician Assistant Medical; Visit Provider Surgery | DX: Z98.890 Other specified postprocedural states (principal) | CPT/HCPCS: 99024; 99499 ==

== ENCOUNTER → 2024-09-04 15:50 | Outpatient (BNV) | payer OTHER, SELFPAY | PROVIDERS: Admitting Provider Surgery; Emergency Provider Emergency Medicine; PCP Physician Assistant Medical; Visit Provider Physician Assistant | DX: K61.1 Rectal abscess (principal); Z98.890 Other specified postprocedural states | CPT/HCPCS: 99223; 99231; 99232; 99233; 99499 ==

== ENCOUNTER 2024-10-02 11:50 | Outpatient (AMB) | payer OTHER, SELFPAY ==
--- NOTE | 2024-10-02 11:56 | A.OFFVIS_ITS ---
Vital Signs 10/02/24 12:01 Weight 178 lb BP 140/81 H Blood Pressure Location Rt brachial Position Sitting Pulse 117 H Intake Visit Reasons: s/p (L) buttocks wound Intake Note: Patient here s/p wound on Lt buttock. Reports improvement. Patient c/o: no concerns. Denies oozing, pain, tenderness. Under anesthesia procedure: I&D of left perirectal abscess, counter incision on the right perirectal area. Felt Hanger Required: No Accompanied by: Son Allergies azithromycin (From ZITHROMAX) Allergy (Intermediate, Verified 09/04/24 16:09) HIVES & RASH bupropion (From WELLBUTRIN) Allergy (Mild, Verified 09/04/24 16:09) RASH venlafaxine (From EFFEXOR) Allergy (Mild, Verified 09/04/24 16:09) RASH citalopram (Celexa) Allergy (Unknown, Verified 09/04/24 16:09) Unknown doxycycline (DOXYCYCLINE) Adverse Reaction (Mild, Verified 09/04/24 16:09) NAUSEA & VOMITING BuPROPion HCl Allergy (Severe, Uncoded 09/04/24 16:09) Anaphylaxis Doxycycline Hyclate Allergy (Unknown, Uncoded 09/04/24 16:09) Unknown HPI HPI s/p (L) buttocks wound: Details: She underwent I and D and debridement of a left perirectal abscess as an inpatient last 09/04/2024. She tolerated procedure well. She currently denies significant complaints and feels well overall. She feels that the area has healed well. She he is a known diabetic and admits to having poor blood sugar control. [facility] Medical History Perirectal abscess COPD (chronic obstructive pulmonary disease) Hx LEEP (loop electrosurgical excision procedure), cervix, Neuropathy Lumbar spondylosis Cervical radiculitis Lumbar stenosis Myocardial infarction Tobacco abuse Aortic ectasia Cervical radiculopathy Anxiety Restless leg syndrome Hyperlipidemia GERD (gastroesophageal reflux disease) Metabolic syndrome PLMD (periodic limb movement disorder) Obstructive sleep apnea Aortic aneurysm Rheumatoid arthritis Diabetes Fatty liver Coronary artery disease Hypertension Surgical History Hx of hand surgery History of endometrial ablation History of esophagogastroduodenoscopy (EGD) H/O colonoscopy Hx of heart artery stent History of back surgery Hx of tonsillectomy H/O tubal ligation Hx of cholecystectomy Social History Household Members: Family Housing: House Are you a primary animal caretaker supervisor to a significant other at home: No Do you presently have visiting nurse or other home services: No Alcohol intake: never Comment: OR Patient Tobacco Use Status: Never used Tobacco Tobacco use type: Cigarette Cigarette Packs Per Day: 0.5 Cigarettes Per Day: 10 Years Smoked: 40 service: No Review of Systems Const Denies chills and Denies fever(s) Physical Exam Vital Signs: Last Vital Signs Pulse 117 H 10/02/24 12:01 BP 140/81 H 10/02/24 12:01 Const General: comfortable Resp Effort & Inspection: normal respiratory effort GI Other: Rectal exam shows the I&D site to be was completely reepithelialized and healed, no new induration, no redness, no significant discharge Assessment & Plan Assessment & Plan (1) Perirectal abscess: Code(s): K61.1 - Rectal abscess Category: Medical Plan: Status post I&D and debridement. The surgical site is well healed. There is no new induration or fluctuance. The area seemed to be completely epithelialized already I instructed her to continue doing warm soaks to the area and to observe good hygiene She does not need any packing or frequent dressing change anymore I did emphasized to her the importance of good blood sugar control. I can see her in the office on a p.r.n. basis. Coding Level of Care Code Est Pt Level 2 (63263) Diagnoses Perirectal abscess K61.1
[2024-10-02 12:01] VITALS: BP 140/81; PULSE 117
--- OUTSIDE RECORDS SUMMARY | 2024-10-02 13:50 | XMS_ITS | Patient Health Record ---
Author Organization [facility] Address [address] [place] [address] Care Team Providers Care Environmental Associate Name Role Phone TRISTEN CLIFFORD PA-C Primary [...] Blood Reviewed date:11/07/2023 02:48:12 PM Interpretation: Performing Lab:[facility], [address] [place] [id number] Notes/Report: Glucose, Whole Blood 206 60-115 mg/dL METER # : [id number] Pathology Reviewed date:11/13/2023 08:16:16 AM Interpretation: Performing Lab:[facility], [address] [place] [id number] Notes/Report: ----- Name: Helen Luong Age/Sex: 53/F [facility] 1970 [id number]#: [id number] Attend Dr: Tim Dozier MD Re11/07/23 Status : [facility] Location: [facility] Disch: ----- SPEC : [id number] RECD : 11/07/23-1011 STATUS: NARESH MORELAND NUM: [id number] KEISHA: 11/07/23-34 [facility] DR: Tim Dozier MD ENTERED: 11/07/23-02 04 SP TYPE: Surgical OTHR DR: rTisten Clifford PA ORDERED: HE Stain/6, Gross Micro [...] Helen Luong Age/Sex: 53/F : 1970 Unit#: [id number] Attend Dr: Tim Dozier MD Re11/07/23 Status : [facility] Location: [facility] Disch: ----- SPEC : [id number] RECD : 11/07/232 STATUS: NARESH PIERCESilvia NUM: [id number] KEISHA: 11/07/2334 [facility] DR: Tim Dozier MD ENTERED: 11/07/23 SP [...] and B Copies To: Tim Dozier MD [address] [place], [place] [id number] Tristen Clifford [address] [place] [address] ----- Signed (signature on file) Bolivar Dawkins [...] Problem Status W/U Status Risk Notes Problem 606937905 Colon cancer screening (Z12.11) Active confirmed Problem 23203273 Rectal bleeding (K62.5) Active confirmed Problem 249732510 Nausea (R11.0) Active confirmed Problem 90255046 Abdominal pain, epigastric (R10.13) Active confirmed Problem 710081778 Elevated LFTs (R79.89) Active confirmed Problem 064621150 Gastroesophageal reflux disease without esophagitis (K21.9) Active confirmed Problem 135852754 Fatty liver (K76.0) Active confirmed Vital Signs Blood pressure diastolic 00 mm Hg 10/12/2023 Height 66 in 10/12/2023 Blood pressure systolic 00 mm Hg 10/12/2023 Weight 209 lbs 10/12/2023 BMI 33.73 kg/m2 10/12/2023 Encounters Encounter Location Date Provider Diagnosis [facility] Outpatient [address] [place], [place] [id number] 11/07/2023 Tim Dozier Jr Rectal bleeding K62.5 and Nausea R11.0 [facility] [address] [place] [phone] 10/12/2023 Tim Dozier Jr Nausea R11.0 ; Rectal bleeding K62.5 and Fatty liver K76.0 [facility] [address] [place] [address] 11/13/2023 Tim Dozier Jr Assessments Encounter Date [...] Name:Tim Curtis tello , 11/04/2024 09:20:00 AM, [address] [place] [address], [address], [place], [address], Insurance Providers Payer Name Payer Address Payer Phone Subscriber Number Group Number Insured Name Patient Relationship to Insured Coverage Start Date Coverage End Date [facility] [address] [place] [address] [id number] RAFAELA LUONG Self - patient is the insured Medical (General) History Medical History History ICD Code esophageal reflux, EGD , no esophagitis, Gaines's, or H. pylori. Currently using OTC antacids and diet for treatment hypertension anxiety degenerative joint disease spinal stenosis elevated cholesterol thoracic aortic aneurysm Coronary artery disease with history of [place] 04/03, PCI with stent placement asthma/copd urinary incontinence rheumatoid arthritis sleep apnea not using CPAP currently diabetes colonoscopy 09/06/19, 2 tubular adenomas, five-year followup Surgical History Surgery Date(Month/Year) tonsillectomy cholecystectomy back surgery/laminectomy Nerve stimulator implant and removal LEEP hand surgery endometrial ablation tubal ligation cyst removal Hospitalization History Reason Date(Month/Year) chest pain 05/2019
== END 2024-10-02 12:38 | disposition home or self-care (01) ==
PROVIDERS: PCP Physician Assistant Medical; Visit Provider Surgery
DX: K61.1 Rectal abscess (principal)
CPT/HCPCS: 99024

== ENCOUNTER → 2024-10-02 11:50 | Outpatient (BNVA) | payer OTHER, SELFPAY | PROVIDERS: PCP Physician Assistant Medical; Visit Provider Surgery | DX: K61.1 Rectal abscess (principal) | CPT/HCPCS: 99212 ==